=== PATIENT | female | born 1995 | race Caucasian/White ===

== ENCOUNTER 2021-12-02 02:50 | Inpatient (IN) | payer BC, SELFPAY ==
[2021-12-02] VITALS (80 sets, daily range): BP systolic 80–158; BP diastolic 51–85; PULSE 72–119; TEMP 36.2–37.2; O2SAT 88–100; BMI 35.2
[2021-12-02] MEDS: Lactated Ringers 500 ML 999 ML IV ×2 (03:20→10:50)
[2021-12-02 03:27] LABS: Absolute Lymphocyte Count 1.27 X10^3/uL (0.83-4.51); Absolute Neutrophil Count 11.2 X10^3/uL (2.0-7.7); Basophil# 0.04 X10^3/uL; Basophil% 0.3 % (0-1); Eosinophil# 0.02 X10^3/uL; Eosinophils% 0.2 % (0-5); Hematocrit 36.1 % (37-47); Hemoglobin 12.4 g/dL (12.0-15.0); Lymphocyte # 1.27 X10^3/ul (0.83-4.51); Lymphocyte % 9.7 % (19-41); Mean Corp Hgb Conc 34.3 g/dL (32-36); Mean Corpuscular Hgb 30.3 pg (27.0-32.0); Mean Corpuscular Volume 88.3 fL (81-99); Mean Platelet Vol. 10.1 fl (6.2-12.0); Monocyte# 0.49 X10^3/uL; Monocyte% 3.7 % (0-10); NRBC Flagged by Analyzer 0 % (0-5); Neutrophil # 11.21 X10^3/uL (2.7-7.7); Neutrophil % 85.6 % (47-70); POSITIVE COUNT YES; Platelet Count 162 K/mm3 (150-450); RBC Distribution Width SD 42.2 fl (35.1-43.9); Red Blood Count 4.09 M/mm3 (4.2-5.4); White Blood Count 13.1 K/mm3 (4.4-11.0)
[2021-12-02 03:52] LABS: Differential Indicated SCAN CRITERIA MET
[2021-12-02] MEDS: Lactated Ringers 1,000 ML 50 ML IV (04:21)
[2021-12-02] MEDS: fentaNYL 100 MCG/2 ML Ampul IV (04:26)
[2021-12-02] MEDS: fentaNYL-bupivacaine (epidural) 100 ML BAG EPIDURAL ×2 (06:10→10:47)
--- NOTE | 2021-12-02 08:23 | PCM.HP.OB ---
HPI - General General Date of Admission: 12/02/21 HPI Narrative CHEO MILLS, is a 26 F at 39.3 weeks gestation who presents to triage in spontaneous labor. She started having contractions earlier today. Positive movement. Denies any loss of fluid or vaginal bleeding. complicated by history of depression and rubella non-immune status. Maternal Data Information SARA Calculator Estimated Delivery Date Method Current WG Current Estimate 12/06/21 Manual 39w 3d PFSH PFSH Medical History (Updated 12/02/21 @ 08:30 by Jimena Jovel CNM) Anxiety Depression Family history of hearing loss at age younger than 7 years Right wrist injury Home Medications 1 tab PO/SL DAILY 12/02/21 [History Last Taken 11/30/21] Allergy/AdvReac Type Severity Reaction Status Date / Time No Known Allergies Allergy Verified 12/02/21 00:19 Surgical History [place] teeth extracted Social History Smoking Status: Never smoker History Elective abortions Hx Para 0 Spontaneous abortions Hx # Term Pregnancies Ectopic pregnancies Hx # Pregnancies Multiple births # of living children NST FHR Rate Baby A Baseline: 155 Variability:: Moderate Accelerations:: 15 x 15 Decelerations:: None NST Reactive:: Yes FHR Category:: Category I Uterine Activity:: 3-4 minutes ROS Eyes Eyes: Denies blurry vision, change in vision or spots in vision ENT HEENT: Denies dizziness or headache(s) Cardiovascular Cardiovascular: Denies abdominal pain, chest pain or dyspnea Respiratory/Chest Respiratory/Chest: Denies cough, dyspnea, shortness of breath at rest or shortness of breath with exertion Gastrointestinal Gastrointestinal: Denies abdominal pain, diarrhea or vomiting Genitourinary Genitourinary: Denies change in urinary stream, difficulty urinating or dysuria Musculoskeletal Musculoskeletal: Reports none Integumentary Integumentary: Denies rash Neurologic Neurologic: Denies dizziness, headache(s), memory loss or weakness Psychiatric Psychiatric: Reports none Vital Signs Vital Signs Vital Signs: 12/02/21 00:23 12/02/21 00:26 12/02/21 00:37 Temperature 98.1 F Temperature Source Temporal Pulse Rate 102 H 87 88 Blood Pressure 121/71 H BP Systolic 121 BP Diastolic 71 Pulse Ox 96 92 96 12/02/21 03:57 12/02/21 04:02 12/02/21 04:07 Temperature Temperature Source Pulse Rate 80 80 85 Blood Pressure 127/82 H BP Systolic 127 BP Diastolic 82 Pulse Ox 99 100 98 12/02/21 04:12 12/02/21 04:13 12/02/21 04:17 Temperature Temperature Source Pulse Rate 76 80 86 Blood Pressure 129/79 H BP Systolic 129 BP Diastolic 79 Pulse Ox 99 93 96 12/02/21 04:22 12/02/21 04:27 12/02/21 04:32 Temperature Temperature Source Pulse Rate 79 78 80 Blood Pressure BP Systolic BP Diastolic Pulse Ox 100 99 99 12/02/21 04:37 12/02/21 04:42 12/02/21 04:44 Temperature Temperature Source Pulse Rate 73 80 93 Blood Pressure 124/60 H BP Systolic 124 BP Diastolic 60 Pulse Ox 96 97 12/02/21 04:47 12/02/21 04:52 12/02/21 04:57 Temperature Temperature Source Pulse Rate 81 74 72 Blood Pressure 114/57 L BP Systolic 114 BP Diastolic 57 Pulse Ox 98 97 98 12/02/21 05:02 12/02/21 05:07 12/02/21 05:12 Temperature Temperature Source Pulse Rate 85 79 73 Blood Pressure BP Systolic BP Diastolic Pulse Ox 99 98 97 12/02/21 05:14 12/02/21 05:17 12/02/21 05:22 Temperature Temperature Source Pulse Rate 75 93 78 Blood Pressure 115/65 BP Systolic 115 BP Diastolic 65 Pulse Ox 99 98 12/02/21 05:27 12/02/21 05:28 12/02/21 05:32 Temperature Temperature Source Pulse Rate 84 75 94 Blood Pressure 127/75 H BP Systolic 127 BP Diastolic 75 Pulse Ox 100 99 12/02/21 05:37 12/02/21 05:42 12/02/21 05:47 Temperature Temperature Source Pulse Rate 109 H 85 96 Blood Pressure 129/72 H BP Systolic 129 BP Diastolic 72 Pulse Ox 97 99 99 12/02/21 05:48 12/02/21 05:52 12/02/21 05:54 Temperature Temperature Source Pulse Rate 81 90 91 Blood Pressure 143/85 H 119/64 BP Systolic 143 119 BP Diastolic 85 64 Pulse Ox 99 12/02/21 05:58 12/02/21 05:59 12/02/21 06:04 Temperature Temperature Source Pulse Rate 111 H 105 H Blood Pressure 120/63 114/66 BP Systolic 120 114 BP Diastolic 63 66 Pulse Ox 99 98 12/02/21 06:08 12/02/21 06:09 12/02/21 06:12 Temperature Temperature Source Pulse Rate 101 H 114 H 108 H Blood Pressure 111/70 112/66 BP Systolic 111 112 BP Diastolic 70 66 Pulse Ox 98 12/02/21 06:14 12/02/21 06:18 12/02/21 06:19 Temperature Temperature Source Pulse Rate 98 103 H 106 H Blood Pressure 108/67 BP Systolic 108 BP Diastolic 67 Pulse Ox 98 98 12/02/21 06:22 12/02/21 06:24 12/02/21 06:25 Temperature Temperature Source Pulse Rate 86 84 97 Blood Pressure 109/67 BP Systolic 109 BP Diastolic 67 Pulse Ox 98 98 12/02/21 06:30 12/02/21 06:35 12/02/21 06:40 Temperature Temperature Source Pulse Rate 93 95 88 Blood Pressure BP Systolic BP Diastolic Pulse Ox 98 99 98 12/02/21 06:45 12/02/21 06:50 12/02/21 06:55 Temperature Temperature Source Pulse Rate 80 87 100 Blood Pressure BP Systolic BP Diastolic Pulse Ox 98 98 98 12/02/21 06:59 12/02/21 07:00 12/02/21 07:05 Temperature Temperature Source Pulse Rate 119 H 105 H 77 Blood Pressure 104/69 BP Systolic 104 BP Diastolic 69 Pulse Ox 88 96 98 12/02/21 07:10 12/02/21 07:15 12/02/21 07:20 Temperature Temperature Source Pulse Rate 99 107 H 86 Blood Pressure BP Systolic BP Diastolic Pulse Ox 98 99 98 12/02/21 07:29 Temperature 98.3 F Temperature Source Temporal Pulse Rate 100 Blood Pressure 109/60 BP Systolic 109 BP Diastolic 60 Pulse Ox Weight Weight: 205 lb Body Mass Index (BMI) 35.2 Physical Exam Const alert, oriented x3 and no apparent distress General Appearance: cooperative Orientation / Consciousness: awake Exam Limitations: no limitations HEENT normocephalic Head and Scalp: normal to inspection Eyes General Eye: normal appearance of both eyes Neck full ROM and no lymphadenopathy Lymph Lymphatic: no lymphadenopathy noted Chest inspection of chest normal Resp normal respiratory effort, normal air movement and clear to auscultation bilaterally Effort and Inspection: able to speak in complete sentences and symmetric chest movement Cardio regular rate and regular rhythm GI normal to inspection, nondistended, normoactive bowel sounds Manual OB Exam: presentation cephalic, dilated 4, effaced 80 and station -2 Amniotic Fluid: clear amniotic fluid Back/Spine normal ROM Extremity full ROM and no calf tenderness Skin no rashes or lesions noted General Skin Exam: no breakdown Neuro oriented x3 and CN's II-XII intact bilaterally Psych mental status grossly normal and thought process normal Labs Labs Labs: Blood Type B POSITIVE Antibody Screen NEGATIVE Hct 36.1 % (37-47) L Hgb 12.4 g/dL (12.0-15.0) Rubella - NON immune HB- neg HC- neg HIV- NR RPR- NR GBS - negative Assessment & Plan (1) 39 weeks gestation of : (2) Spontaneous onset of labor: (3) Depression: QUALIFIERS: Depression Type: unspecified Qualified Code(s): F32.A - Depression, unspecified PLAN: Admit to labor and delivery Routine labs Start IV and titrate per orders GBS negative Epidural when indicated CE in 2 hours and if unchanged- start Pitocin IV at 2 mu/min and titrate per policy Anticipate Dr. Akers notified of admission and is collaborating physician
[2021-12-02] MEDS: Lactated Ringers 1,000 ML 200 ML IV (09:57)
[2021-12-02] MEDS: Oxytocin 30 units/NS 500 ml 30 UNITS/500 ML IV.SOLN IV (09:59)
[2021-12-02] MEDS: Oxytocin 30 units/NS 500 ml 30 UNITS/500 ML IV.SOLN 334 UNITS IV (16:50)
--- NOTE | 2021-12-02 17:10 | EX.PCM.OBRPT ---
Assessment & Plan (1) (spontaneous vaginal delivery): (2) Rubella non-immune status, antepartum: (3) Laceration, obstetrical, first degree: Maternal Data Information SARA Calculator Estimated Delivery Date Method Current WG Current Estimate 12/06/21 Manual 39w 3d Vaginal Delivery Maternal Presentation Maternal Presentation: - (Spontaneous labor) Maternal Presentation: at 39.3 weeks gestation that presented in spontaneous labor. Operative Information Date of Procedure: 12/02/21 Pre-Operative Diagnosis: Term gestation, Spontaneous labor Post-Operative Diagnosis: Same, live male Surgery / Procedure Performed: Spontaneous Vaginal Delivery Type of Anesthesia: Epidural Drain: Barnett to straight drain Estimated Blood Loss: 300 Time of Delivery: 16:48 Findings Description of Procedure: Pushed with patient at bedside once complete dilation. With maternal effort, head delivered and left arm and hand next to head. With next push, posterior then anterior shoulder and remainder of body delivered. Vigorous male placed on maternal abdomen and attended to by nursing staff. Pitocin IV started for active management of the third stage of labor. Placenta delivered spontaneously and intact. 3 vessel cord clamped and cut by FOB. First degree vaginal laceration repaired in usual fashion with Vicryl 3-0 Rapide. Hemostasis obtained. Fundus Firm 2 below U. EBL 300 cc, APGARS 9/9. Patient and infant bonding well at this time. Dr. Akers notified of delivery. Presentation: Vertex Amniotic Membrane Rupture Type: Artificial Amniotic Fluid Description: Clear Placental Delivery Description: Spontaneous Placenta Disposition: [facility] Cord Vessel Description: 3 Vessels Cord Entanglement: None Nuchal Cord Compression: Without compression A Gender: Male (1 minute): 9 (5 minute): 9 Delayed Cord Clamping: Yes
[2021-12-02] MEDS: 0.9% Saline Lock 10 ML Syringe IV (19:36)
--- NOTE | 2021-12-02 20:49 | NURSING ---
report given to carol GARCIA. that RN to assume care of pt at this time.
[2021-12-03] VITALS (12 sets, daily range): BP systolic 92–128; BP diastolic 53–70; PULSE 65–85; RESP 16–18; TEMP 36.1–36.8; O2SAT 99–100
[2021-12-03] MEDS: Acetaminophen 500 MG Tablet 1000 MG PO ×2 (03:28→11:51)
[2021-12-03] MEDS: Naproxen 500 MG Tablet PO ×2 (04:10→18:04)
--- NOTE | 2021-12-03 08:45 | PN.OBGYN_ITS ---
Subjective Subjective Doing well per patient and nursing staff. Ambulating and taking PO without difficulty. Voiding and passing flatus. Pain controlled. Bottlefeeding. Denies headache, visual changes, chest pain, shortness of breath, leg pain or increased bleeding. Lochia normal.Would like to be discharged home today. Objective Data Objective Data Vital Signs: Vital Signs Temp Pulse Resp BP Pulse Ox 98.3 F 71 18 116/70 100 12/03/21 00:25 12/03/21 03:33 12/03/21 03:33 12/03/21 03:33 12/03/21 03:33 Oxygen Delivery Method Room Air Weight: 205 lb Body Mass Index (BMI) 35.2 Intake & Output: Intake and Output for Last 24 Hours 12/01/21 12/02/21 12/03/21 23:59 23:59 23:59 Intake Total 4804.53 / 4804.53 Output Total 3150 / 3150 Balance 1654.53 / 1654.53 Lab / Micro Data Result Diagrams: 12/02/21 03:15 Micro: Microbiology 12/02/21 03:10 Nasal Secretion SARS-CoV-2 Antigen (Rapid) - Final ROS Constitutional Constitutional: Reports systems reviewed and no addt'l complaints, except as documented; Denies headache(s) Eyes Eyes: Denies acute decrease in peripheral vision, blurry vision or change in vision ENT HEENT: Reports systems reviewed and no addt'l complaints, except as documented Cardiovascular Cardiovascular: Denies chest pain or dizziness Respiratory/Chest Respiratory/Chest: Denies cough, dyspnea, dyspnea on exertion, shortness of breath at rest or shortness of breath with exertion Gastrointestinal Gastrointestinal: Denies abdominal pain, diarrhea, nausea or vomiting Genitourinary Genitourinary: Denies abdominal discomfort Musculoskeletal Musculoskeletal: Denies limited range of motion Integumentary Integumentary: Reports systems reviewed and no addt'l complaints, except as documented Neurologic Neurologic: Reports systems reviewed and no addt'l complaints, except as documented Psychiatric Psychiatric: Reports systems reviewed and no addt'l complaints, except as docu mented Endocrine Endocrinology: Reports systems reviewed and no addt'l complaints, except as documented Hematologic/Lymphatic Hematologic/Lymphatic: Reports systems reviewed and no addt'l complaints, except as documented Allergic/Immunologic Allergic/Immunologic: Reports systems reviewed and no addt'l complaints, except as documented Physical Exam Const alert and oriented x3 General Appearance: cooperative Orientation / Consciousness: awake, oriented to person, oriented to place and oriented to time Exam Limitations: no limitations HEENT normocephalic Head and Scalp: normal to inspection, normocephalic and atraumatic Face and Sinus: normal facial exam Eyes General Eye: normal appearance of both eyes Neck full ROM Chest Chest: symmetrical chest wall rise Resp normal respiratory effort and normal air movement Auscultation: clear to auscultation bilaterally Cardio regular rate, regular rhythm, S1 normal heart sound, S2 normal heart sound, no murmurs, no rub, no gallops and no clicks GI normal to inspection, nondistended, normoactive bowel sounds and non-tender appearance of the vagina normal Bladder / Kidney Exam: no CVA tenderness Back/Spine normal ROM Extremity normal to inspection and full ROM Skin no rashes or lesions noted Neuro oriented x3, CN's II-XII intact bilaterally and moves all extremities Sensorium / Orientation: awake, alert and oriented to person Motor Exam: clonus absent Deep Tendon Reflexes: Rt Patellar (L4): 2+ and Lt Patellar (L4): 2+ Assessment & Plan (1) Laceration, obstetrical, first degree: (2) (spontaneous vaginal delivery): (3) Rubella non-immune status, antepartum: (4) Depression: QUALIFIERS: Depression Type: unspecified Qualified Code(s): F32.A - Depression, unspecified PLAN: 1) Routine PP care 2) Pain management 3) VSS 4) Rubella non immune, vaccination if desires 5) Bottle feeding 6) D/C home today per patient request 7) Declines LARC
--- NOTE | 2021-12-03 13:16 | DS.PCM_ITS ---
Providers Date of Admission: 12/02/21 Reason For Visit: LABOR Diagnosis Discharge Diagnosis (1) Laceration, obstetrical, first degree: Status: Acute Code(s): O70.0 - First degree perineal laceration during delivery (2) (spontaneous vaginal delivery): Status: Acute Code(s): O80 - Encounter for full-term uncomplicated delivery (3) Rubella non-immune status, antepartum: Status: Acute Code(s): O99.891 - Other specified diseases and conditions complicating ; Z28.3 - Underimmunization status (4) Depression: Status: Acute Code(s): F32.A - Depression, unspecified Qualifiers: Depression Type: unspecified Qualified Code(s): F32.A - Depression, unspecified Medications at Discharge Home Medications 1 tab PO/SL DAILY 12/02/21 acetaminophen 1,000 mg PO Q6H PRN PRN #0 tab 12/03/21 benzocaine-menthol [Dermoplast (with menthol)] 1 spray TOPICAL TID PRN PRN #0 g 12/03/21 naproxen 500 mg PO Q8H PRN PRN #0 tab 12/03/21 Weight / BMI Weight Weight: 205 lb Body Mass Index (BMI) 35.2 ABG / Lab / Microbiology Data Result Diagrams: 12/02/21 03:15 Microbiology: Microbiology 12/02/21 03:10 Nasal Secretion SARS-CoV-2 Antigen (Rapid) - Final Meaningful Use Info Meaningful Use Diagnoses (Choose all that apply): None applicable Discharge Plan Admission Admit Date/Time: 12/02/21 02:50 Primary Reason for Your Visit: Vaginal delivery Attending Provider: Jimena Jovel Instructions Patient Instructions: After a Vaginal Additional Instructions / Restrictions: Follow up in 2 weeks for virtual visit and 6 weeks . Discharge Orders/Prescriptions Prescriptions: New Dermoplast (with menthol) 20-0.5 % Aerosol 1 spray topical TID PRN PRN (Reason: perineal discomfort) Qty: 0 RF: 0 acetaminophen 500 mg Tablet 1,000 mg PO Q6H PRN PRN (Reason: Pain 1-10 Or Fever) Qty: 0 RF: 0 naproxen 500 mg Tablet 500 mg PO Q8H PRN PRN (Reason: Pain Score 1-3) Qty: 0 RF: 0 Continued 1 tab PO/SL DAILY RF: 0 Referrals / Follow Up: Jimena Jovel CNM [Certified Nurse Opthalmic Tech] - Disposition Disposition (needs filled in before D/C Order can be placed): Home, Self Care
[2021-12-04] MEDS: Acetaminophen 500 MG Tablet 1000 MG PO (00:08)
[2021-12-04 01:45] VITALS: BP 108/55; PULSE 68; RESP 16; TEMP 36.1
--- NOTE | 2021-12-04 08:16 | PCM.PN.OB ---
Subjective Subjective Denies complaints Objective Data Objective Data Vital Signs: Vital Signs Temp Pulse Resp BP Pulse Ox 97 F L 68 16 108/55 L 99 12/04/21 01:45 12/04/21 01:45 12/04/21 01:45 12/04/21 01:45 12/03/21 09:15 Oxygen Delivery Method Room Air Weight: 205 lb Body Mass Index (BMI) 35.2 Intake & Output: Intake and Output for Last 24 Hours 12/02/21 12/03/21 12/04/21 23:59 23:59 23:59 Intake Total 4804.53 / 4804.53 Output Total 3150 / 3150 Balance 1654.53 / 1654.53 Lab / Micro Data Result Diagrams: 12/02/21 03:15 Micro: Microbiology 12/02/21 03:10 Nasal Secretion SARS-CoV-2 Antigen (Rapid) - Final Physical Exam Const alert, oriented x3 and no apparent distress HEENT normocephalic GI soft to palpation, non-tender and non-distended GI Narrative: fundus firm, mid & below umbilicus Extremity normal to inspection and no calf tenderness Assessment & Plan (1) (spontaneous vaginal delivery): COMMENT: PPD#2 PLAN: D/c home
[2021-12-04 08:46] VITALS: BP 104/57; PULSE 76
[2021-12-04] MEDS: Benzocaine/Lanolin/Aloe Vera 1 SPRAY EACH TOPICAL (08:59)
[2021-12-04] MEDS: Senna/Docusate Sodium 1 Tablet PO (08:59)
[2021-12-04] MEDS: Naproxen 500 MG Tablet PO (09:00)
[2021-12-04 09:38] VITALS: BP 104/57; PULSE 82; RESP 18; TEMP 36.3; O2SAT 98
[2021-12-04 12:54] VITALS: BP 112/67; PULSE 86
[2021-12-04 13:03] VITALS: BP 112/67; PULSE 86; RESP 18; TEMP 36.8; O2SAT 98
== END 2021-12-04 13:50 | disposition home or self-care (01) | DRG 807 ==
LOC: WPOUT 02:57 → WP 02:57
PROVIDERS: Admitting Provider Advanced Practice Midwife; Visit Provider Advanced Practice Midwife
DX: O99.344 Other mental disorders complicating childbirth (principal); Z37.0 Single live birth; F32.A Depression, unspecified; F41.9 Anxiety disorder, unspecified; O69.81X0 Labor and delivery complicated by cord around neck, without compression, not applicable or unspecified; O70.0 First degree perineal laceration during delivery; Z3A.39 39 weeks gestation of pregnancy
CPT/HCPCS: 59025; 59050; 85025; 86850; 86900; 86901; 87426; 99218; J7120; A4216; G0378

== ENCOUNTER → 2024-02-25 | Outpatient (CLI) | payer OTHER, SELFPAY ==
[2024-02-25 15:41] LABS: Absolute Lymphocyte Count 1.87 X10^3/uL (0.83-4.51); Absolute Neutrophil Count 4.4 X10^3/uL (2.0-7.7); Basophil# 0.03 X10^3/uL; Basophil% 0.5 % (0-1); Eosinophil# 0.06 X10^3/uL; Eosinophils% 0.9 % (0-5); Hematocrit 39.9 % (37-47); Hemoglobin 13.1 g/dL (12.0-15.0); Lymphocyte # 1.87 X10^3/ul (0.83-4.51); Lymphocyte % 28.2 % (19-41); Mean Corp Hgb Conc 32.8 g/dL (32-36); Mean Corpuscular Hgb 29.4 pg (27.0-32.0); Mean Corpuscular Volume 89.7 fL (81-99); Mean Platelet Vol. 11.4 fl (6.2-12.0); Monocyte# 0.25 X10^3/uL; Monocyte% 3.8 % (0-10); NRBC Flagged by Analyzer 0 % (0-5); Neutrophil % 66.3 % (47-70); Platelet Count 161 K/mm3 (150-450); RBC Distribution Width CV 12.4 % (11.6-14.6); RBC Distribution Width SD 40.4 fl (35.1-43.9); Red Blood Count 4.45 M/mm3 (4.2-5.4); White Blood Count 6.6 K/mm3 (4.4-11.0)
[2024-02-25 16:33] LABS: Thyroid Stim Hormone (TSH) 1.75 uIU/mL (0.358-3.74)
== END | disposition home or self-care (01) ==
PROVIDERS: Referring Provider Student in an Organized Health Care Education/Training Program; Visit Provider Student in an Organized Health Care Education/Training Program
DX: F32.9 Major depressive disorder, single episode, unspecified (principal)
CPT/HCPCS: 36415; 84443; 85025

== ENCOUNTER 2024-11-19 17:11 | Emergency (ER) | payer OTHER, SELFPAY ==
[2024-11-19 17:12] VITALS: BP 118/82; PULSE 97; RESP 18; TEMP 36.8; O2SAT 100; BMI 31.6
--- NOTE | 2024-11-19 18:05 | EDS_ITS ---
HPI History of Present Illness Chief Complaint: Other, Pain/Inj Informant: patient Onset/Context/Timing Onset: Weeks (1) Context: Gradual Onset Timing: Continuous Quality: Pressure Location: Frontal Worsened by: Bending forward Relieved by: Nothing Narrative Narrative: Patient presents with headache and left flank pain. Patient states her headache has been getting worse over the last week. Patient states her flank pain has been getting worse over the past few days. Patient states her pain is gradually getting worse. Patient describes it as a pressure over the frontal area. Patient states it radiates into her back. Patient states it is worse when she bends forward. Patient describes her left flank pain as aching. Patient states nothing makes it worse and nothing makes it better. Patient admits to some subjective chills. Patient admits to some shortness of breath. Patient denies any dysuria or hematuria. Patient denies any nausea or vomiting. [facility] Medical History MDD (major depressive disorder) IZABELA (generalized anxiety disorder) Right wrist injury Family history of hearing loss at age younger than 7 years Depression Anxiety Home Medications ?Medication ?Instructions ?Recorded ?Last Taken ?Type levonorgestrel (Mirena) 1 device intrauterine ONCE 04/08/23 Unknown History hydroxyzine HCl 10 mg tablet 10 mg PO TID PRN anxiety #90 tabs 08/23/24 Unknown Rx fluoxetine 40 mg capsule 40 mg PO DAILY #30 caps 10/25/24 Unknown Rx sulfamethoxazole 800 1 tab PO BID #6 TABLETS 11/19/24 Unknown Rx mg-trimethoprim 160 mg tablet Allergy/AdvReac Type Severity Reaction Status Date / Time latex Allergy Mild Rash Verified 11/19/24 17:12 Surgical History [place] teeth extracted Social History Smoking Status: Never smoker alcohol intake: never substance use type: does not use ROS ROS ED Constitutional Constitutional ED: Reports chills and subjective; Denies fever(s) Eyes Eyes: Denies blurry vision or change in vision ENT ENT ED: Denies rhinorrhea or sore throat Cardiovascular Cardiovascular: Denies chest pain or palpitations Respiratory/Chest Respiratory/Chest: Reports dyspnea; Denies cough Gastrointestinal Gastrointestinal: Denies nausea or vomiting Genitourinary Genitourinary ED: Denies dysuria or hematuria Musculoskeletal Musculoskeletal: Reports neck pain; Denies back pain Integumentary Denies abscess or rash Neurologic Neurologic: Reports headache(s); Denies weakness Allergic/Immunologic Allergic/Immunologic ED: Denies mouth swelling or urticaria EXAM Physical Exam Const Vital Signs: 11/19/24 17:12 11/19/24 17:39 Temperature 98.2 F Temperature Source Oral Pulse Rate 97 Respiratory Rate 18 Respiratory Pattern Normal Blood Pressure 118/82 H Blood Pressure Mean 94 Pulse Ox 100 Oxygen Delivery Method Room Air Positive well nourished and well developed General Appearance ED: well developed and NAD HEENT Reports TM's clear and moist mucous membranes HEENT Narrative: There is mild tenderness over the right frontal sinus. Oropharynx is clear. Airway is patent. Neck is supple. Tympanic Membrane ED: Yes TM's clear bilateral Neck no lymphadenopathy, supple and no JVD Resp normal respiratory effort and clear to auscultation bilaterally Cardio regular rate and regular rhythm GI non-tender and non-distended Palpation: soft Back/Spine General Back: CVA tenderness left Extremity normal to inspection Neuro oriented x3, CN's II-XII intact bilaterally and no sensory deficits noted Sensorium / Orientation: alert Motor Exam: strength 5/5 throughout Psych mental status grossly normal MDM MDM MDM Narrative Medical decision making narrative: Differential diagnosis includes migraine headache, tension headache, sinusitis, ureteral calculus, pyelonephritis, urinary tract infection, and viral illness. CBC will be obtained to assess for leukocytosis and anemia. Basic metabolic profile will be obtained to assess for electrolyte abnormality and renal function. Urinalysis will be obtained to assess for urinary tract infection and hematuria. CT scan of the abdomen and pelvis will be obtained to assess for ureteral calculus and pyelonephritis. Lab Data Attestation: I reviewed the patient's lab results. Lab results narrative: CBC was reviewed and was within normal limits. Basic metabolic profile was reviewed and was within normal limits. Urinalysis was reviewed. Urine ketones were 150. There were positive nitrates. Leukocyte esterase was 500. There were 10-25 white blood cells. There his 3+ bacteria. Labs: Laboratory Results - last 24 hr 11/19/24 18:30 WBC 6.8 RBC 4.26 Hgb 12.8 Hct 37.3 MCV 87.6 MCH 30.0 MCHC 34.3 RDW Std Deviation 39.7 RDW Coeff of Miles 12.5 Plt Count 128 L MPV 10.7 Immature Gran % (Auto) 2.800 H Neut % (Auto) 75.8 H Lymph % (Auto) 13.3 L Dickenson % (Auto) 7.1 Eos % (Auto) 0.3 Baso % (Auto) 0.7 Absolute Neuts (auto) 5.1 Absolute Lymphs (auto) 0.90 Nucleated RBC % 0 Sodium 136 Potassium 3.7 Chloride 105 Carbon Dioxide 28.0 Anion Gap 3 L BUN 13 Creatinine 0.68 Estim Creat Clear Calc 128.73 Est GFR (MDRD) Af Amer 132 Est GFR (MDRD) Non-Af 109 BUN/Creatinine Ratio 19.2 Glucose 92 Calcium 8.7 Urine Color Yellow Urine Clarity Clear Urine pH 6.0 Ur Specific [place] 1.025 Urine Protein 30 H Urine Glucose (UA) Normal Urine Ketones 150 A* Urine Occult Blood 50 H Urine Nitrite Positive H Urine Bilirubin Negative Urine Urobilinogen 1 H Ur Leukocyte Esterase 500 H Urine RBC 0-5 SEEN Urine WBC 10-25 SEEN Ur Squamous Epith Cells 0-5 SEEN Urine Bacteria 3+ Urine Mucus 1+ Radiography Diagnostic Testing: Clinical Impression(s) from Imaging Studies Abdomen/Pelvis CT 11/19/24 18:05 IMPRESSION: Bilateral nephrolithiasis without evidence for renal obstruction or ureteral calculus No evidence for small bowel obstruction or other acute abnormality Electronically Signed: Brody Rodas MD at 19:25 EST Reading Location ID and State: [address] [place] [address] Tel , Service support , CT scan of the abdomen and pelvis was obtained. There is bilateral nephrolithiasis. There is no evidence of ureteral calculus or renal obstruction. There is no other acute abnormality noted. This was interpreted by the radiologist and was also independently reviewed by myself. Additional Tests and Interventions Additional Tests or Interventions: Urine culture was ordered. Treatment and Re-Evaluation :: Patient was given IV fluids, Reglan, and Benadryl. Patient had minimal relief with this. Patient was given injection of Toradol. Patient was advised of her findings. Patient was given a dose Bactrim here. Patient was given a prescrip tion for Bactrim. Patient was instructed to follow-up with her primary care physician in 5 to 7 days. Patient was instructed return if worse in any way. Patient understood and was agreeable with the plan. All questions were answered. Discharge Plan Triage Chief Complaint: Other, Pain/Inj Other Complaint: Headache ED Provider: Jean-Paul Preston Dx/Rx/DC Orders Clinical Impression: Urinary tract infection, Headache Instructions: ED Headache Unspecified, ED Cystitis Female Adult Prescriptions: New sulfamethoxazole-trimethoprim 800-160 mg tablet 1 tab PO BID Qty: 6 0RF No Action Mirena 21 mcg/24 hours (8 yrs) 52 mg intrauterine device 1 device intrauterine ONCE Rx Instructions: as a single dose hydroxyzine HCl 10 mg tablet 10 mg PO TID PRN (Reason: anxiety) Qty: 90 1RF fluoxetine 40 mg capsule 40 mg PO DAILY Qty: 30 2RF Primary Care Provider: Care Physician,No Primary Referrals: Alan Pat MD [Med Staff - [place]] - 5-7 Days Care Physician,No Primary [Primary Care Provider] - Print Language: Nepalese Disposition Disposition: Home, Self Care
--- NOTE | 2024-11-19 18:05 | CT_ITS ---
STUDY: CT ABDOMEN AND PELVIS WITHOUT CONTRAST REASON FOR EXAM: Female, 29 years old. Flank pain RADIATION DOSAGE (If Supplied By Facility): CTDIvol = ( 11.01 ) mGy, DLP = ( 566.80 ) mGycm TECHNIQUE: Transaxial images were obtained from the dome of the diaphragm to the symphysis pubis without oral contrast, and without intravenous contrast. Sagittal and coronal images were reconstructed. Individualized dose optimization techniques were used for this CT. COMPARISON: None. FINDINGS: The visualized lung bases are unremarkable. The visualized portions of the heart are within normal limits. Normal liver. Normal gallbladder and extrahepatic biliary system. Borderline splenomegaly Normal pancreas. Normal bilateral adrenal glands. There are 2 tiny nonobstructing renal calculi on the right and one in the left. No evidence for renal obstruction or ureteral calculus Normal visualized stomach. Normal small intestine. Normal colon. The appendix is visualized and appears normal. Normal abdominal aorta. Normal inferior vena cava. Normal retroperitoneum. Incompletely distended mildly thick walled bladder likely of no significance. IUD noted within the uterine canal in satisfactory position. Small left ovarian cyst is noted Normal abdominal wall. Normal osseous structures. CT/Abdomen/Pelvis without Cont IMPRESSION: Bilateral nephrolithiasis without evidence for renal obstruction or ureteral calculus No evidence for small bowel obstruction or other acute abnormality Electronically Signed: Brody Rodas MD at 19:25 EST ,
[2024-11-19] MEDS: DiphenhydrAMINE 50 MG/ML Syringe 25 MG IV (18:38)
[2024-11-19] MEDS: 0.9% Normal Saline (1000mL) 1,000 ML 999 ML IV (18:38)
[2024-11-19] MEDS: Metoclopramide 10 MG/2 ML Vial IV (18:38)
[2024-11-19 18:59] LABS: Color, Urine Yellow (Yellow); Glucose, Dipstick Normal (Normal); Leukocyte Esterase-Dipstick 500 /ul (Negative); Nitrite-Dipstick Positive (Negative); Occult Blood-Urine 50 /ul (Negative); Protein-Dipstick 30 mg/dl (Negative); Specific Gravity, Urine 1.025 (1.002-1.030); Urine Bilirubin Dipstick Negative (Negative); Urine Clarity Clear (Clear); Urine Urobilinogen 1 mg/dl (Normal)
[2024-11-19 19:06] LABS: Anion Gap 3 (5-15); BUN 13 mg/dL (7-18); BUN/Creat Ratio 19.2 RATIO (10-20); Calcium,Total 8.7 mg/dL (8.5-10.1); Chloride 105 mmol/L (98-107); Creatinine, Serum 0.68 mg/dL (0.55-1.02); EST Glomerular Filtration Rate 109 mL/min (>60); Est Glom Filt Rate - Afr Amer 132 mL/min (>60); Estimated Creatinine Clearance 128.73 ml/min; Glucose 92 mg/dL (74-106); Potassium 3.7 mmol/L (3.5-5.1); Sodium Level 136 mmol/L (136-145)
[2024-11-19 19:08] LABS: Ketone-Dipstick 150 mg/dl (Negative)
[2024-11-19 19:09] LABS: Absolute Neutrophil Count 5.1 X10^3/uL (2.0-7.7); Basophil# 0.05 X10^3/uL; Basophil% 0.7 % (0-1); Eosinophil# 0.02 X10^3/uL; Eosinophils% 0.3 % (0-5); Hematocrit 37.3 % (37-47); Hemoglobin 12.8 g/dL (12.0-15.0); Lymphocyte % 13.3 % (19-41); Mean Corp Hgb Conc 34.3 g/dL (32-36); Mean Corpuscular Volume 87.6 fL (81-99); Mean Platelet Vol. 10.7 fl (6.2-12.0); Monocyte# 0.48 X10^3/uL; Monocyte% 7.1 % (0-10); NRBC Flagged by Analyzer 0 % (0-5); Neutrophil # 5.13 X10^3/uL (2.7-7.7); Neutrophil % 75.8 % (47-70); Platelet Count 128 K/mm3 (150-450); RBC Distribution Width CV 12.5 % (11.6-14.6); RBC Distribution Width SD 39.7 fl (35.1-43.9); Red Blood Count 4.26 M/mm3 (4.2-5.4); White Blood Count 6.8 K/mm3 (4.4-11.0)
[2024-11-19 19:14] LABS: Bacteria 3+ /hpf (None Seen); Mucous, Urine 1+ /hpf (<or=2+); Red Blood Cells-Urine 0-5 SEEN /hpf (0-5); Squamous Epithelial Cells - UA 0-5 SEEN /hpf (5-10); White Blood Cells 10-25 SEEN /hpf (0-5)
[2024-11-19] MEDS: Smz/Tmp Ds Tablet 1 TABLET PO (20:08)
[2024-11-19 20:11] VITALS: BP 114/71; PULSE 100; RESP 18; TEMP 36.7; O2SAT 99
== END 2024-11-19 20:12 | disposition home or self-care (01) ==
PROVIDERS: Emergency Provider Emergency Medicine; Visit Provider Emergency Medicine
DX: N39.0 Urinary tract infection, site not specified (principal); R51.9 Headache, unspecified
CPT/HCPCS: 74176; 80048; 81001; 85025; 96361; 96374; 96375; 96376; 99284; A4216

== ENCOUNTER 2025-10-11 11:58 | Emergency (ER) | payer BC, SELFPAY ==
[2025-10-11 12:00] VITALS: BP 111/87; PULSE 80; RESP 20; TEMP 36.9; O2SAT 100; BMI 39.5
--- NOTE | 2025-10-11 13:53 | EKG12_ITS ---
Test Reason : CP Blood Pressure : */* mmHG Vent. Rate : 84 BPM Atrial Rate : 84 BPM P-R Int : 144 ms QRS Dur : 94 ms QT Int : 402 ms P-R-T Axes : 40 37 39 degrees QTcB Int : 475 ms Normal sinus rhythm Normal ECG Confirmed by Christiano Pittman ([id number]), newspaper photo editor YUE GEORGE ([id number]) on 10/12/2025 10:34:00 AM Referred By: Confirmed By: Christiano Pittman
--- NOTE | 2025-10-11 13:54 | RAD_ITS ---
PROCEDURE: CHEST PA AND LATERAL 10/11/2025 REASON FOR EXAM: CHEST PAIN TECHNIQUE: Procedure Code: RADCXR Modality: DX Procedure: CHEST PA AND LATERAL COMPARISON: None FINDINGS: Hardware: EKG electrodes are seen. Heart: The heart size is normal. Mediastinum: The mediastinal contour is unremarkable. Lungs: Hyperinflation. The lungs are clear. Bones: The bones are unremarkable. RAD/Chest PA and Lateral IMPRESSION: Hyperinflation. The lungs are clear. Reading Location: [id number]
--- NOTE | 2025-10-11 13:54 | EX.ED.DYSGE1 ---
HPI History of Present Illness Chief Complaint: Chest Other Narrative Narrative: Patient is a 30-year-old female past medical history of of anxiety, depression who presents to the emergency department the chief complaint of chest pain. States that the chest pain is on the left side started on Friday while she was sitting down relaxing she does not remember any trauma or picking up anything heavy. She states that this has persisted prompting her to come here for further evaluation management. Patient denies any history of blood clots denies any travel history. States that it gets better when she gets up and walks and is worse when she rests. [facility] Medical History MDD (major depressive disorder) IZABELA (generalized anxiety disorder) Right wrist injury Family history of hearing loss at age younger than 7 years Depression Anxiety Home Medications Medication Instructions Recorded Last Taken Type NK 10/11/25 Unknown History Allergy/AdvReac Type Severity Reaction Status Date / Time latex Allergy Mild Rash Verified 10/11/25 11:59 Surgical History [place] teeth extracted Social History Smoking Status: Never smoker alcohol intake: never substance use type: does not use ROS ROS ED ROS Narrative Constitutional: Denies any fevers, chills, headaches Eyes: Denies double vision Cardiovascular: Complains of chest pain as noted above denies palpitations Respiratory: Denies coughing wheezing Abdomen: Denies abdominal pain nausea vomit diarrhea : Denies urinary symptoms Neurological: Denies any numbness, weeks, tingling Musculoskeletal: Denies back pain Skin: Denies any rashes or lesions EXAM Physical Exam Narrative Exam Narrative: general: Patient was lying in bed rest comfortably did not appear to be in acute distress Head: Atraumatic, normocephalic Eyes: PERRL bilaterally, EOMI bilateral, no conjunctival injection noted Neck: Soft, supple, trachea midline Cardiovascular: Regular rate and rhythm Respiratory: Clear to auscultation bilaterally Abdomen: Soft, nondistended, no tenderness palpation Extremities: +5/5 strength noted in the bilateral lower extremities Neurological: Patient follow commands knew that she was at [facility] year is 2024 Skin: Warm, dry, tact no rashes or lesions noted Const Vital Signs: 10/11/25 12:00 10/11/25 13:39 10/11/25 13:59 Temperature 98.5 F Temperature Source Oral Pulse Rate 80 86 Respiratory Rate 20 H 15 Respiratory Effort Normal Non-Labored Blood Pressure 111/87 H 107/69 Blood Pressure Mean 95 81 Pulse Ox 100 100 Oxygen Delivery Method Room Air 10/11/25 14:08 10/11/25 15:00 10/11/25 15:31 Temperature 98.2 F Temperature Source Pulse Rate 87 87 Respiratory Rate 15 15 Respiratory Effort Blood Pressure 107/67 107/67 Blood Pressure Mean 80 80 Pulse Ox 99 99 Oxygen Delivery Method Room Air Room Air MDM MDM MDM Narrative Medical decision making narrative: Patient is a 30-year-old female who presents to the emergency department with chief complaint of chest pain. On the differential diagnose includes but limited to musculoskeletal strain, ACS although low suspicion for this, pulmonary embolism also have low suspicion for this. Once workup is obtained reviewed she will be reevaluated. Medford Score (Revised) for Pulmonary Embolism from [facility] on 10/11/2025 All calculations should be rechecked by clinician prior to use RESULT SUMMARY: 3 points Low risk group: 7-9% incidence of PE from several studies. INPUTS: Age >65 —> 0 = No Previous DVT or PE —> 0 = No Surgery (under general anesthesia) or lower limb fracture in past month —> 0 = No Active malignant condition —> 0 = No Unilateral lower limb pain —> 0 = No Hemoptysis —> 0 = No Heart rate —> 3 = 75-94 Pain on lower limb palpation and unilateral edema —> 0 = No Patient's CBC reviewed showed no evidence leukocytosis white blood count normal 8.3, hemoglobin 13.2, platelet count normal at 190. Patient sodium normal 137, potassium normal 3.7, creatinine was noted to be 0.58. Patient's troponin was less than 6. test negative. Patient's chest x-ray reviewed and showed no acute cardiopulmonary processes. EKG reviewed showed sinus rhythm at a rate of 84 bpm I reviewed the results with the patient she would like to go home at this point time. She is advised to rotate Tylenol and ibuprofen [id number] for pain control follow-up with her doctors outpatient setting return with worsening symptoms or other concerns. She is agreeable this plan all question concerns answered she was discharged home in stable condition Lab Data Labs: Laboratory Results - last 24 hr 10/11/25 14:09 WBC 8.3 RBC 4.34 Hgb 13.2 Hct 38.3 MCV 88.2 MCH 30.4 MCHC 34.5 RDW Std Deviation 38.5 RDW Coeff of Miles 12.0 Plt Count 190 MPV 9.8 Immature Gran % (Auto) 0.400 Neut % (Auto) 74.4 H Lymph % (Auto) 20.4 Mower % (Auto) 3.8 Eos % (Auto) 0.6 Baso % (Auto) 0.4 Absolute Neuts (auto) 6.2 Absolute Lymphs (auto) 1.70 Nucleated RBC % 0 Sodium 138 Potassium 3.7 Chloride 104 Carbon Dioxide 24.7 Anion Gap 10 BUN 10 Creatinine 0.58 L Estim Creat Clear Calc 168.60 Est GFR (MDRD) Non-Af 125 BUN/Creatinine Ratio 17.5 Glucose 83 Calcium 9.0 Troponin T High Sens < 6 Serum , Qual NEGATIVE Radiography Diagnostic Testing: Clinical Impression(s) from Imaging Studies Chest X-Ray 10/11/25 13:54 IMPRESSION: Hyperinflation. The lungs are clear. Reading Location: [facility] Discharge Plan Triage Chief Complaint: Chest Other ED Provider: Francisco Kim Dx/Rx/DC Orders Clinical Impression: Chest pain, Musculoskeletal strain, History of depression Prescriptions: No Action NK Primary Care Provider: Care Physician,No Primary Referrals: Care Physician,No Primary [Primary Care Provider, Medical] Activity Restrictions/Additional Instructions: Follow-up with your doctor referred to. Return with worsening symptoms or any concerns. Your blood work did not show any acute findings your chest x-ray is normal. Rotate Tylenol and ibuprofen [id number] for pain control when you do this you can take something every 3 hours for pain max dose Tylenol in 24 hours 4000 mg max dose of ibuprofen in 24 hours 3200 mg Print Language: Greek Disposition Disposition: Home, Self Care D/C Safety Score for UGIB Assessment Ayla-Blatchford Bleeding Score (GBS): Stratifies upper GI bleeding patients who are "low-risk" and candidates for outpatient management. Hemoglobin, BUN, Recent Vital Signs: Hgb 13.2 g/dL (12.0-15.0) 10/11/25 14:09 BUN 10 mg/dL (4-19) 10/11/25 14:09 Pulse Rate 87 Blood Pressure 107/67 Total Risk Score: 0 Score Interpretation: Score of 0: A GBS of 0 is a “Low Risk” GI bleed, and is highly sensitive (99.6% in a 2007 retrospective study) for predicting which patients did not require any “medical intervention”: blood transfusion, endoscopy, or surgery. This was confirmed in a 2009 [facility] study where patients with a score of 0 were actually discharged and had no GI bleeding mortality at 6 month followup Score above 0: A GBS greater than zero suggests a “High Risk” GI bleed that is likely to require “medical intervention”: transfusion, endoscopy, or surgery. A higher GBS also correlated with a higher likelihood of needing intervention Scores >/= 6 are associated with >50% risk of needing intervention D/C Safety Score for LGIB Assessment Assessment Tool: Readmission and adverse event risk in patients with acute lower GI bleeding. Age, in years: <40 Hemoglobin and Recent Vital Signs: Hgb 13.2 g/dL (12.0-15.0) 10/11/25 14:09 Pulse Rate 87 10/11/25 15:31 Blood Pressure 107/67 10/11/25 15:31 Probability of safe discharge: 99% Total Risk Score: 0 Score Interpretation: Probability Percentage of safe discharge (absence of rebleeding, blood transfusion, therapeutic intervention, 28 day readmission, or ) Score of 8 or below: Consider discharge, with appropriate precautions. Score of 9 or above: Discharge NOT recommended. Consider admission with further workup and resuscitation as necessary.
[2025-10-11 13:59] VITALS: BP 107/69; PULSE 86; RESP 15; O2SAT 100
[2025-10-11 14:19] LABS: Hematocrit 38.3 % (37-47); Hemoglobin 13.2 g/dL (12.0-15.0); Immature Granulocytes Count 0.030 X10^3/uL (0.0-0.0); Mean Corp Hgb Conc 34.5 g/dL (32-36); Mean Corpuscular Volume 88.2 fL (81-99); Mean Platelet Vol. 9.8 fl (6.2-12.0); NRBC Flagged by Analyzer 0 % (0-5); Platelet Count 190 K/mm3 (150-450); RBC Distribution Width CV 12.0 % (11.6-14.6); RBC Distribution Width SD 38.5 fl (35.1-43.9); Red Blood Count 4.34 M/mm3 (4.2-5.4); White Blood Count 8.3 K/mm3 (4.4-11.0)
[2025-10-11] MEDS: 0.9% Normal Saline (1000mL) 1,000 ML 999 ML IV (14:27)
[2025-10-11 14:37] LABS: Internal QC Validated? YES +Cl - CLEAR BKGD; Pregnancy, Serum, hCG Quali. NEGATIVE Negative; Record Kit Lot#, Serum Preg. 980607
[2025-10-11 14:56] LABS: Anion Gap 10 (5-15); BUN 10 mg/dL (4-19); BUN/Creat Ratio 17.5 RATIO (10-20); Calcium,Total 9.0 mg/dL (7.6-11.0); Carbon Dioxide 24.7 mmol/L (21.0-32.0); Chloride 104 mmol/L (98-108); Estimated Creatinine Clearance 168.60 ml/min (50-250); Glucose 83 mg/dL (70-99); Potassium 3.7 mmol/L (3.3-5.1); Troponin T High Sensitivity < 6 ng/L (<=14)
[2025-10-11 15:00] VITALS: BP 107/67; PULSE 87; RESP 15; O2SAT 99
--- OUTSIDE RECORDS SUMMARY | 2025-10-11 15:27 | XMS RPT_ITS | CCD ---
Author Organization [facility] Inform ion Partnership [facility] Care Team Providers Care Physical Therapy Assistant Name Role Phone Unavailable Primary Care Provider Unavailroge [place] Required, No Pcp Unavailable Unavailable Nate Camarena Unavailable Unavailable Dr. Nate Camarena Attending UnavailMALI Arizmendi Primary Care Unavail able Freddie Bolanos PA-C Primary Care Provider FREDDIE BOLANOS Attending Unavailable FREDDIE BOLANOS Primary Care Unavailable Unavailable Primary Care Provider UnavailAlphonso Angeles MD Primary Care Provider Ann-Marie Valdez APRN.CNP Unavailable [phone] ALPHONSO BUENO Primary Care Unavailable PATRICIA MORAN Attending Unavailable JIMENA MILLAN Referring Unavailable ANN-MARIE VALDEZ Attending Unavailable [facility] Referring Khadijah vailable ALPHONSO BUENO Primary Care Unavailable ALPHONSO BUENO Primary Care Unavailable Darius Peterson Attending Unavailable Care Physician, No Primary Primary Care Unava ilable Care Physician, No Primary Primary Care Unava ilable Darius Peterson Attending Unavailable Care Physician, No Primary Primary Care Unava ilable Darius Peterson Attending Unavailable Care Physician, No Primary Primary Care Unava ilable Jean-Paul Preston Attending Unavailable Darius Peterson Attending Unavailable Care Physician, No Primary Primary Care Unava ilable Care Physician, No Primary Primary Care Unava ilable Darius Peterson Attending Unavailable Care Physician, No Primary Referring Unava ilable Darius Peterson Attending Unavailable Care Physician, No Primary Primary Care Unava ilable Care Physician, No Primary Referring Unava ilable Care Physician, No Primary Primary Care Unava ilable Darius Peterson Attending Unavailable Care Physician, No Primary Referring Unava ilable Care Physician, No Primary Primary Care Unava ilable Darius Peterson Attending Unavailable Allergies Allergy Classification Reported Allergen(s) Allergy Type Date of Onset Reaction(s) Facility (5 sources) Latex; Translations: [LATEX] 05-22-2023 Rash [facility] Medications Current Medications Medication Drug Class(es) Dates Sig (Normalized) Sig (Original) acetaminophen 300 mg / butalbital 50 mg / caffeine 40 mg oral capsule (1 source) Barbiturate, Central Nervous System Stimulant, Methylxanthine Start: 05-22-2023 take 1 capsule by mouth every four hours butalbital-acetam inophen-caff (Fioricet) 50-300-40 mg capsule Indications: Acute intractable headache, unspecified headache type Take 1 capsule by mouth every 4 hours. 30 capsule 0 05/22/2023 Active Start: 05-22-2023 take 1 capsule by mo uth every four hours dietcviolh-hvzdhvuwhcrcg-jmnq (Fioricet) 50-300-40 mg capsule Indications: Acute intractable headache, unspecified headache type Take 1 capsule by mouth every 4 hours. 30 capsule 0 05/22/2023 Active amoxicillin 875 mg / clavulanate 125 mg oral tablet (1 source) Penicillin-class Antibacterial Start: 04-30-2023 End: 05-07-2023 take 1 tablet by mouth twice daily amoxicillin-clavulanic acid (AUGMENTIN) 875-125 mg per tablet Take 1 tablet by mouth twice daily for 7 days. 14 tablet 0 04/30/2023 05/07/2023 Active Comment on above: Take 1 tablet by mouth twice daily for 7 days. ARIPiprazole 5 mg oral tablet (2 sources) Atypical Antipsychotic Start: 05-04-2025 take 1 tablet by mouth once daily ARIPiprazole (ABILIFY) 5 mg tablet Take 1 tablet by mouth once daily. Prescribed by psychiatry 05/04/2025 Active azithromycin 250 mg oral tablet (1 source) Macrolide Antimicrobial Start: 05-22-2023 azithromycin (Zithromax) 250 mg tablet Indications: Bilateral serous otitis media, unspecified chronicity Take 1 tablet (250 mg) by mouth once daily. 2 tabs po day 1 1 tab po every day days 2-5 6 tablet 0 05/22/2023 Active Start: 05-22-2023 azithromycin ( Zithromax) 250 mg tablet Indications: Bilateral serous otitis media, unspecified chronicity Take 1 tablet (250 mg) by mouth once daily. 2 tabs po day 1 1 tab po every day days 2-5 6 tablet 0 05/22/2023 Active brompheniramine maleate 0.4 mg/ml / dextromethorphan hydrobromide 2 mg/ml / pseudoephedrine hydrochloride 6 mg/ml oral solution (1 source) alpha-Adrenergic Agonist, Uncompetitive X-orslpz-Q-aspartate Receptor Antagonist, Sigma-1 Agonist Start: 05-22-2023 take 5 mL by mouth every four hours for cough shgizslmvqsrvqy-zdyxfiejy-FE (Bromfed DM) 2-30-10 mg/5 mL syrup Indications: Bilateral serous otitis media, unspecified chronicity Take 5 mL by mouth every 4 hours if needed for allergies, congestion or cough. 120 mL 1 05/22/2023 Active Start: 05-22-2023 take 5 mL by mouth every four hours for cough eusbtaxlscvlvvv-shfckpgmn-MC (Bromfed DM ) 2-30-10 mg/5 mL syrup Indications: Bilateral serous otitis media, unspecified chronicity Take 5 mL by mouth every 4 hours if needed for allergies, congestion or cough. 120 mL 1 05/22/2023 Active cephalexin 500 mg oral capsule (1 source) Cephalosporin Antibacterial Start: 08-12-2024 End: 08-19-2024 take 1 capsule by mouth twice daily cephALEXin (KEFLEX) 500 mg capsule Take 1 capsule by mouth two times a day for 7 days. 14 capsule 08/12/2024 08/19/2024 Active FLUoxetine 20 mg oral capsule (5 sources) Serotonin Reuptake Inhibitor Start: 03-28-2024 take 1 capsule by mouth once FLUoxetine (PROZAC) 20 mg capsule Take 1 capsule by mouth every afternoon. 03/28/2024 Active levonorgestrel 0.485441 mg/hr intrauterine system (11 sources) Progestin, Progestin-containin g Intrauterine Device Start: 02-14-2022 End: 02-12-2029 levonorgestrel (MIRENA) 20 mcg/24 hours (7 yrs) 52 mg IUD Indications: Encounter for IUD insertion 1 Each by INTRAUTERINE route as directed. 1 Each 02/14/2022 02/12/2029 Active Start: 02-14-2022 End: 02-12-2029 levonorgestrel (Mirena) 21 m cg/24 hours (8 yrs) 52 mg IUD 52 mg by intrauterine route. 0 02/14/2022 02/12/2029 Active Comment on above: 1 Each by INTRAUTERI NE route as directed. meclizine hydrochloride 25 mg oral tablet (2 sources) Antiemetic Start: 05-19-20 End: 05-25-20 take 1 tablet by mouth three times daily Antivert 25 mg oral tablet ; 1 tab(s) orally 3 times a day Quantity: 21 Refills: 0 Ordered: 19-May-2023 Nate Camarena Start: 19-May-2023 End: 25-May-2023 Generic Substitution Allowed ondansetron 4 mg disintegrating oral tablet (2 sources) Serotonin-3 Receptor Antagonist Start: 05-19-20 End: 05-22-20 take 1 tablet by mouth three times daily ondansetron 4 mg oral tablet, disintegrating ; 1 tab(s) orally 3 times a day Quantity: 12 Refills: 0 Ordered: 19-May-2023 Nate Camarena Start: 19-May-2023 End: 22-May-2023 Generic Substitution Allowed take 1 tablet by yessi every eight hours as needed ondansetron (Zofran) 4 mg tablet Take 1 tablet (4 mg) by mouth every 8 hours if needed for nausea or vomiting. 0 Active predniSONE 10 mg oral tablet (2 sources) Start: 04-12-2024 End: 04-17-2024 take 4 tablets by mouth once daily predniSONE (DELTASONE) 10 mg tablet Take 4 tablets by mouth once daily for 5 days. 20 tablet 0 04/12/2024 04/17/2024 Active Start: 05-22-2023 take 3 tablets by mo [facility] once daily, then take 2 tablets by mouth once daily, then take 1 tablet by mouth once daily predniSONE (Deltasone) 10 mg tablet Indications: Bilateral serous otitis media, unspecified chronicity 3 tabs po every day x 2 days, then 2 tabs po every day x 2 days, then 1 tab po every day every day x2 days 12 tablet 0 05/22/2023 Active SUMAtriptan 50 mg oral tablet (2 sources) Serotonin-1b and Serotonin-1d Receptor Agonist Start: 05-04-2025 SUMAtriptan (IMITREX ) 50 mg tablet Take one tablet by mouth at the onset of the headache. If no improvement in 2 hours take one more tablet. No more than 2 tablets in 24 hours 2 tablet 05/04/2025 Active Completed/Discontinued Medications Medication Drug Class(es) Dates Sig (Normalized) Sig (Original) aspirin 81 mg delayed release oral tablet (2 sources) Platelet Aggregation Inhibitor, Nonsteroidal Anti-inflammatory Drug Start: 04-26-2021 End: 12-16-2022 take 1 tablet by mouth once daily aspirin, enteric coated (ASPIRIN, ENTERIC COATED) 81 mg EC tablet Take 1 tablet by mouth once daily. To start at 12 weeks gestation 30 tablet 5 04/26/2021 12/16/2022 Discontinued (Course of therapy completed) Comment on above: [facility] 1 [facility] daily. To start at 12 weeks gestation 24 hr buPROPion hydrochloride 150 mg extended release oral tablet (7 sources) Aminoketone Start: 04-09-2023 End: 05-04-2025 take 1 tablet by mouth once daily in the morning buPROPion XL (WELLBUTRIN XL) 150 mg 24 hr tablet Take 150 mg by mouth every morning. 04/09/2023 05/04/2025 Discontinued (Discontinued by another Health Care Provider) Comment on above: Take 150 mg by mouth every morning. ergocalciferol 1.25 mg oral capsule (6 sources) Provitamin D2 Compound Start: 12-18-2022 End: 05-04-2025 take 1 capsule by mouth two times weekly ergocalciferol 50,000 unit capsule (VITAMIN D2, DRISDOL) Indications: Vitamin D deficiency Take 1 capsule by mouth two times a week. 24 capsule 12/18/2022 05/04/2025 Discontinued (Discontinued by another Health Care Provider) Comment on above: Take 1 capsule by mo [facility] two times a week. Yqddujxh-To-Pwo-Fe-F A tab (2 sources) Start: 04-26-2021 End: 12-16-2022 take 1 tablet by mouth once daily Njutehbt-Ea-Wmg-Fe- FA tab Take 1 tablet by mouth once daily. 30 tablet 11 04/26/2021 12/16/2022 Discontinued (Course of therapy completed) Start: 04-26-2021 take 1 tablet by yessi th once daily Wgegdufe-Vt-Kfm-Fe-FA tab Take 1 tablet by mouth once daily. 30 tablet 11 04/26/2021 Active Comment on above: Take 1 tablet by yessi th once daily. Problems Active Problems Problem Classification Problem Date Documented Date Episodic/Chronic Abdominal pain (2 sources) Lower abdominal pain; Translations: [Lower abdominal pain, unspecified] 08-09-2024 Episodic Allergic reactions (1 source) Latex allergy status; Translations: [Latex allergy status] Onset: 05-19-2023 Episodic Anxiety disorders (16 sources) Mixed anxiety and depressive disorder; Translations: [Other specified anxiety disorders] Onset: 12-16-2022 Chronic Conditions associated with dizziness or vertigo (7 sources) Vertigo; Translations: [Dizziness and giddiness] Onset: 05-19-2023 05-19-2023 Episodic Contraceptive and procreative management (3 sources) Contraception ; Translations: [Encounter for surveillance of other contraceptives] Onset: 09-05-2025 Episodic Headache; including migraine (4 sources) Headache; Translations: [Headache] 05-19-2023 Episodic Headache; including migraine (5 sources) Headache; including migraine; Translations: [Headache, unspecified] Onset: 05-19-2023 Mood disorders (5 sources) Recurrent major depression; Translations: [Major depressive disorder, recurrent, unspecified] Onset: 03-22-2025 05-04-2025 Chronic Mood disorders (2 sources) Mood disorders; Translations: [Depression, unspecified] Onset: 05-22-2023 Nausea and vomiting (2 sources) Nausea with vomiting, unspecified; Translations: [Nausea with vomiting, unspecified] Onset: 05-19-2023 Episodic Nutritional deficiencies (1 source) Vitamin D deficiency; Translations: [Vitamin D deficiency, unspecified] Chronic Other nutritional; endocrine; and metabolic disorders (10 sources) Obese class II; Translations: [Obesity, unspecified] Onset: 12-16-2022 Chronic Other nutritional; endocrine; and metabolic disorders (1 source) Weight gain; Translations: [Abnormal weight gain] Episodic Other nutritional; endocrine; and metabolic disorders (1 source) Weight increased; Translations: [Abnormal weight gain] 05-04-2025 Episodic Other upper respiratory disease (1 source) Chronic rhinitis; Translations: [Unspecified sinusitis (chronic)] Chronic Otitis media and related conditions (4 sources) Otitis media of left ear; Translations: [Otitis media, unspecified, left ear] Onset: 05-22-2023 Episodic Spondylosis; intervertebral disc disorders; other back problems (1 source) Acute low back pain; Translations: [Acute right-sided low back pain, unspecified whether sciatica present] 04-12-2024 Episodic Unclassified (2 sources) DIZZYNESS, HEADACH, NAUSEA 05-19-2023 Comment on above: DIZZYNESS, HEADACH, NAUSEA Unclassified (1 source) Cancer cervix screening status 05-04-2025 Unclassified (1 source) Frequent headaches; Translations: [Frequent headaches] Onset: 05-04-2025 Past or Other Problems Problem Classification Problem Date Documented Da te Episodic/Chronic Coagulation and hemorrhagic disorders (2 sources) Easy bruising; Translations: [Spontaneous ecchymoses] Onset: 05-04-2025 05-04-2025 Episodic Malaise and fatigue (10 sources) Fatigue; Translations: [Other fatigue] Onset: 12-16-2022 Resolved: 05-04-2025 Episodic Other complications of (5 sources) Obesity; Translations: [Obesity complicating , unspecified trimester] Onset: 07-18-2021 Resolved: 01-22-2022 01-22-2022 Chronic Other complications of (5 sources) High risk ; Translations: [Supervision of high risk , unspecified, third trimester] Onset: 09-27-2021 Resolved: 01-22-2022 01-22-2022 Episodic Other nutritional; endocrine; and metabolic disorders (1 source) Abnormal weight gain; Translations: [Weight gain] Onset: 05-04-2025 Episodic Other screening for suspected conditions (not mental disorders or infectious disease) (2 sources) Cancer cervix screening status; Translations: [Encounter for screening for malignant neoplasm of cervix] Onset: 05-04-2025 05-04-2025 Episodic Screening and history of mental health and substance abuse codes (8 sources) H/O: depression; Translations: [Personal history of other mental and behavioral disorders] Onset: 04-26-2021 04-26-2021 Episodic Unclassified (1 source) Onset: 05-22-2023 05-22-2023 Unclassified (1 source) Patient encounter status 08-15-2025 Results Test Name Value Interpretation Reference Range Facility [facility] 09-05-2025 CNOV Office Visit (OBGYWM ) CHEO WOODSON ([id number]) 1995 F Date Time Provider Department 09/05/25 3:20 PM PATRICIA MORAN OBGYWM During your visit today, we recorded the following information about you: Blood pressure Weight 122/64 97.7 kg Patricia Moran MD 09/05/2025 3:51 PM Signed Patient declined head of sales promotion. Cheo presents for removal of IUD due to desire for . UNIVERSAL PROTOCOL / SAFETY CHECKLIST Procedure to be Performed: Removal Mirena Intrauterine Device. Sign In: A Moment of CARE was completed. Appropriate PPE (Personal Protective Equipment) worn by all providers involved with the procedure. Special equipment not required. Patient/Surrogate Stated/Verified: Patient name, Date of , Relevant allergies, and The intended procedure Time Out: Relevant labs, photos, and/or imaging studies have been reviewed. Intended patient and procedure match the source document(s) (e.g. consent, HANDP, associated studies [imaging, pathology]) match the intended patient and procedure. Consent obtained and matches the intended procedure. Yes. Correct side/site is not applicable. Medications required for this procedure are not applicable. Fire risk assessed and is not applicable. Implants: are not applicable. Sign Out: Specimens not collected. All instruments, equipment, possible retained foreign bodies are accounted for. Yes. The post-procedure plan of care has been communicated to the patient or surrogate. PROCEDURE: Speculum placed in vagina, IUD string visualized and grasped with ring forceps. ASSESSMENT/PLAN: IUD removed without difficulty, intact, and patient tolerated procedure well. Contraception plans: none Reviewed pre-conception guidelines including folic acid supplementation, optimal timing of intercourse, avoidance of smoking, alcohol, exposure to environmental chemicals and need for evaluation if not within 12 months. Patricia Moran MD Referring Provider: JIMENA MILLAN [[id number]] Allergies As of Date: 09/05/2025 Noted Allergy Reaction LATEX 05/22/2023 2 - Rash Date Reviewed: 09/05/2025 Reviewed by: Patricia Moran MD - Fully Assessed Reason for Visit: IUD Removal [1950] Primary Visit Diagnosis:Encounter for IUD removal [Z30.432] Order(s):REMOVE INTRAUTERINE DEVICE [[id number]] Order #: [id number] Prescriptions as of 09/05/2025 - ARIPiprazole (ABILIFY) 5 mg tablet Take 1 tablet by mouth once daily. Prescribed by psychiatry - SUMAtriptan (IMITREX) 50 mg tablet Take one tablet by mouth at the onset of the headache. If no improvement in 2 hours take one more tablet. No more than 2 tablets in 24 hours - FLUoxetine (PROZAC) 20 mg capsule Take 1 capsule by mouth every afternoon. - levonorgestrel (MIRENA) 20 mcg/24 hours (7 yrs) 52 mg IUD 1 Each by INTRAUTERINE route as directed. Problem List As Of Date 09/05/2025 Noted Resolved Patient request for diagnostic testing [Z01.89] 04/26/2021 01/22/2022 Obesity in [O99.210] 07/18/2021 01/22/2022 Supervision of high risk in third tri*09/27/2021 01/22/2022 Obesity, Class II, BMI 35-39.9 [E66.812] 12/16/2022 Fatigue [R53.83] 12/16/2022 05/04/2025 Recurrent major depressive disorder [F33.9] 05/04/2025 Generalized anxiety disorder [F41.1] 05/04/2025 Disposition: Return if symptoms worsen or fail to improve, for Routine annual exam. Follow-up and Disposition History for Encounter Date Provider Department Center 09/05/2025 [id number] MORAN Encounter Status:Closed by PATRICIA MORAN on 09/05/25 [facility] 08-15-2025 [facility] Telephone (4CQ) CHEO WOODSON ([id number]) 1995 F Date Time Provider Department 08/15/25 ALPHONSO BUENO 4CQ During your visit today, we recorded the following information about you: Yazmin Day 08/15/2025 4:43 PM Signed Pt requesting order for Mirena removal. Please advise, Thank you Jimena Millan APRN.WM 08/15/2025 4:50 PM Signed Order signed. Jimena Millan APRN.Shaylee Martinez RN 08/15/2025 4:52 PM Signed Please contact patient to schedule IUD removal. JOSE Morrow Sherrie 08/17/2025 8:[address] attempt left message to return call to schedule IUD removal with [facility], currently no insurance on this account and patient has not spoken with PFA to be approved to schedule at this time. Allergies As of Date: 08/15/2025 (No Known Allergies) Date Reviewed: 05/04/2025 Reviewed by: Ann-Marie Valdez APRN.TELEPHONE LINES REPAIRER - Fully Assessed Reason for Visit: Orders [681] Primary Visit Diagnosis:Encounter for IUD removal [Z30.432] Order(s):REMOVE INTRAUTERINE DEVICE [[id number]] Order #: [id number] Prescriptions as of 08/17/2025 - ARIPiprazole (ABILIFY) 5 mg tablet Take 1 tablet by mouth once daily. Prescribed by psychiatry - SUMAtriptan (IMITREX) 50 mg tablet Take one tablet by mouth at the onset of the headache. If no improvement in 2 hours take one more tablet. No more than 2 tablets in 24 hours - FLUoxetine (PROZAC) 20 mg capsule Take 1 capsule by mouth every afternoon. - levonorgestrel (MIRENA) 20 mcg/24 hours (7 yrs) 52 mg IUD 1 Each by INTRAUTERINE route as directed. Problem List As Of Date 08/15/2025 Noted Resolved Patient request for diagnostic testing [Z01.89] 04/26/2021 01/22/2022 Obesity in [O99.210] 07/18/2021 01/22/2022 Supervision of high risk in third tri*09/27/2021 01/22/2022 Obesity, Class II, BMI 35-39.9 [E66.812] 12/16/2022 Fatigue [R53.83] 12/16/2022 05/04/2025 Recurrent major depressive disorder [F33.9] 05/04/2025 Generalized anxiety disorder [F41.1] 05/04/2025 Encounter Status:Closed by JIMENA MILLAN on 08/15/25 [facility] MR/BMS.BPon 06-29-2025 MR/BMS.BP [address], [place] [address] OFFICE VISIT Date of Service: 06/29/25 MR#: [id number] Acct: [id number] Name: CHEO WOODSON ANN Rep #: [id number] : 1995 Provider: Dr. Darius Bee se, DO Age/Sex: 30/F Location: [facility] Status: Signed Intake Vital Signs 03/21/25 15:31 06/29/25 13:08 Height 5 ft 4 in 5 ft 4 in Weight: 200 lb BMI 34.3 BP 110/73 Blood Pressure Location Lt brachial Position Sitting Respiration 16 Pulse 86 Pulse Source Monitor BP Intake Visit Reasons: f/u Allergies latex Allergy (Mild, Verified 03/21/25 15:31) Rash PFSH Medical History MDD (major depressive disorder) IZABELA (generalized anxiety disorder) Right wrist injury Family history of hearing loss at age younger than 7 years Depression Anxiety Surgical History [place] teeth extracted Social History Smoking Status: Never smoker alcohol intake: never substance use type: does not use HPI History of Present Illness History provided by: patient Chief complaint: Depression HPI: Cheo Woodson is a 30 year old female who presents today for follow up evaluation via virtual visit. Patient reports that she had continued to gain weight with aripiprazole and so did discontinue. She has since stopped it about 2 weeks ago. Since stopping feels slightly more awake. Does feel somewhat more depressed since stopping. Has continued to take fluoxetine. Has been taking iron supplement in the past. Has been somewhat more tired at new job. Does find that it has been much more stressful. Still working 10 hour days. Had a major "breakdown" this last weekend and is not sure why. Denies SI/HI or AVH. This tele-medicine visit was performed via audio/video technology. Review of Systems Constitutional Reports: fatigue; Denies: fever(s), chills or change in weight Eyes Denies: change in vision or blurry vision Ears, Nose, Mouth, Throat Denies: throat pain, neck pain, change in hearing or nasal congestion Cardiovascular Denies: chest pain, palpitations or dyspnea Respiratory Denies: dyspnea, cough or wheezing Gastrointestinal Denies: abdominal pain, nausea, vomiting, diarrhea or constipation Genitourinary Denies: dysuria or urinary frequency Musculoskeletal Denies: back pain, neck pain, joint pain or muscle weakness Integumentary/Breast Denies: rash or new lesions Neurological Reports: headache(s) (intermittent) and dizziness; Denies: confusion Endocrine Reports: fatigue; Denies: excessive sweating Hematologic/Lymphatic Denies: easy bruising or easy bleeding Allergic/Immunologic Denies: wheezing Exam Mental Status Exam - Psych Appearance casually dressed Attitude cooperative Activity/Motor Behavior MSE activity/motor behavior finding no adventitious movements Speech regular rate, regular volume and regular prosody Mood depressed Affect constricted Thought Process linear, logical and coherent Thought Content no delusions and no hallucinations Suicidal Ideation none Homicidal Ideation none Attention intact Concentration intact Sensorium/Orientation awake, alert and oriented x3 Memory/Cognition other (appropriate for stated age) Insight good Judgement good Assessment Plan Assessment Plan (1) MDD (major depressive disorder): Plan: - has stopped taking aripiprazole secondary to weight gain - We will cross titrate duloxetine for fluoxetine ???Patient was informed about the risk, benefits and possible side effects of SNRI type medications. These side effects include but are not limited to nausea, diarrhea, headache, increased bleeding risk, and sexual dysfunction. SNRI medications are not to be discontinued abruptly as these can worsen side effects of medication. Please contact office prior to discontinuing these medications for discontinuation instructions. (2) IZABELA (generalized anxiety disorder): Plan: - Cymbalta as above Medications: New duloxetine 30 mg PO DAILY 30 caps 2RF fluoxetine 20 mg PO DAILY 30 caps 0RF Discontinued aripiprazole Discontinued Reason: Pt no longer taking 5 mg PO QDAY 30 tabs 2RF F32.9 - Major depressive disorder, single episode, unspecified, F41.1 - Generalized anxiety disorder Coding Level of Care Code Est Sync Audio-Video Mod 30min Diagnoses MDD (major depressive disorder) F32.9 IZABELA (generalized anxiety disorder) F41.1 07/04/25617 Date Darius Peterson DO [facility] Signature: Date (if applicable) [facility] Office Visit (INTMWS ) CHEO WOODSON ([id number]) 1995 F Date Time Provider Department 05/04/25 6:20 PM ANN-MARIE VALDEZ INTMWS During your visit today, we recorded the following information about you: Pulse Respiration Blood pressure Weight 74/minute 12/minute 124/82 94 kg Height 1.63 m Ann-Marie Valdez, CARE ASST.TELEPHONE LINES REPAIRER 05/04/2025 6:44 PM Signed CC: Patient presents with: Headache: 3 out 7 days x 2-3 months with nausea, blurry vision, light sensitivity Bleeding/Bruising: X 2-3 months HPI Recording using [employer] software for draft documentation of the visit was discussed with the patient/authorized outside dealer sales representative; all questions welcomed and answered. 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 She is accompanied by her child. Cheo reports the onset of headaches approximately 3 months ago, occurring 3-4 times per week. The headaches are described as sharp and dull, primarily located on the top of the head, and are associated with photophobia, phonophobia, dizziness, and occasional blurred vision. The headaches vary in duration, lasting from a few hours to all day, and sometimes extending into the next day. She has tried Excedrin with minimal relief and has not attempted other non-pharmacological interventions such as resting in a dark, quiet room or using a cold washcloth. She denies a prior history of headaches and notes that her current medication Abilify, was started prior to the onset of the headaches. The headaches have remained consistent in frequency and intensity since their onset. She also reports easy bruising on her legs and arms without significant trauma, and denies hematochezia, melena, hematuria, gingival bleeding, or excessive bleeding from cuts. She denies fever, chills, night sweats, or excessive fatigue. Additionally, she expresses concern about recent weight gain despite dietary efforts, noting that her current weight is comparable to her weight during . She suspects that her medication may be contributing to the weight gain. She has been on fluoxetine for an extended period and started Abilify recently, both prescribed by her psychiatrist, Dr. Peterson. She had blood work done approximately a year ago, which included thyroid function tests. Her last recorded weight in March was 200 lbs, and today it is 207 lbs. She weighed 198 lbs a month ago. Review of Systems HENT: Negative for congestion, dental problem, sinus pressure, sinus pain, sneezing and sore throat. Respiratory: Negative for cough, shortness of breath and wheezing. Cardiovascular: Negative for chest pain, palpitations and leg swelling. Endocrine: Negative for cold intolerance, heat intolerance, polydipsia, polyphagia and polyuria. Neurological: Negative for tremors, seizures, syncope, facial asymmetry, speech difficulty, weakness and numbness. PAST MEDICAL HISTORY Diagnosis Date Anemia Depression Fatigue 12/16/2022 alcohol syndrome (HCC) PAST SURGICAL HISTORY Procedure Laterality Date MIRENA 02/14/2022 Placed in office PAST SURGICAL HISTORY OF right forearm tendon TOOTH EXTRACTION 2015 wisdom teeth ALLERGIES Patient has no known allergies. MEDICATIONS FLUoxetine (PROZAC) 20 mg capsule Take 1 capsule by mouth every afternoon. levonorgestrel (MIRENA) 20 mcg/24 hours (7 yrs) 52 mg IUD 1 Each by INTRAUTERINE route as directed. ARIPiprazole (ABILIFY) 5 mg tablet Take 1 tablet by mouth once daily. Prescribed by psychiatry SUMAtriptan (IMITREX) 50 mg tablet Take one tablet by mouth at the onset of the headache. If no improvement in 2 hours take one more tablet. No more than 2 tablets in 24 hours FAMILY HISTORY Problem Relation Age of Onset Alcohol/Drug Mother Alcohol/Drug Father other (cirrhosis of liver) Father No Known Problems Sister No Known Problems Sister No Known Problems Sister No Known Problems Sister No Known Problems Brother No Known Problems Maternal Grandmother No Known Problems Maternal Grandfather No Known Problems Paternal Grandmother No Known Problems Paternal Grandfather Social History Tobacco Use Smoking status: Never Smokeless tobacco: Never Vaping Use Vaping status: Never Used Substance Use Topics Alcohol use: Never Drug use: Never BP 124/82 Pulse 74 Resp 12 Ht 163 cm (5' 4.17") Wt 94 kg (207 lb 3.7 oz) LMP 02/11/2022 (LMP Unknown) SpO2 99% BMI 35.38 kg/m? Physical Exam Vitals reviewed. Constitutional: Appearance: Normal appearance. HENT: Head: Normocephalic and atraumatic. Mouth/Throat: Mouth: Mucous membranes are moist. Pharynx: Oropharynx is clear. Eyes: Extraocular Movements: Extraocular movements intact. Conjunctiva/sclera: Conjun (more content not included)... Normal [facility] MR/BMS.BPon 03-21-2025 MR/BMS. [facility] [address] [place] [address], [address] [place] [address] OFFICE VISIT Date of Service: 03/21/25 MR#: [id number] Acct: [id number] Name: CHEO WOODSON Rep #: [id number] : 1995 Provider: Dr. Darius Bee se, DO Age/Sex: 30/F Location: [facility].BP Status: Signed Intake Vital Signs 01/24/25 16:11 03/21/25 15:31 Height 5 ft 4 in 5 ft 4 in Weight: 200 lb BMI 34.3 BP 110/73 Blood Pressure Location Lt brachial Position Sitting Respiration 16 Pulse 86 Pulse Source Monitor BP Intake Visit Reasons: 6 wk FU Accompanied by: Self Allergies latex Allergy (Mild, Verified 03/21/25 15:31) Rash Medications ???Medication ???Instructions ???Recorded ???Confirmed ???Type levonorgestrel (Mirena) 1 device intrauterine ONCE 3 03/21/25 History hydroxyzine HCl 10 mg tablet 10 mg PO TID PRN anxiety #90 tabs 08/23/24 03/21/25 Rx sulfamethoxazole 800 1 tab PO BID #6 TABLETS 11/19/24 0 03/21/25 Rx mg-trimethoprim 160 mg tablet fluoxetine 40 mg capsule 40 mg PO DAILY #30 caps 01/24/25 0 03/21/25 Rx aripiprazole 5 mg tablet 5 mg PO QDAY #30 tabs 03/21/25 Rx PFSH Medical History MDD (major depressive disorder) IZABELA (generalized anxiety disorder) Right wrist injury Family history of hearing loss at age younger than 7 years Depression Anxiety Surgical History Vassar teeth extracted Social History Smoking Status: Never smoker alcohol intake: never substance use type: does not use HPI History of Present Illness History provided by: patient HPI: Cheo Woodson is a 30 year old female who presents today for follow up evaluation. Patient reports that she has been "alright." Patient reports that her energy has been mildly better in recent past. Feels like her depression is reduced. Does still have some difficulty with motivation, but better. Started improving about 2 weeks after starting aripiprazole. Sleep has been a little bit better but is feeling tired during the day. Just woke up from a nap today. Has not been sleeping through her alarms. Does feel about 25% better. Will be moving jobs to [employer] in the near future. Starts next week and will be working 6-4:30. Has felt like it has been hard for her to lose weight. Denies SI/HI or AVH. Review of Systems Constitutional Reports: fatigue; Denies: fever(s), chills or change in weight Eyes Denies: change in vision or blurry vision Ears, Nose, Mouth, Throat Denies: throat pain, neck pain, change in hearing or nasal congestion Cardiovascular Denies: chest pain, palpitations or dyspnea Respiratory Denies: dyspnea, cough or wheezing Gastrointestinal Denies: abdominal pain, nausea, vomiting, diarrhea or constipation Genitourinary Denies: dysuria or urinary frequency Musculoskeletal Denies: back pain, neck pain, joint pain or muscle weakness Integumentary/Breast Denies: rash or new lesions Neurological Reports: headache(s) (intermittent) and dizziness; Denies: confusion Endocrine Reports: fatigue; Denies: excessive sweating Hematologic/Lymphatic Denies: easy bruising or easy bleeding Allergic/Immunologic Denies: wheezing Exam Mental Status Exam - Psych Appearance casually dressed Attitude cooperative Activity/Motor Behavior MSE activity/motor behavior finding no adventitious movements Speech regular rate, regular volume and regular prosody Mood depressed (But improved) Affect congruent Thought Process linear, logical and coherent Thought Content no delusions and no hallucinations Suicidal Ideation none Homicidal Ideation none Attention intact Concentration intact Sensorium/Orientation awake, alert and oriented x3 Memory/Cognition other (appropriate for stated age) Insight good Judgement good Assessment Plan Assessment Plan (1) MDD (major depressive disorder): Plan: - Reports to feeling approximately 25% better since starting Abilify; we will titrate to efficacy and increase to 5 mg every day -Does feels that she has gained some weight in recent past however she is unsure if it is related to medication use; we will watch closely. I took her weight today and she weighed 200 pounds - Patient was informed of the risk, benefits, and possible side effects of antipsychotics medications. Side effects of these medications can include but are not limited to orthostatic hypotension (low blood pressure), weight gain, metabolic side effects, extrapyramidal side effects, and tardive dyskinesia. If you notice any abnormal movements including involuntary movement of muscles of face, lips, torso or legs please contact t (more content not included)... Normal [facility] MR/BMS.BPon 01-24-2025 MR/BMS.BP [facility] ry [address], [address] [place] [id number] OFFICE VISIT Date of Service: 01/24/25 MR#: [id number] Acct: [id number] Name: CHEO WOODSON ANN Rep #: [id number] : 1995 Provider: Dr. Darius Bee se, DO Age/Sex: 30/F Location: [facility].BP Status: Signed Intake Vital Signs 10/25/24 15:59 11/19/24 17:12 01/24/25 16:11 Height 5 ft 4 in 5 ft 4 in 5 ft 4 in BP 107/64 Blood Pressure Location Rt brachial Position Sitting Respiration 16 Pulse 68 Pulse Source Monitor BP Intake Visit Reasons: follow up Allergies latex Allergy (Mild, Verified 11/19/24 17:12) Rash PFSH Medical History MDD (major depressive disorder) IZABELA (generalized anxiety disorder) Right wrist injury Family history of hearing loss at age younger than 7 years Depression Anxiety Surgical History Vassar teeth extracted Social History Smoking Status: Never smoker alcohol intake: never substance use type: does not use HPI History of Present Illness History provided by: patient HPI: Cheo Woodson is a 30 year old female who presents today for follow up evaluation. 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 Reports that anxiety has been ok. Has been feeling much more tired in recent past, and she is not sure if this is depression or something else. Does feel somewhat low in regards to mood. Has trouble finding tanner in things and has very low motivation. Sleep at night has been fairly stable. Denies snoring. Has slept through alarm recently which is unlike her. . Review of Systems Constitutional Reports: fatigue; Denies: fever(s), chills or change in weight Eyes Denies: change in vision or blurry vision Ears, Nose, Mouth, Throat Denies: throat pain, neck pain, change in hearing or nasal congestion Cardiovascular Denies: chest pain, palpitations or dyspnea Respiratory Denies: dyspnea, cough or wheezing Gastrointestinal Denies: abdominal pain, nausea, vomiting, diarrhea or constipation Genitourinary Denies: dysuria or urinary frequency Musculoskeletal Denies: back pain, neck pain, joint pain or muscle weakness Integumentary/Breast Denies: rash or new lesions Neurological Reports: headache(s) (intermittent) and dizziness; Denies: confusion Endocrine Reports: fatigue; Denies: excessive sweating Hematologic/Lymphatic Denies: easy bruising or easy bleeding Allergic/Immunologic Denies: wheezing Exam Mental Status Exam - Psych Appearance casually dressed Attitude withdrawn Activity/Motor Behavior MSE activity/motor behavior finding no adventitious movements Speech regular rate, regular volume and regular prosody Mood depressed Affect congruent Thought Process linear, logical and coherent Thought Content no delusions and no hallucinations Suicidal Ideation none Homicidal Ideation none Attention intact Concentration intact Sensorium/Orientation awake, alert and oriented x3 Memory/Cognition other (appropriate for stated age) Insight good Judgement good Assessment Plan Assessment Plan (1) MDD (major depressive disorder): Plan: - will add aripiprazole 2 mg every day for adjunctive treatment of depression - Patient was informed of the risk, benefits, and possible side effects of antipsychotics medications. Side effects of these medications can include but are not limited to orthostatic hypotension (low blood pressure), weight gain, metabolic side effects, extrapyramidal side effects, and tardive dyskinesia. If you notice any abnormal movements including involuntary movement of muscles of face, lips, torso or legs please contact the office immediately. (2) IZABELA (generalized anxiety disorder): Plan: - Continue prozac at 40 mg every day - has not been using hydroxyzine with much frequency Medications: New aripiprazole 2 mg PO QDAY 30 tabs 2RF F32.9 - Major depressive disorder, single episode, unspecified, F41.1 - Generalized anxiety disorder Refilled fluoxetine 40 mg PO DAILY 30 caps 2RF F32.9 - Major depressive disorder, single episode, unspecified, F41.1 - Generalized anxiety disorder Coding Level of Care Code Off vis,est,level 4 Diagnoses MDD (major depressive disorder) F32.9 IZABELA (generalized anxiety disorder) F41.1 01/25/25 0639 Date Darius Cox Signature: Date (if applicable) CC: Normal [facility] Abdomen/Pelvis without Conto n 11-19-2024 Abdomen/Pelvis without Cont [facility] Imaging Services [address] [place] [address] Abdomen/Pelvis without Cont MR#: [id number] Acct: [id number] Name: GENECHEO ELLER TEODORA Rep #: [id number] : 1995 F 29 From: Brody Rodas MD PCP: Care Physician,No Primary Status: REG ER Study: Abdomen/Pelvis without Cont Date of Exam: 11/01 Exam# [id number] Ordering Dr: [place] [id number] STUDY: CT ABDOMEN AND PELVIS WITHOUT CONTRAST REASON FOR EXAM: Female, 29 years old. Flank pain RADIATION DOSAGE (If Supplied By Facility): CTDIvol = ( 11.01 ) mGy, DLP = ( 566.80 ) mGycm TECHNIQUE: Transaxial images were obtained from the dome of the diaphragm to the symphysis pubis without oral contrast, and without intravenous contrast. Sagittal and coronal images were reconstructed. Individualized dose optimization techniques were used for this CT. COMPARISON: None. FINDINGS: The visualized lung bases are unremarkable. The visualized portions of the heart are within normal limits. Normal liver. Normal gallbladder and extrahepatic biliary system. Borderline splenomegaly Normal pancreas. Normal bilateral adrenal glands. There are 2 tiny nonobstructing renal calculi on the right and one in the left. No evidence for renal obstruction or ureteral calculus Normal visualized stomach. Normal small intestine. Normal colon. The appendix is visualized and appears normal. Normal abdominal aorta. Normal inferior vena cava. Normal retroperitoneum. Incompletely distended mildly thick walled bladder likely of no significance. IUD noted within the uterine canal in satisfactory position. Small left ovarian cyst is noted Normal abdominal wall. Normal osseous structures. CT/Abdomen/Pelvis without Cont IMPRESSION: Bilateral nephrolithiasis without evidence for renal obstruction or ureteral calculus No evidence for small bowel obstruction or other acute abnormality Electronically Signed: Brody Rodas MD at 19:25 EST Reading Location ID and State: [address] [place] [address] Tel , Service support , CC: Dr. 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, [address] CA,Total 8.7 mg/dL Normal 8.5-10.1 [facility] Comment on above: Performed By: #### L 100.0100, L500.2500 #### [facility] [address] [place], [address] Chloride [Moles/Vol] 105 mmol/L Normal 98-107 [facility] Comment on above: Performed By: #### L 100.0100, L500.2500 #### [facility] [address] [place], [address] CO2 [Moles/Vol] 28.0 mmol/L Normal 21.0-32.0 [facility] Comment on above: Performed By: #### L 100.0100, L500.2500 #### [facility] [address] [place], [address] Creatinine [Mass/Vol] 0.68 mg/dL Normal 0.55-1.02 [facility] Comment on above: Result Comment: The validity of the calculated GFR GFRAA in patients over 70 years has not been determined. Clinical correlation is essential. Performed By: #### L 100.0100, L500.2500 #### [facility] [address] [place], [address] ECRCL 128.73 ml/min Normal [facility] Comment on above: Performed By: #### L 100.0100, L500.2500 #### [facility] [address] [place], [address] EST GFR - AA 132 mL/min Normal >60 [facility] Comment on above: Result Comment: Afri can Tongan GFR Calc Performed By: #### L 100.0100, L500.2500 #### [facility] [address] [place], [address] GAP 3 Low 5-15 [facility] Comment on above: Performed By: #### L 100.0100, L500.2500 #### [facility] [address] [place], [address] GFR/1.73 sq M.predicted among non-blacks MDRD (S/P/Bld) [Vol rate/Area] 109 mL/min/{1.73_m2} Normal >60 [facility] Comment on above: Result Comment: Non- GFR Calc Performed By: #### L 100.0100, L500.2500 #### [facility] [address] [place], [address] Glucose [Mass/Vol] 92 mg/dL Normal 74-106 [facility] Comment on above: Performed By: #### L 100.0100, L500.2500 #### [facility] [address] [place], [address] Potassium [Moles/Vol] 3.7 mmol/L Normal 3.5-5.1 [facility] Comment on above: Performed By: #### L 100.0100, L500.2500 #### [facility] [address] [place], [address] Sodium [Moles/Vol] 136 mmol/L Normal 136-145 [facility] Comment on above: Performed By: #### L 100.0100, L500.2500 #### [facility] [address] [place], [address] Urea nitrogen [Mass/Vol] 13 mg/dL Normal 7-18 [facility] Comment on above: Performed By: #### L 100.0100, L500.2500 #### [facility] [address] [place], [address] CBC W/Diff, Automatedon 12-2 0-2024 Absolute Lymph 0.90 X10 3/uL Normal 0.83-4.51 [facility] Comment on above: Performed By: #### L 100.0100, L500.2500 #### [facility] [address] [place], [address] Absolute Neut 5.1 X10 3/uL Normal 2.0-7.7 [facility] Comment on above: Performed By: #### L 100.0100, L500.2500 #### [facility] [address] [place], [address] Basophils/100 WBC (Bld) 0.7 % Normal 0-1 [facility] Comment on above: Performed By: #### L 100.0100, L500.2500 #### [facility] [address] [place], [address] Eosinophils/100 WBC (Bld) 0.3 % Normal 0-5 [facility] Comment on above: Performed By: #### L 100.0100, L500.2500 #### [facility] [address] [place], [address] Erythrocyte distribution width (RBC) [Ratio] 12.5 % Normal 11.6-14.6 [facility] Comment on above: Performed By: #### L 100.0100, L500.2500 #### [facility] [address] [place], [address] Hematocrit (Bld) [Volume fraction] 37.3 % Normal 37-47 [facility] Comment on above: Performed By: #### L 100.0100, L500.2500 #### [facility] [address] [place], [address] Hemoglobin (Bld) [Mass/Vol] 12.8 g/dL Normal 12.0-15.0 [facility] Comment on above: Performed By: #### L 100.0100, L500.2500 #### [facility] [address] [place], [address] IG% 2.800 High 0.0-0.9 [facility] Comment on above: Result Comment: IG% - Immature Granulocytes (promyelocytes, myelocytes and metamyelocytes) > 1% indicates that a LEFT SHIFT is Present. Performed By: #### L 100.0100, L500.2500 #### [facility] [address] [place], [address] Lymphocytes/100 WBC (Bld) 13.3 % Low 19-41 [facility] Comment on above: Performed By: #### L 100.0100, L500.2500 #### [facility] [address] [place], [address] MCH (RBC) [Entitic mass] 30.0 pg Normal 27.0-32.0 [facility] Comment on above: Performed By: #### L 100.0100, L500.2500 #### [facility] [address] [place], [address] MCHC (RBC) [Mass/Vol] 34.3 g/dL Normal 32-36 [facility] Comment on above: Performed By: #### L 100.0100, L500.2500 #### [facility] [address] [place], [address] MCV (RBC) [Entitic vol] 87.6 fL Normal 81-99 [facility] Comment on above: Performed By: #### L 100.0100, L500.2500 #### [facility] [address] [place], [address] Monocytes/100 WBC (Bld) 7.1 % Normal 0-10 [facility] Comment on above: Performed By: #### L 100.0100, L500.2500 #### [facility] [address] [place], [address] Neutrophils/100 WBC (Bld) 75.8 % High 47-70 [facility] Comment on above: Performed By: #### L 100.0100, L500.2500 #### [facility] [address] [place], [address] Nucleated RBC (Bld) [#/Vol] 0 10*3/uL Normal 0-5 [facility] Comment on above: Performed By: #### L 100.0100, L500.2500 #### [facility] [address] [place], [address] Platelet mean volume (Bld) [Entitic vol] 10.7 fL Normal 6.2-12.0 [facility] Comment on above: Performed By: #### L 100.0100, L500.2500 #### [facility] [address] [place], [address] Platelets (Bld) [#/Vol] 128 10*3/uL Low 150-450 [facility] Comment on above: Performed By: #### L 100.0100, L500.2500 #### [facility] [address] [place], [address] RBC (Bld) [#/Vol] 4.26 10*6/uL Normal 4.2-5.4 [facility] Comment on above: Performed By: #### L 100.0100, L500.2500 #### [facility] [address] [place], [address] RDW SD 39.7 fl Normal 35.1-43.9 [facility] Comment on above: Performed By: #### L 100.0100, L500.2500 #### [facility] [address] [place], [address] WBC (Bld) [#/Vol] 6.8 10*3/uL Normal 4.4-11.0 [facility] Comment on above: Performed By: #### L 100.0100, L500.2500 #### [facility] [address] [place], [address] Emergency Department Summary on 11-19-2024 Emergency Department Summary [facility] Medical Records Department [address] [place] [address] Emergency Department Summary 11/19/24 MR#: [id number] Acct: [id number] Name: CHEO WOODSON ANN Rep #: [id number] : 1995 29 From: Jean-Paul Preston DO PCP: Care Physician,No Primary Status:DEP ER Location: ED HPI History of Present Illness Chief Complaint: Other, Pain/Inj Informant: patient Onset/Context/Timing Onset: Weeks (1) Context: Gradual Onset Timing: Continuous Quality: Pressure Location: Frontal Worsened by: Bending forward Relieved by: Nothing Narrative Narrative: Patient presents with headache and left flank pain. Patient states her headache has been getting worse over the last week. Patient states her flank pain has been getting worse over the past few days. Patient states her pain is gradually getting worse. Patient describes it as a pressure over the frontal area. Patient states it radiates into her back. Patient states it is worse when she bends forward. Patient describes her left flank pain as aching. Patient states nothing makes it worse and nothing makes it better. Patient admits to some subjective chills. Patient admits to some shortness of breath. Patient denies any dysuria or hematuria. Patient denies any nausea or vomiting. PFSH PFS Medical History MDD (major depressive disorder) IZABELA (generalized anxiety disorder) Right wrist injury Family history of hearing loss at age younger than 7 years Depression Anxiety Home Medications ???Medication ???Instructions ???Recorded ???Last Taken ???Type levonorgestrel (Mirena) 1 device intrauterine ONCE 04/08/23 Unknown History hydroxyzine HCl 10 mg tablet 10 mg PO TID PRN anxiety #90 tabs 08/23/24 Unknown Rx fluoxetine 40 mg capsule 40 mg PO DAILY #30 caps 10/25/24 Unknown Rx sulfamethoxazole 800 1 tab PO BID #6 TABLETS 11/19/24 Unknown Rx mg-trimethoprim 160 mg tablet Allergy/AdvReac Type Severity Reaction Status Date / Time latex Allergy Mild Rash Verified 11/19/24 17:12 Surgical History Vassar teeth extracted Social History Smoking Status: Never smoker alcohol intake: never substance use type: does not use ROS ROS ED Constitutional Constitutional ED: Reports chills and subjective; Denies fever(s) Eyes Eyes: Denies blurry vision or change in vision ENT ENT ED: Denies rhinorrhea or sore throat Cardiovascular Cardiovascular: Denies chest pain or palpitations Respiratory/Chest Respiratory/Chest: Reports dyspnea; Denies cough Gastrointestinal Gastrointestinal: Denies nausea or vomiting Genitourinary Genitourinary ED: Denies dysuria or hematuria Musculoskeletal Musculoskeletal: Reports neck pain; Denies back pain Integumentary Denies abscess or rash Neurologic Neurologic: Reports headache(s); Denies weakness Allergic/Immunologic Allergic/Immunologic ED: Denies mouth swelling or urticaria EXAM Physical Exam Const Vital Signs: 11/19/24 17:12 11/19/24 17:39 Temperature 98.2 F Temperature Source Oral Pulse Rate 97 Respiratory Rate 18 Respiratory Pattern Normal Blood Pressure 118/82 H Blood Pressure Mean 94 Pulse Ox 100 Oxygen Delivery Method Room Air Positive well nourished and well developed General Appearance ED: well developed and NAD HEENT Reports TM's clear and moist mucous membranes HEENT Narrative: There is mild tenderness over the right frontal sinus. Oropharynx is clear. Airway is patent. Neck is supple. Tympanic Membrane ED: Yes TM's clear bilateral Neck no lymphadenopathy, supple and no JVD Resp normal respiratory effort and clear to auscultation bilaterally Cardio regular rate and regular rhythm GI non-tender and non-distended Palpation: soft Back/Spine General Back: CVA tenderness left Extremity normal to inspection Neuro oriented x3, CN's II-XII intact bilaterally and no sensory deficits noted Sensorium / Orientation: alert Motor Exam: strength 5/5 throughout Psych mental status grossly normal MDM MDM MDM Narrative Medical decision making narrative: Differential diagnosis includes migraine headache, tension headache, sinusitis, ureteral calculus, pyelonephritis, urinary tract infection, and viral illness. CBC will be obtained to assess for leukocytosis and anemia. Basic metabolic profile will be obtained to assess for electrolyte abnormality and renal function. Urinalysis will be obtained to assess for urinary tract infection and hematuria. CT scan of the abdomen and pelvis will be obtained to assess for ureteral calculus and pyelonephritis. Lab Data Attestation: I reviewed the patient's lab results. (more content not included)... Normal [facility] Urinalysis, Completeon 11-19 BACTERIA 3+ /hpf Normal None Seen [facility] Comment on above: Order Comment: CLEAN CATCH Performed By: #### L [id number] #### [facility] [address] [place], [place], [id number] EPI,SQUAMOUS 0-5 SEEN Normal 5-10 [facility] Comment on above: Order Comment: CLEAN CATCH Performed By: #### L [id number] #### [facility] [address] [place], [address] Mucus Ql (Urine sed) 1+ /hpf Normal [facility] Comment on above: Order Comment: CLEAN CATCH Performed By: #### L [id number] #### [facility] [address] [place], [address] RBC 0-5 SEEN Normal 0-5 [facility] Comment on above: Order Comment: CLEAN CATCH Performed By: #### L [id number] #### [facility] [address] [place], [address] WBC 10-25 SEEN Normal 0-5 [facility] Comment on above: Order Comment: CLEAN CATCH Performed By: #### L [id number] #### [facility] [address] [place], [address] MR/BMS.BPon 10-25-2024 MR/BMS.[address], [address] [place] [address] OFFICE VISIT Date of Service: 10/25/24 MR#: [id number] Acct: [id number] Name: CHEO WOODSON Rep #: [id number] : 1995 Provider: Dr. Darius Sood See se, DO Age/Sex: 29/F Location: [facility].BP Status: Signed Intake Vital Signs 08/23/24 14:31 10/25/24 15:59 Height 5 ft 4 in 5 ft 4 in BP 107/64 Blood Pressure Location Rt brachial Position Sitting Respiration 16 Pulse 68 Pulse Source Monitor BP Intake Visit Reasons: 2 M FU Accompanied by: Self Allergies latex Allergy (Mild, Verified 10/25/24 16:05) Rash Medications ???Medication ???Instructions ???Recorded ???Confirmed ???Type levonorgestrel (Mirena) 1 device intrauterine ONCE 04/08/23 10/25/24 History hydroxyzine HCl 10 mg tablet 10 mg PO TID PRN anxiety #90 tabs 08/23/24 10/25/24 Rx fluoxetine 40 mg capsule 40 mg PO DAILY #30 caps 10/25/24 10/25/24 Rx PFSH Medical History MDD (major depressive disorder) IZABELA (generalized anxiety disorder) Right wrist injury Family history of hearing loss at age younger than 7 years Depression Anxiety Surgical History Vassar teeth extracted Social History Smoking Status: Never smoker alcohol intake: never substance use type: does not use HPI History of Present Illness History provided by: patient HPI: Cheo Woodson is a 29 year old female who presents today for follow up evaluation. Patient reports that she has been "alright." Has had a reduction in number of panic attacks she has been having, but does still have intermittent anxiety nearly every day. Does feel like it is somewhat more manageable. Feels like prozac has been helpful to some extent. Still rates anxiety as an 8/10 when it gets bad. Denies any side effects from fluoxetine. Has not utilized any hydroxyzine to this point. Has stopped following with [facility] Plum[facility] as she doesn't find it beneficial anymore. Denies SI/HI or AVH. Sleep has been somewhat better in recent past. Does feel like she has been somewhat too tired throughout the day. 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 Does feel like part of her motivation is related to her current job. Review of Systems Constitutional Reports: fatigue; Denies: fever(s), chills or change in weight Eyes Denies: change in vision or blurry vision Ears, Nose, Mouth, Throat Denies: throat pain, neck pain, change in hearing or nasal congestion Cardiovascular Denies: chest pain, palpitations or dyspnea Respiratory Denies: dyspnea, cough or wheezing Gastrointestinal Denies: abdominal pain, nausea, vomiting, diarrhea or constipation Genitourinary Denies: dysuria or urinary frequency Musculoskeletal Denies: back pain, neck pain, joint pain or muscle weakness Integumentary/Breast Denies: rash or new lesions Neurological Reports: headache(s) and dizziness; Denies: confusion Endocrine Reports: fatigue; Denies: excessive sweating Hematologic/Lymphatic Denies: easy bruising or easy bleeding Allergic/Immunologic Denies: wheezing Exam Mental Status Exam - Psych Appearance casually dressed and adequately groomed Attitude cooperative and pleasant Activity/Motor Behavior MSE activity/motor behavior finding no adventitious movements Speech regular rate, regular volume and regular prosody Mood anxious Affect full range Thought Process linear, logical and coherent Thought Content no delusions and no hallucinations Suicidal Ideation none Homicidal Ideation none Attention intact Concentration intact Sensorium/Orientation awake, alert and oriented x3 Memory/Cognition other (appropriate for stated age) Insight good Judgement good Assessment Plan Assessment Plan (1) MDD (major depressive disorder): Plan: - See below (2) IZABELA (generalized anxiety disorder): Plan: - Continue prozac at 40 mg every day, will allow life changes like ideally a new job occur before additional med changes - encouraged to utilize hydroxyzine which I think will help with daily anxiety Medications: Refilled fluoxetine 40 mg PO DAILY 30 caps 2RF F32.9 - Major depressive disorder, single episode, unspecified, F41.1 - Generalized anxiety disorder 10/26/24 0640 Date Darius Peterson DO [facility] Signature: Date (if applicable) CC: Normal [facility] UA DIP, URINE (POC)on 2023 BILIRUBIN UA (POCT) Negative Negative [facility] CLARITY UA (POCT) Cloudy [facility] COLOR UA (POCT) Dark yellow [facility] GLUCOSE UA (POCT) Negative Negative mg/dL [facility] Hemoglobin Ql (U) Moderate Abnormal Negative [facility] Interpretation and review of laboratory results Abnormal [facility] KETONE UA (POCT) Negative Negative mg/dL [facility] LEUKOCYTES UA (POCT) Negative Negative [facility] NITRITE UA (POCT) Negative Negative [facility] PH UA (POCT) 6.5 4.5 - 8.0 [facility] Protein Ql (U) Negative Negative mg/dL [facility] SPECIFIC GRAVITY UA (POCT) >=1.030 1.005 - 1.030 [facility] UROBILINOGEN UA (POCT) 1.0 Normal E.U./dL [facility] Location:[facility], [address], [place], [address] [facility] POINT OF CARE [facility] UA DIP,URINE HCG (POC)on Beta HCG ( test) Ql (U) Negative Negative [facility] Comment on above: Location:[facility], [address], [place], [address] Put In Beat Adjuster (POCT) Internal QC OK [facility] Location:[facility], [address], [place], [address] [facility] POINT OF CARE [facility] BASIC METABOLIC PANELon 05-01 Anion gap [Moles/Vol] 12 mmol/L Normal 10 - 20 [facility] Comment on above: Performed By: #### B MP #### [address] [address] Calcium [Mass/Vol] 9.1 mg/dL Normal 8.6 - 10.3 [facility] Comment on above: Performed By: #### B MP #### [address] [address] Chloride [Moles/Vol] 104 mmol/L Normal 98 - 107 [facility] Comment on above: Performed By: #### B MP #### [address] [address] Creatinine [Mass/Vol] 0.76 mg/dL Normal 0.50 - 1.05 [facility] Comment on above: Performed By: #### B MP #### [address] [address] eGFR FEMALE >90 Normal >90 [facility] Comment on above: Result Comment: CALC ULATIONS OF ESTIMATED GFR ARE PERFORMED USING THE 2020 CKD-EPI STUDY REFIT EQUATION WITHOUT THE RACE VARIABLE FOR THE IDMS-TRACEABLE CREATININE METHODS. https://jasn.asnjournals.org/content//ASN.13663353 88 Performed By: #### B MP #### [address] [address] Glucose [Mass/Vol] 78 mg/dL Normal 74 - 99 [facility] Comment on above: Performed By: #### B MP #### [address] [address] HCO3 (Bld) [Moles/Vol] 28 mmol/L Normal 21 - 32 [facility] Comment on above: Performed By: #### B MP #### [address] [address] Potassium [Moles/Vol] 3.8 mmol/L Normal 3.5 - 5.3 [facility] Comment on above: Performed By: #### B MP #### [place] [id number] Sodium [Moles/Vol] 140 mmol/L Normal 136 - 145 [facility] Comment on above: Performed By: #### B MP #### [place] [id number] Urea nitrogen [Mass/Vol] 13 mg/dL Normal 6 - 23 [facility] Comment on above: Performed By: #### B MP #### [place] [id number] CBC AND DIFFERENTIALon 05-19 % AUTOMATED IMMATURE GRAN 0.2 % Normal 0.0 - 0.9 [facility] Comment on above: Result Comment: Jesenia ture Granulocyte Count (IG) includes promyelocytes, myelocytes and metamyelocytes but does not include bands. Percent differential counts (%) should be interpreted in the context of the absolute cell counts (cells/L). Performed By: #### C BCDF ####[place] [id number] Basophils (Bld) [#/Vol] 0.03 10*3/uL Normal 0.00 - 0.10 [facility] Comment on above: Performed By: #### C BCDF ####[address] [address] Basophils/100 WBC (Bld) 0.4 % Normal 0.0 - 2.0 [facility] Comment on above: Performed By: #### C BCDF ####[address] [address] Eosinophils (Bld) [#/Vol] 0.04 10*3/uL Normal 0.00 - 0.70 [facility] Comment on above: Performed By: #### C BCDF ####[address] [address] Eosinophils/100 WBC (Bld) 0.5 % Normal 0.0 - 6.0 [facility] Comment on above: Performed By: #### C BCDF ####[address] [address] Erythrocyte distribution width (RBC) [Ratio] 12.5 % Normal 11.5 - 14.5 [facility] Comment on above: Performed By: #### C BCDF ####[address] [address] Hematocrit (Bld) [Volume fraction] 41.3 % Normal 36.0 - 46.0 [facility] Comment on above: Performed By: #### C BCDF ####[address] [address] Hemoglobin (Bld) [Mass/Vol] 13.8 g/dL Normal 12.0 - 16.0 [facility] Comment on above: Performed By: #### C BCDF ####[address] [address] Lymphocytes (Bld) [#/Vol] 1.60 10*3/uL Normal 1.20 - 4.80 [facility] Comment on above: Performed By: #### C BCDF ####[address] [address] Lymphocytes/100 WBC (Bld) 19.5 % Normal 13.0 - 44.0 [facility] Comment on above: Performed By: #### C BCDF ####[address] [address] MCHC (RBC) [Mass/Vol] 33.4 g/dL Normal 32.0 - 36.0 [facility] Comment on above: Performed By: #### C BCDF ####[address] [address] MCV (RBC) [Entitic vol] 88 fL Normal 80 - 100 [facility] Comment on above: Performed By: #### C BCDF ####[address] [address] Monocytes (Bld) [#/Vol] 0.38 10*3/uL Normal 0.10 - 1.00 [facility] Comment on above: Performed By: #### C BCDF ####[address] [address] Monocytes/100 WBC (Bld) 4.6 % Normal 2.0 - 10.0 [facility] Comment on above: Performed By: #### C BCDF ####[address] [address] Neutrophils (Bld) [#/Vol] 6.15 10*3/uL Normal 1.20 - 7.70 [facility] Comment on above: Result Comment: Perc ent differential counts (%) should be interpreted in the context of the absolute cell counts (cells/L). Performed By: #### C BCDF ####[address] [address] Neutrophils/100 WBC (Bld) 74.8 % Normal 40.0 - 80.0 [facility] Comment on above: Performed By: #### C BCDF ####[address] [address] Platelets (Bld) [#/Vol] 191 10*3/uL Normal 150 - 450 [facility] Comment on above: Performed By: #### C BCDF ####[address] [address] RBC 4.72 x10E12/L Normal 4.00 - 5.20 [facility] Comment on above: Performed By: #### C BCDF ####[address] [address] WBC (Bld) [#/Vol] 8.2 10*3/uL Normal 4.4 - 11.3 [facility] Comment on above: Performed By: #### C BCDF ####[address] [address] [address] HEAD WO CONTRASTon 2022 CT HEAD WO CONTRAST Patient Name: CHEO WOODSON STUDY: CT HEAD WO CONTRAST; 05/19/2023 4:01 pm INDICATION: ATAXIA . COMPARISON: None. ACCESSION NUMBER(S): [id number] ORDERING CLINICIAN: NATE CAMARENA TECHNIQUE: Unenhanced CT images of the head were obtained. FINDINGS: The ventricles, sulci and basal cisterns are within normal limits. The sexton-white differentiation is intact. There is no acute intracranial hemorrhage, mass effect or midline shift. No extraaxial fluid collection. No focal calvarial lesion. Visualized paranasal sinuses are clear. IMPRESSION: No acute intracranial hemorrhage or mass-effect. Electronically signed by: MARKIE DEJESUS MD Normal [facility] HCG,URINEon 05-19-2023 Beta HCG ( test) Ql (U) Negative Normal Negative [facility] Comment on above: Performed By: #### H CGU #### [place] [id number] HEPATIC FUNCTION PANELon Albumin [Mass/Vol] 4.1 g/dL Normal 3.4 - 5.0 [facility] Comment on above: Performed By: #### H EPFP #### [address] [address] ALP [Catalytic activity/Vol] 101 U/L Normal 33 - 110 [facility] Comment on above: Performed By: #### H EPFP #### [address] [address] ALT [Catalytic activity/Vol] 14 U/L Normal 7 - 45 [facility] Comment on above: Result Comment: Le ents treated with Sulfasalazine may generate falsely decreased results for ALT. Performed By: #### H EPFP #### [address] [address] AST [Catalytic activity/Vol] 14 U/L Normal 9 - 39 [facility] Comment on above: Performed By: #### H EPFP #### [address] [address] Bilirubin [Mass/Vol] 0.6 mg/dL Normal 0.0 - 1.2 [facility] Comment on above: Performed By: #### H EPFP #### [address] [address] Bilirubin.indirect [Mass/Vol] 0.1 mg/dL Normal 0.0 - 0.3 [facility] Comment on above: Performed By: #### H EPFP #### [address] [address] Protein [Mass/Vol] 7.1 g/dL Normal 6.4 - 8.2 [facility] Comment on above: Performed By: #### H EPFP #### [address] [address] LIPASEon 05-19-2023 Lipase [Catalytic activity/Vol] 26 U/L Normal 9 - 82 [facility] Comment on above: Result Comment: Shilpa puncture immediately after or during the administration of Metamizole may lead to falsely low results. Testing should be performed immediately prior to Metamizole dosing. R-tjryvk-t-benzoquinone imine (metabolite of Acetaminophen) will generate erroneously low results in samples for patients that have taken toxic doses of acetaminophen. Performed By: #### L IPAS #### [address] [address] PT/INRon 05-19-2023 PT Coag (PPP) [Time] 13.6 s High 9.8 - 13.4 [facility] Comment on above: Performed By: #### P TINR #### [address] [address] PT, INR 1.2 High 0.9 - 1.1 [facility] Comment on above: Performed By: #### P TINR #### [address] [address] Provider Note - ED v3on 05-01 Provider Note - ED v3 Provider Note: Results/Vital Signs: Pediatric Clinical Scoring (CASSIE) is no recent CASSIE charted on this account Chart Review: ED NOTES ED NOTES: CC=DIZZINESS HPI= is a 28-year-old female who developed an episode of dizziness last night she checked her blood pressure when this happened and it was as high as 1 50-1 67 systolic and then by 9:00 it resumed back to his normal state she had a slight headache with that episode she said the dizziness was somewhat more vertiginous although she felt somewhat lightheaded also she complains of a still of a mild headache and some dizziness with movement she denies any visual changes no weakness to arms or legs no nausea or vomiting otherwise she denies any chest pains or palpitations HISTORY OF PRESENTING ILLNESS CHEO is a 28 year old Female and was seen by me at 19-May-2023 14:07 for a chief complaint of dizziness (states last pm around 1800 she had sudden onset of dizziness, she checked her bp and it was elevated. c/o n/v after. today c/o nausea, h/a and dizziness. states approx 2 weeks ago she had a sinus and ear infection. alert and oriented)(1). Triage Information: Most recent Vital Sign Value Date Temp (F): 97.7 05-19-2023 13:58 Temp (C): 36.5 05-19-2023 13:58 Heart Rate (beats/min): 95 05-19-2023 13:58 Respirations (breaths/min): 16 05-19-2023 13:58 SpO2 (%): 96 05-19-2023 13:58 BP Systolic (mm Hg): 130 05-19-2023 13:58 BP Diastolic (mm Hg): 85 05-19-2023 13:58 PAST MEDICAL HISTORY ALLERGIES/INTOLERANCES: Allergy Allergen: NKDA Type: Reaction: Allergen: Latex Type: Latex Reaction: Rash HEALTH HISTORY: No documented data. OUTPATIENT MEDICATIONS: Home Medications Review Status for Reconciliation: Complete Med Status: Patient Currently Takes Medications Drug Name: Wellbutrin XL 150 mg/24 hours oral tablet, extended release Instructions: 1 tab(s) orally once a day SIGNIFICANT EVENTS: No documented data. REVIEW OF SYSTEMS CONSTITUTIONAL: POSITIVE for: malaise Negative for: chills and fever EYES: Negative for: vision changes ENMTEars: Negative for: pain Nose: Negative for: congestion and discharge Throat/Neck: Negative for: neck pain and neck stiffness CARDIOVASCULAR: Negative for: chest pain, irregular rhythm, palpitations and tachycardia RESPIRATORY: Negative for: cough and dyspnea GASTROINTESTINAL: Negative for: abdominal pain, nausea and vomiting; GENITOURINARY: Negative for: dysuria and hematuria; MUSCULOSKELETAL: Negative for: neck pain and stiffness INTEGUMENTARY: Negative for: rash NEUROLOGICAL: POSITIVE for: dizziness and headache; HEME/LYMPH: Negative for: anemia, easy bleeding and easy bruising All other systems reviewed and are negative PHYSICAL EXAM CONSTITUTIONAL: Well appearing, well nourished, awake, alert, oriented to person, place, time/situation and in no apparent distress. HENMT: Airway patent, ears with clear tympanic membranes bilaterally. Nasal mucosa clear. Mouth with normal mucosa. Throat has no vesicles, no oropharyngeal exudates and uvula is midline. Face with no lymph node enlargement. NECK With no nuchal rigidity or adenopathy EYES: Clear bilaterally, pupils equal, round and reactive to light. There is no nystagmus noted extraocular muscles are intact CARDIOVASCULAR: Normal rate, regular rhythm. Heart sounds S1, S2. No murmurs, rubs or gallops. PMI non-displaced. RESPIRATORY: Breath sounds clear and equal bilaterally. No dyspnea or tachypnea GASTROINTESTINAL: Abdomen soft, non-distended, no rebound, no guarding. Bowel sounds normal in all 4 quadrants. MUSCULOSKELETAL: Spine appears normal, range of motion is not limited, no muscle or joint tenderness. NEUROLOGICAL: Alert and oriented, no focal deficits, no motor or sensory deficits. CNerves II through XII motor sensory cerebellar function are all intact SKIN: Skin normal color for race, warm, dry and intact. No evidence of trauma.NO Rash was present PSYCHIATRIC: Alert and oriented to person, place, time/situation. normal mood and affect. No apparent risk to self or others. HEME/LYMPH: No adenopathy or splenomegaly. No cervical, supraclavicular or inguinal lymphadenopathy. CRITICAL CARE RESULTS: Recent Lab Results: I have reviewed these laboratory results: Hepatic Function Panel 19-May-2023 14:44:00 ResultValue Aspartate Transaminase, Serum 14 ALB 4.1 T Bili 0.6 Bilirubin, Serum Direct - Conjugated 0.1 ALKP 101 Alanine Aminotransferase, Serum 14 T Pro 7.1 Complete Blood Count + Differential 19-May-2023 14:44:00 ResultValue White Blood Cell Count 8.2 Red Blood Cell Count 4.72 HGB 13.8 HCT 41.3 MCV 88 MCHC 33.4 PLT 191 RDW-CV 12.5 Neutrophil % 74.8 Immature Granulocytes % 0.2 Lymphocyte % 19.5 Monocyte % 4.6 Eosinophil % 0.5 Basophil % 0.4 Neutrophil Count 6.15 Lymphocyte Count 1.60 Monocyte Count 0.38 Eosinophil Count 0.0 (more content not included)... Normal [facility] Risk Screen - Adult Emergenc yon 05-19-2023 Risk Screen - Adult Emergency Preferred Language: Preferred Language: Preferred Language for Discussing Health Care (patient/designee)Carine moulton Patient Preferred Pharmacy: Patient Preferred Pharmacy Statement: I have reviewed and updated the patient's preferred pharmacy selection for today's visit. Advanced Directives: Advance Directive/DNRno Family Violence Adult: Abuse Screen: Are you or have you been threatened or abused physically, emotionally, or sexually by anyoneno Learning Assessment (Patient): Learning Assessment (Patient): Patient is Able to be Assessed for Learningyes Factors Influencing Readiness to Learnn/a Factors that Impact Ability to Learnnone Devices/Methods Used to Communicatenone Learning Preferencesverbal instruction Cultural Considerationsnone Developmental Considerationsnone Hoahaoism Considerationsnone Other Learnersfamily Learning Assessment (Other Learner): Learning Assessment (Other Learner): Other learner availableyes... Learnerfamily Factors Influencing Readiness to Learnn/a Factors that Impact Ability to Learnnone Devices/Methods Used to Communicatenone Learning Preferencesverbal instruction Cultural Considerationsnone Developmental Considerationsnone Hoahaoism Considerationsnone Pressure Injury/TB/Substance: Pressure Injury: Do you have a coughno Smoking Statusnever smoker Alcohol Usedenies Drug Usedenies Admission Risk Screen: Significant IndicatorsComplete CAGE: CAGE: Is this an injured patient at a Trauma Center ([facility]): no Electronic Signatures: Letty Carlos (RN) (Signed 19-May-2023 14:06) Authored: Preferred Language, Patient Preferred Pharmacy, Advanced Directives, Family Violence Adult, Learning Assessment (Patient), Learning Assessment (Other Learner), Pressure Injury/TB/Substance, Pressure Injury, CAGE Last Updated: 19-May-2023 14:06 by Letty Carlos (RN) [facility] Triage - EDon 05-19-2023 Triage - ED Quick Triage: Are You no Have You Given In The Last 6 Weeksno Are You Currently Breastfeedingno Chart Review: PRIMARY ASSESSMENT ABCD Normal Findings: airway open and patent and alert and oriented ARRIVAL INFORMATION Means of Arrival: Ambulatory Mode of Arrival: private vehicle Arrival From: home Accompanied By: immediate family member Language: Spoken Language Preferred: Martiniquais Reading Language Preferred: Martiniquais Present on Arrival: Device Present on Arrival to ED: no CHIEF COMPLAINT CHEO WOODSON is a Female patient with a chief complaint of dizziness (states last pm around 1800 she had sudden onset of dizziness, she checked her bp and it was elevated. c/o n/v after. today c/o nausea, h/a and dizziness. states approx 2 weeks ago she had a sinus and ear infection. alert and oriented). Triage Date/Time: 19-May-2023 13:45 LEI: 3 Pain Rating (0-10): 6 = Moderate Pain location: head Vital Signs: Temperature: 97.7F ( 36.5C) taken temporal Blood Pressure: 130/85 Mean: Heart Rate: 95 Respiratory Rate: 16 Pulse Oximetry: 96% on room air, no respiratory support. Height: 5 feet 5.00 inches. 165.1 CM Weight: 215.1 pounds. Calculated 97.6 kg. (stated) Calculated BMI (kg/m2): 35.805 Calculated BSA (m2) 2.12 Ayla Coma Scale: Best Eye Response: (E4) spontaneous Best Motor Response: (M6) obeys commands Best Verbal Response: (V5) oriented Baden Score: 15 Allergies: yes Last menstrual period: 09-May-2023 Patient has homicidal thoughts: no Last Known Well: known Time Last Known Well Date/Time: 19-May-2023 Risk Screens Suicide Risk Screen In the Past Month: Have you wished you were or wished you could go to sleep and not wake up no In the Past Month: Have you had any actual thoughts of killing yourself no In Your Lifetime: Have you ever done anything, started to do anything, or prepared to do anything to end your life no Sosa Fall Scale Screening Has the patient fallen before (or is the patient in the ED as a result of a fall) has not had a fall Does the patient have an impaired gait does not have impaired gait Is the patient cognitively impaired not cognitively impaired Interventions: Sosa Fall Interventions: LOW INTERVENTIONS: *patient oriented to surroundings and call system, * patient/family falls education completed and documented, *patients fall status communicated during bedside handoff, *whiteboard updated, *mode of toileting discussed with patient, *bed in low position with brakes locked, *call light in reach, * non-skid footwear TRAVEL HISTORY Travel History Coronavirus Screening: no exposure or symptoms Travel Exposure History: NO travel to International locations in the past 30 days PAIN Pain Scale Used: ELLEN Pain Rating (0-10): 6 = Moderate Past Medical History: Past Medical History Reviewedyes Electronic Signatures: Letty Carlos (RN) (Signed 19-May-2023 14:05) Entered: Risk Screens, Pain, Arrival, ABCD, Travel History, Chart Review, Scores, Past Medical History Authored: Quick Triage, Risk Screens, Pain, Arrival, ABCD, Travel History, Chart Review, Scores, Past Medical History Last Updated: 19-May-2023 14:05 by Letty Carlos (RN) Normal [facility] UA MICROSCOPICon 05-19-2023 BACTERIA 1+ /HPF Abnormal [facility] Comment on above: Performed By: #### U AMIC #### [place] [address] Mucus Ql (Urine sed) 1+ /LPF Normal [facility] Comment on above: Performed By: #### U AMIC #### [place] [address] RBC 1 /HPF Normal 0-5 [facility] Comment on above: Performed By: #### U AMIC #### [place] [address] SQUAMOUS EPITH. CELLS 5 /HPF Normal [facility] Comment on above: Performed By: #### U AMIC #### [place] [address] WBC 4 /HPF Normal 0-5 [facility] Comment on above: Performed By: #### U AMIC #### [place] [address] URINALYSISon 05-19-2023 Appearance (U) HAZY Normal CLEAR [facility] Comment on above: Performed By: #### U A #### [place] [address] Bilirubin Ql (U) Negative Normal NEGATIVE [facility] Comment on above: Performed By: #### U A #### [place] [address] Color (U) Yellow Normal STRAW,YELLOW [facility] Comment on above: Performed By: #### U A #### [place] [address] Glucose Ql (U) Negative Normal NEGATIVE [facility] Comment on above: Performed By: #### U A #### [place] [address] Hemoglobin Ql (U) Negative Normal NEGATIVE [facility] Comment on above: Performed By: #### U A #### [place] [address] Ketones Ql (U) 5(TRACE) Abnormal NEGATIVE [facility] Comment on above: Performed By: #### U A #### [place] [address] Leukocyte esterase Test strip Ql (U) SMALL(1+) Abnormal NEGATIVE [facility] Comment on above: Performed By: #### U A #### [place] [address] Nitrite Ql (U) Negative Normal NEGATIVE [facility] Comment on above: Performed By: #### U A #### [place] [address] pH (U) 6.0 [pH] Normal 5.0 - 8.0 [facility] Comment on above: Performed By: #### U A #### [place] [address] Protein Ql (U) Negative Normal NEGATIVE [facility] Comment on above: Performed By: #### U A #### [place] [address] Specific gravity (U) [Rel density] 1.014 Normal 1.005 - 1.035 [facility] Comment on above: Performed By: #### U A #### [place] [address] Urobilinogen (U) [Mass/Vol] mg/dL Normal 0.0 - 1.9 [facility] Comment on above: Performed By: #### U A #### [facility] [address] [id number] Vital Signs Date Time Vital Sign Value Performing Clinician Owen booth 05-04-2025 18:11-0400 Body height 163 cm Ann-Marie Courtney CARE ASST.TELEPHONE LINES REPAIRER Work Phone: [facility] 05-04-2025 18:11-0400 Body mass index (BMI) [Ratio] 35.38 kg/m2 Ann-Marie Courtney CARE ASST.TELEPHONE LINES REPAIRER Work Phone: [facility] 05-04-2025 18:11-0400 Body weight 94 kg Ann-Marie Courtney CARE ASST.TELEPHONE LINES REPAIRER Work Phone: [facility] 05-04-2025 18:11-0400 Diastolic blood pressure 82 mm[Hg] Ann-Marie Courtney CARE ASST.TELEPHONE LINES REPAIRER Work Phone: [facility] 05-04-2025 18:11-0400 Heart rate 74 /min Ann-Marie PatrickCourtney CARE ASST.TELEPHONE LINES REPAIRER Work Phone: [facility] 05-04-2025 18:11-0400 Respiratory rate 12 /min Ann-Marie Courtney CARE ASST.TELEPHONE LINES REPAIRER Work Phone: [facility] 05-04-2025 18:11-0400 SaO2% (BldA) [Mass fraction] 99 % Ann-Marie PatrickCourtney CARE ASST.TELEPHONE LINES REPAIRER Work Phone: [facility] 05-04-2025 18:11-0400 Systolic blood pressure 124 mm[Hg] Ann-Marie Courtney CARE ASST.TELEPHONE LINES REPAIRER Work Phone: [facility] 08-09-2024 16:19-0400 Body mass index (BMI) [Ratio] 32.06 kg/m2 Loyda Peters CARE ASST.TELEPHONE LINES REPAIRER Work Phone: [facility] 08-09-2024 16:19-0400 Body temperature 98.4 [degF] Loyda Peters CARE ASST.TELEPHONE LINES REPAIRER Work Phone: [facility] 08-09-2024 16:19-0400 Body weight 85.7 kg Loyda Peters CARE ASST.TELEPHONE LINES REPAIRER Work Phone: [facility] 08-09-2024 16:19-0400 Diastolic blood pressure 84 mm[Hg] Loyda Peters CARE ASST.TELEPHONE LINES REPAIRER Work Phone: [facility] 08-09-2024 16:19-0400 Heart rate 70 /min Loyda Peters CARE ASST.TELEPHONE LINES REPAIRER Work Phone: [facility] 08-09-2024 16:19-0400 Respiratory rate 19 /min Loyda Peters CARE ASST.TELEPHONE LINES REPAIRER Work Phone: [facility] 08-09-2024 16:19-0400 SaO2% (BldA) [Mass fraction] 100 % Loyda Peters CARE ASST.TELEPHONE LINES REPAIRER Work Phone: [facility] 08-09-2024 16:19-0400 Systolic blood pressure 120 mm[Hg] Loyda Peters CARE ASST.TELEPHONE LINES REPAIRER Work Phone: [facility] 04-12-2024 15:56-0400 Body mass index (BMI) [Ratio] 32.47 kg/m2 Brody Pendlebury CARE ASST.TELEPHONE LINES REPAIRER Work Phone: [facility] 04-12-2024 15:56-0400 Body temperature 98.6 [degF] Brody Pendlebury CARE ASST.TELEPHONE LINES REPAIRER Work Phone: [facility] 04-12-2024 15:56-0400 Body weight 86.8 kg Brody Pendlebury CARE ASST.TELEPHONE LINES REPAIRER Work Phone: [facility] 04-12-2024 15:56-0400 Diastolic blood pressure 78 mm[Hg] Brody Pendlebury CARE ASST.TELEPHONE LINES REPAIRER Work Phone: [facility] 04-12-2024 15:56-0400 Heart rate 83 /min Brody Pendlebury CARE ASST.TELEPHONE LINES REPAIRER Work Phone: [facility] 04-12-2024 15:56-0400 Respiratory rate 18 /min Brody Pendlebury CARE ASST.TELEPHONE LINES REPAIRER Work Phone: [facility] 04-12-2024 15:56-0400 SaO2% (BldA) [Mass fraction] 98 % Brody Nunezjoaquin CARE ASST.TELEPHONE LINES REPAIRER Work Phone: [facility] 04-12-2024 15:56-0400 Systolic blood pressure 110 mm[Hg] Brody Darshana CARE ASST.TELEPHONE LINES REPAIRER Work Phone: [facility] 05-22-2023 09:17-0400 Body height 165.1 cm Freddie Newbill PA-C Work Phone: [facility] 05-22-2023 09:17-0400 Body mass index (BMI) [Ratio] 35.05 kg/m2 Freddie Newbill PA-C Work Phone: [facility] 05-22-2023 09:17-0400 Body temperature 97.5 [degF] Freddie Newbill PA-C Work Phone: [facility] 05-22-2023 09:17-0400 Body weight 95.53 kg Freddie Newbill PA-C Work Phone: [facility] 05-22-2023 09:17-0400 Diastolic blood pressure 78 mm[Hg] Freddie Newbill PA-C Work Phone: [facility] 05-22-2023 09:17-0400 Heart rate 84 /min Freddie Newbill PA-C Work Phone: [facility] 05-22-2023 09:17-0400 SaO2% (BldA) [Mass fraction] 99 % Freddie Newbill PA-C Work Phone: [facility] 05-22-2023 09:17-0400 Systolic blood pressure 118 mm[Hg] Freddie Newbill PA-C Work Phone: [facility] 05-19-2023 18:03-0400 Diastolic blood pressure 74 mm[Hg] No Pcp Required [facility] 05-19-2023 18:03-0400 Heart rate 77 /min No Pcp Required [facility] 05-19-2023 18:03-0400 SaO2% (BldA) [Mass fraction] 99 % No Pcp Required [facility] 05-19-2023 18:03-0400 Systolic blood pressure 121 mm[Hg] No Pcp Required [facility] 05-19-2023 15:58-0400 Body height 165.1 cm No Pcp Required [facility] 05-19-2023 15:58-0400 Body temperature 97.7 [degF] No Pcp Required [facility] 05-19-2023 15:58-0400 Body weight 97.6 kg No Pcp Required [facility] 05-19-2023 15:58-0400 Respiratory rate 16 /min No Pcp Required [facility] 04-30-2023 17:18-0400 Body temperature 98.6 [degF] Loyda Peters CARE ASST.TELEPHONE LINES REPAIRER Work Phone: [facility] 04-30-2023 17:18-0400 Body weight 97.43 kg Loyda Peters CARE ASST.TELEPHONE LINES REPAIRER Work Phone: [facility] 04-30-2023 17:18-0400 Diastolic blood pressure 82 mm[Hg] Loyda Peters CARE ASST.TELEPHONE LINES REPAIRER Work Phone: [facility] 04-30-2023 17:18-0400 Heart rate 97 /min Loyda Peters CARE ASST.TELEPHONE LINES REPAIRER Work Phone: [facility] 04-30-2023 17:18-0400 Respiratory rate 18 /min Loyda Peters CARE ASST.TELEPHONE LINES REPAIRER Work Phone: [facility] 04-30-2023 17:18-0400 SaO2% (BldA) [Mass fraction] 99 % Loyda Peters CARE ASST.TELEPHONE LINES REPAIRER Work Phone: [facility] 04-30-2023 17:18-0400 Systolic blood pressure 124 mm[Hg] Loyda Peters CARE ASST.TELEPHONE LINES REPAIRER Work Phone: [facility] 12-16-2022 14:27-0500 Body height 163.5 cm Ann-Marie Older CARE ASST.TELEPHONE LINES REPAIRER Work Phone: [facility] 12-16-2022 14:27-0500 Body weight 97.52 kg Ann-Marie Older CARE ASST.TELEPHONE LINES REPAIRER Work Phone: [facility] 12-16-2022 14:27-0500 Diastolic blood pressure 85 mm[Hg] Ann-Marie Older CARE ASST.TELEPHONE LINES REPAIRER Work Phone: [facility] 12-16-2022 14:27-0500 Heart rate 80 /min Ann-Marie Older CARE ASST.TELEPHONE LINES REPAIRER Work Phone: [facility] 12-16-2022 14:27-0500 Respiratory rate 16 /min Ann-Marie Older CARE ASST.TELEPHONE LINES REPAIRER Work Phone: [facility] 12-16-2022 14:27-0500 Systolic blood pressure 123 mm[Hg] Ann-Marie Older CARE ASST.TELEPHONE LINES REPAIRER Work Phone: [facility] 03-27-2022 15:57-0400 Body weight 90.27 kg Jimena Plotts CARE ASST.CNM Work Phone: [facility] 03-27-2022 15:57-0400 Diastolic blood pressure 70 mm[Hg] Jimena Plotts CARE ASST.CNM Work Phone: [facility] 03-27-2022 15:57-0400 Systolic blood pressure 110 mm[Hg] Jimena Plotts CARE ASST.CNM Work Phone: [facility] Encounters Encounter Date Encounter Type Care Provider Facility Start: 09-08-2025 ambulatory Darius Peterson Facility :[facility] Start: 09-05-2025 End: 09-05-2025 ambulatory ALPHONSO BUENO Facility:[facility] Start: 08-23-2025 ambulatory No Primary Car e Physician Facility:[facility] Start: 08-15-2025 End: 08-15-2025 Telephone encounter Alphonso Bueno MD Work Phone: [address] [place] [address] Comment on above: Orders Start: 06-29-2025 End: 06-29-2025 ambulatory No Primary Care Physician Facility:[facility] Start: 06-16-2025 ambulatory No Primary Car e Physician Facility:[facility] Start: 05-04-2025 End: 05-04-2025 Office outpatient visit 25 minutes Ann-Marie Valdez CARE ASST.TELEPHONE LINES REPAIRER Work Phone: [facility] [place] Comment on above: Frequent headaches ( Primary Dx); Weight gain; Easy bruising; Recurrent major depressive disorder, remission status unspecified; Generalized anxiety disorder; Cervical cancer screening Start: 05-04-2025 End: 05-04-2025 ambulatory ANN-MARIE VALDEZ Facility:[facility] Start: 04-30-2025 End: 04-30-2025 ambulatory JACK XIMENA Facility:[facility] Start: 03-21-2025 End: 03-21-2025 ambulatory No Primary Care Physician Facility:[facility] Start: 01-24-2025 End: 01-24-2025 ambulatory No Primary Care Physician Facility:[facility] Start: 11-19-2024 End: 11-19-2024 Emergency department patient visit No Primary Care Physician Facility:[facility] Start: 10-25-2024 End: 10-25-2024 ambulatory Darius Peterson Facility:[facility] Start: 08-12-2024 End: 08-12-2024 Telephone encounter Brody Gilliland APRN.TELEPHONE LINES REPAIRER Work Phone: [facility] Comment on above: Results Start: 08-09-2024 End: 08-09-2024 Patient encounter procedure Loyda Peters CARE ASST.TELEPHONE LINES REPAIRER Work Phone: [facility] Comment on above: Lower abdominal pain (Primary Dx); Acute right flank pain Start: 04-12-2024 End: 04-12-2024 Office outpatient visit 15 minutes Brody Gilliland APRN.TELEPHONE LINES REPAIRER Work Phone: [facility] Comment on above: Acute right-sided lo w back pain, unspecified whether sciatica present (Primary Dx) Start: 05-22-2023 End: 05-22-2023 ambulatory [facility] Amb[facility] Start: 05-22-2023 End: 05-22-2023 Office outpatient new 45 minutes [facility] MARIAH Work Phone: [facility] Comment on above: Anxiety and depressi on (Primary Dx); Acute intractable headache, unspecified headache type; Bilateral serous otitis media, unspecified chronicity; Benign paroxysmal positional vertigo, unspecified laterality Start: 05-19-2023 End: 05-19-2023 Emergency department patient visit Nate Camarena [facility] Emergency 04 Start: 04-30-2023 End: 04-30-2023 Patient encounter procedure Loyda Peters CARE ASST.TELEPHONE LINES REPAIRER Work Phone: [place] [facility] Comment on above: Rhinosinusitis (Prim sosa Dx); Left otitis media, unspecified otitis media type Start: 12-18-2022 ambulatory Ann-Marie Older CARE ASST .TELEPHONE LINES REPAIRER Work Phone: [facility] [place] Comment on above: lab results Start: 12-18-2022 E-mail encounter fro m caregiver Ann-Marie Older CARE ASST.TELEPHONE LINES REPAIRER Work Phone: [facility] Start: 12-16-2022 End: 12-16-2022 Patient encounter procedure Ann-Marie Older CARE ASST.TELEPHONE LINES REPAIRER Work Phone: [facility] [place] Comment on above: Wellness examination (Primary Dx); Fatigue, unspecified type; Weight gain; Depression with anxiety; Obesity, Class II, BMI 35-39.9 Start: 12-16-2022 End: 12-16-2022 Patient encounter status Ann-Marie Older CARE ASST.TELEPHONE LINES REPAIRER Work Phone: [facility] [place] Start: 11-04-2022 E-mail encounter fro m caregiver [facility] Start: 11-04-2022 Patient encounter procedure [facility] Provider [facility] [place] Comment on above: Appointment Start: 03-27-2022 End: 03-27-2022 Patient encounter procedure Jimena Quitastephen CARE ASST.CNM Work Phone: OB/Gynecology Comment on above: Encounter for survei llance of other contraceptive (Primary Dx) Start: 04-26-2021 End: 01-22-2022 Patient requested procedure Brody Gilliland CARE ASST.TELEPHONE LINES REPAIRER Work Phone: [facility] Procedures Date Procedure Procedure Detail Performing Clinician Start: 08-09-2024 UA DIP,URINE HCG (POC) Loyda Peters APRN.TELEPHONE LINES REPAIRER Work Phone: Start: 08-09-2024 Urnls dip stick/tabl et rgnt auto w/o microscopy Loyda Peters APRN.TELEPHONE LINES REPAIRER Work Phone: Start: 05-19-2023 End: 05-19-2023 EKG impression Nate Camarena Plan of Treatment Date Care Activity Detail Author Start: 2046 Zoster Vaccines (1 of 2) Zoste r Vaccines (1 of 2) [facility] Start: 09-12-2031 DTaP/Tdap/Td Vaccine s (2 - Td or Tdap) DTaP/Tdap/Td Vaccines (2 - Td or Tdap) [facility] Start: 09-12-2031 Urine microalbumin profile [facility] Start: 05-04-2026 Covid-19 Vaccine ( season) Covid-19 Vaccine () [facility] Comment on above: Postponed from 08/01 (Declined at this time) Start: 08-01-2025 Influenza vaccination C [facility] Start: 05-04-2025 End: 08-03-2025 CBC panel - Blood by Automated count COMPLETE BLOOD COUNT Lab Routine Easy bruising Expected: 05/04/2025, Expires: 08/03/2025 [facility] Work Phone: Comment on above: Expected: 05/04/2025 , Expires: 08/03/2025 Start: 05-04-2025 End: 08-03-2025 Comprehensive metabolic 2000 panel - Serum or Plasma COMPREHENSIVE METABOLIC PANEL Lab Routine Weight gain Expected: 05/04/2025, Expires: 08/03/2025 [facility] Comment on above: Expected: 05/04/2025 , Expires: 08/03/2025 Start: 05-04-2025 End: 08-03-2025 Thyrotropin [Units/volume] in Serum or Plasma THYROID STIMULATING HORMONE Lab Routine Weight gain Expected: 05/04/2025, Expires: 08/03/2025 [facility] Comment on above: Expected: 05/04/2025 , Expires: 08/03/2025 Start: 08-09-2024 End: 11-08-2024 CBC W Auto Differential panel - Blood [facility] Work Phone: Comment on above: Expected: 08/09/2024 , Expires: 11/08/2024 Start: 08-09-2024 End: 11-08-2024 Comprehensive metabolic 2000 panel - Serum or Plasma [facility] Comment on above: Expected: 08/09/2024 , Expires: 11/08/2024 Start: 08-01-2024 Covid-19 Vaccine ( season) Covid-19 Vaccine ( season) [facility] Start: 08-01-2024 Influenza vaccination C [facility] Start: 12-16-2023 COVID-19 VACCINE (#1) COVID-19 VACCI NE (#1) [facility] Comment on above: Postponed from 07/04 (Declined at this time) Start: 12-16-2023 HEPATITIS B (1 of 3 - 3-dose series) HEPATITIS B (1 of 3 - 3-dose series) [facility] Comment on above: Postponed from 01/04 (Declined at this time) Start: 08-01-2023 Covid-19 Vaccine ( season) Covid-19 Vaccine ( season) [facility] Start: 08-01-2023 Influenza vaccination C [facility] Start: 05-30-2023 Influenza vaccination INFLUENZA (#1) [facility] Comment on above: Postponed from 08/01 (Declined at this time) Start: 03-18-2023 End: 05-18-2023 25-hydroxyvitamin D3 [Mass/volume] in Serum or Plasma VITAMIN D 25 HYDROXY Lab Routine Vitamin D deficiency Expected: 03/18/2023 (Approximate), Expires: 05/18/2023 [facility] Work Phone: Comment on above: Expected: 03/18/2023 (Approximate), Expires: 05/18/2023 Start: 12-16-2022 End: 02-15-2023 25-hydroxyvitamin D3 [Mass/volume] in Serum or Plasma [facility] Work Phone: Comment on above: Expected: 12/16/2022 , Expires: 02/15/2023 Start: 12-16-2022 End: 02-15-2023 CBC W Auto Differential panel - Blood [facility] Work Phone: Comment on above: Expected: 12/16/2022 , Expires: 02/15/2023 Start: 12-16-2022 End: 02-15-2023 Comprehensive metabolic 2000 panel - Serum or Plasma [facility] Work Phone: Comment on above: Expected: 12/16/2022 , Expires: 02/15/2023 Start: 12-16-2022 End: 02-15-2023 Thyrotropin [Units/volume] in Serum or Plasma [facility] Work Phone: Comment on above: Expected: 12/16/2022 , Expires: 02/15/2023 Start: 11-25-2022 PAP TESTING PAP TESTING [facility] Start: 11-25-2022 Screening for malign ant neoplasm of cervix [facility] Start: 08-01-2022 Influenza vaccination INFLUENZ A (Season Ended) [facility] Start: 2017 Screening for malign ant neoplasm of cervix [facility] Start: 2015 Hepatitis B Vaccine (1 of 3 - 19+ 3-dose series) Hepatitis B Vaccine (1 of 3 - 19+ 3-dose series) [facility] Start: 2014 Hepatitis C screening Hepatitis C [facility] Start: 2010 PEDS TO ADULT TRANSI TION ANNUAL ASSESSMENT PEDS TO ADULT TRANSITION ANNUAL ASSESSMENT [facility] Start: 06-08-2008 HPV Vaccines (3 - 2- dose series) HPV Vaccines (3 - 2-dose series) [facility] Start: 03-02-2008 Varicella vaccination Varicell a Vaccines (2 of 2 - 2-dose childhood series) [facility] Start: 01-06-2008 MMR Vaccines (1 of 1 - Standard series) MMR Vaccines (1 of 1 - Standard series) [facility] Start: 2008 Adult depression screening assessment DEPRESSION SCREENING [facility] Start: 2008 PEDS TO ADULT TRANSI TION INITIAL DISCUSSION PEDS TO ADULT TRANSITION INITIAL DISCUSSION [facility] Start: 2007 HPV VACCINE (1 - 2-d ose series) HPV VACCINE (1 - 2-dose series) [facility] Start: 2001 COVID-19 VACCINE (1) COVID-19 VACCIN E (1) [facility] Start: 1996 COVID-19 Vaccine (#1) COVID-19 Vacci ne (#1) [facility] Start: 1996 Hepatitis B Vaccines (1 of 3 - 3-dose series) Hepatitis B Vaccines (1 of 3 - 3-dose series) [facility] Start: 1996 HIV screening HIV Screening [facility] Start: 1996 Lipid panel Lipid Panel [facility] Start: 1996 Yearly Adult Physical Yearly Adult P [facility] Bacteria identified in Urine by Culture URINE CULTURE Microbiology Routine Lower abdominal pain Acute right flank pain Ordered: 08/09/2024 [facility] Comment on above: Ordered: 08/09/2024 Removal intrauterine device iud REMOVE INTRAUTERINE DEVICE Procedures Routine Encounter for IUD removal Ordered: 08/15/2025 [facility] Work Phone: Comment on above: Ordered: 08/15/2025 Immunizations Immunization Date Immunization Notes Care Provider Carlyle portillo 09-12-2021 tetanus toxoid, redu segundo diphtheria toxoid, and acellular pertussis vaccine, adsorbed Jimena Devlinstephen CARE ASST.CNM Work Phone: [facility] 09-17-2013 influenza virus vaccine, unspecified formulation Freddie Newbill PA-C Work Phone: [facility] Work Phone: 02-04-2008 human papilloma viru s vaccine, quadrivalent Ann-Marie Older CARE ASST.TELEPHONE LINES REPAIRER Work Phone: [facility] Work Phone: 02-04-2008 HPV, unspecified formulation Freddie Newbill PA-C Work Phone: [facility] Work Phone: 12-09-2007 human papilloma viru s vaccine, quadrivalent Ann-Marie Older CARE ASST.TELEPHONE LINES REPAIRER Work Phone: [facility] Work Phone: 12-09-2007 varicella virus vaccine Freddie Bolanos PA-C Work Phone: [facility] Work Phone: Payers Date Payer Category Payer Unknown [id number] 2024 Self-pay 2024 Private Health Insurance [id number] 2023 Private Health Insurance [employer] A ETNA POS [id number] 2023-Present [phone] [address] [place] [address] POS [id number] 2021 Unknown [employer] PPO [id number] 2021-Present [phone] [address] [place] [address] PPO [id number] 2021 Unknown [id number] 2021 Unknown [id number] 1996 Unknown [id number] 1996 Unknown [id number] Unknown [id number] Unknown [id number] .[id number] Unknown [id number] Unknown [id number] .[id number] Unknown [id number] .462 Unknown [id number] .462 Unknown [id number] .462 Unknown [id number] .[id number] Unknown [id number] Social History Date Type Detail Facility Start: 11-25-2019 End: 12-16-2022 Tobacco smoking status NHIS Never smoked tobacco [facility] Work Phone: Start: 11-25-2019 End: 12-16-2022 Tobacco use and exposure Smokeless tobacco non-user [facility] Work Phone: Start: 03-27-2022 End: 05-04-2025 Alcohol intake Lifetime non-drinker (finding) [facility] Start: 11-25-2019 History SDOH Alcohol Frequency 1 [facility] Start: 04-26-2021 Education 13 [facility] Start: 1995 Sex Assigned At Not on file [facility] Tobacco smoking consumption unknown [facility] Start: 05-22-2023 End: 09-16-2024 History of Social function [facility] Work Phone: Start: 05-22-2023 End: 09-16-2024 Tobacco use panel [facility] Work Phone: Start: 05-12-2023 End: 05-22-2023 Exposure to SARS-CoV-2 (event) Yes [facility] How often to you hav e a drink containing alcohol? Never [facility] Work Phone: Start: 06-19-2015 Average Number of Drinks Not on file [facility] Clinical Notes 09-27-2021 to 09-05-2025 Telephone Encounter - Shaylee Alvarez RN - 08/15/2025 4:51 PM EDTTelephone Encounter - Shaylee Alvarez RN - 08/15/2025 4:51 PM EDTTelephone Encounter - Yazmin Day - 08/15/2025 4:43 PM EDT Note Date & Type Note Facility 09-05-2025 Note HNO ID: [id number] Author: PATRICIA MORAN MD Service: ? Author Type: Physician Type: Progress Notes Filed: 09/05/2025 15:51 Note Text: Patient declined head of sales promotionMichelle Herrera presents for removal of IUD due to desire for . UNIVERSAL PROTOCOL / SAFETY CHECKLIST Procedure to be Performed: Removal Mirena Intrauterine Device. Sign In: A Moment of CARE was completed. Appropriate PPE (Personal Protective Equipment) worn by all providers involved with the procedure. Special equipment not required. Patient/Surrogate Stated/Verified: Patient name, Date of , Relevant allergies, and The intended procedure Time Out: Relevant labs, photos, and/or imaging studies have been reviewed. Intended patient and procedure match the source document(s) (e.g. consent, HANDP, associated studies [imaging, pathology]) match the intended patient and procedure. Consent obtained and matches the intended procedure. Yes. Correct side/site is not applicable. Medications required for this procedure are not applicable. Fire risk assessed and is not applicable. Implants: are not applicable. Sign Out: Specimens not collected. All instruments, equipment, possible retained foreign bodies are accounted for. Yes. The post-procedure plan of care has been communicated to the patient or surrogate. PROCEDURE: Speculum placed in vagina, IUD string visualized and grasped with ring forceps. ASSESSMENT/PLAN: IUD removed without difficulty, intact, and patient tolerated procedure well. Contraception plans: none Reviewed pre-conception guidelines including folic acid supplementation, optimal timing of intercourse, avoidance of smoking, alcohol, exposure to environmental chemicals and need for evaluation if not within 12 months. Patricia Moran MD [facility] 08-15-2025 Telephone encounter Note Please contact patient to schedule IUD removal. Shaylee Alvarez RN [facility] 08-15-2025 Miscellaneous Notes Please contact patient to schedule IUD removal. Shaylee Alvarez RN Order signed. Jimena Millan APRN.CNM Pt requesting order for Mirena removal. Please advise, Thank you documented in this encounter [facility] 08-15-2025 Telephone encounter Note Order signed. Jimena Millan APRN.CNM [facility] 08-15-2025 Telephone encounter Note Pt requesting order for Mirena removal. Please advise, Thank you [facility] 05-04-2025 Instructions Ann-Marie Valdez APRN.CNP - 05/04/2025 6:39 PM EDT We discussed your headaches: - Your headaches are consistent with migraines, given the light sensitivity, sound sensitivity, dizziness, and vision changes you described. - I prescribed Imitrex (sumatriptan) to take as needed for migraines. Take one tablet at the onset of a headache. If the headache persists after two hours, you may take a second tablet, but do not take more than two tablets in 24 hours. This prescription has been sent to your [facility] pharmacy. - If the Imitrex does not help, please contact your psychiatrist to discuss whether your headaches could be a side effect of your medication, particularly Abilify. We discussed your concerns about bruising: - Bruising on your legs and arms is likely not concerning, as these are common areas to bump into things. However, I will order blood work to check for anemia or other potential causes. We discussed your weight gain: - Weight gain is a common side effect of Abilify, which you are currently taking for depression. - I recommend discussing this with your psychiatrist to explore alternative medications or options to counteract the weight gain. - If your psychiatrist does not believe the weight gain is related to Abilify, there are weight loss medications we can consider. Some are expensive, but others are more affordable. Follow-Up: - Please return to the lab for blood work at your earliest convenience. - Keep us updated if you speak with your psychiatrist about your medications or if your symptoms change. - If you have any questions or concerns, please reach out through [employer] or call our office. documented in this encounter [facility] 05-04-2025 Note HNO ID: [id number] Author: ANN-MARIE VALDEZ APRN.PEDRITO Service: ? Author Type: Nurse Practitioner Type: Progress Notes Filed: 05/04/2025 18:44 Note Text: CC: Patient presents with: Headache: 3 out 7 days x 2-3 months with nausea, blurry vision, light sensitivity Bleeding/Bruising: X 2-3 months HPI Recording using [employer] software for draft documentation of the visit was discussed with the patient/authorized outside dealer sales representative; all questions welcomed and answered. 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 She is accompanied by her child. Cheo reports the onset of headaches approximately 3 months ago, occurring 3-4 times per week. The headaches are described as sharp and dull, primarily located on the top of the head, and are associated with photophobia, phonophobia, dizziness, and occasional blurred vision. The headaches vary in duration, lasting from a few hours to all day, and sometimes extending into the next day. She has tried Excedrin with minimal relief and has not attempted other non-pharmacological interventions such as resting in a dark, quiet room or using a cold washcloth. She denies a prior history of headaches and notes that her current medication Abilify, was started prior to the onset of the headaches. The headaches have remained consistent in frequency and intensity since their onset. She also reports easy bruising on her legs and arms without significant trauma, and denies hematochezia, melena, hematuria, gingival bleeding, or excessive bleeding from cuts. She denies fever, chills, night sweats, or excessive fatigue. Additionally, she expresses concern about recent weight gain despite dietary efforts, noting that her current weight is comparable to her weight during . She suspects that her medication may be contributing to the weight gain. She has been on fluoxetine for an extended period and started Abilify recently, both prescribed by her psychiatrist, Dr. Peterson. She had blood work done approximately a year ago, which included thyroid function tests. Her last recorded weight in March was 200 lbs, and today it is 207 lbs. She weighed 198 lbs a month ago. Review of Systems HENT: Negative for congestion, dental problem, sinus pressure, sinus pain, sneezing and sore throat. Respiratory: Negative for cough, shortness of breath and wheezing. Cardiovascular: Negative for chest pain, palpitations and leg swelling. Endocrine: Negative for cold intolerance, heat intolerance, polydipsia, polyphagia and polyuria. Neurological: Negative for tremors, seizures, syncope, facial asymmetry, speech difficulty, weakness and numbness. PAST MEDICAL HISTORY Diagnosis Date Anemia Depression Fatigue 12/16/2022 alcohol syndrome (HCC) PAST SURGICAL HISTORY Procedure Laterality Date MIRENA 02/14/2022 Placed in office PAST SURGICAL HISTORY OF right forearm tendon TOOTH EXTRACTION 2015 wisdom teeth ALLERGIES Patient has no known allergies. MEDICATIONS FLUoxetine (PROZAC) 20 mg capsule Take 1 capsule by mouth every afternoon. levonorgestrel (MIRENA) 20 mcg/24 hours (7 yrs) 52 mg IUD 1 Each by INTRAUTERINE route as directed. ARIPiprazole (ABILIFY) 5 mg tablet Take 1 tablet by mouth once daily. Prescribed by psychiatry SUMAtriptan (IMITREX) 50 mg tablet Take one tablet by mouth at the onset of the headache. If no improvement in 2 hours take one more tablet. No more than 2 tablets in 24 hours FAMILY HISTORY Problem Relation Age of Onset Alcohol/Drug Mother Alcohol/Drug Father other (cirrhosis of liver) Father No Known Problems Sister No Known Problems Sister No Known Problems Sister No Known Problems Sister No Known Problems Brother No Known Problems Maternal Grandmother No Known Problems Maternal Grandfather No Known Problems Paternal Grandmother No Known Problems Paternal Grandfather Social History Tobacco Use Smoking status: Never Smokeless tobacco: Never Vaping Use Vaping status: Never Used Substance Use Topics Alcohol use: Never Drug use: Never BP 124/82 Pulse 74 Resp 12 Ht 163 cm (5' 4.17") Wt 94 kg (207 lb 3.7 oz) LMP 02/11/2022 (LMP Unknown) SpO2 99% BMI 35.38 kg/m? Physical Exam Vitals reviewed. Constitutional: Appearance: Normal appearance. HENT: Head: Normocephalic and atraumatic. Mouth/Throat: Mouth: Mucous membranes are moist. Pharynx: Oropharynx is clear. Eyes: Extraocular Movements: Extraocular movements intact. Conjunctiva/sclera: Conjunctivae normal. Pupils: Pupils are equal, round, and reactive to light. Neck: Thyroid: No thyroid mass, thyromegaly or thyroid tenderness. Cardiovascular: Rate and Rhythm: Normal rate and regular rhythm. Heart sounds: Normal heart sounds. No murmur heard. Pulmonary: (more content not included)... [facility] 05-04-2025 History of Present illness Narrative CC: Patient presents with: Headache: 3 out 7 days x 2-3 months with nausea, blurry vision, light sensitivity Bleeding/Bruising: X 2-3 months HPI Recording using [employer] software for draft documentation of the visit was discussed with the patient/authorized outside dealer sales representative; all questions welcomed and answered. 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 She is accompanied by her child. Cheo reports the onset of headaches approximately 3 months ago, occurring 3-4 times per week. The headaches are described as sharp and dull, primarily located on the top of the head, and are associated with photophobia, phonophobia, dizziness, and occasional blurred vision. The headaches vary in duration, lasting from a few hours to all day, and sometimes extending into the next day. She has tried Excedrin with minimal relief and has not attempted other non-pharmacological interventions such as resting in a dark, quiet room or using a cold washcloth. She denies a prior history of headaches and notes that her current medication Abilify, was started prior to the onset of the headaches. The headaches have remained consistent in frequency and intensity since their onset. She also reports easy bruising on her legs and arms without significant trauma, and denies hematochezia, melena, hematuria, gingival bleeding, or excessive bleeding from cuts. She denies fever, chills, night sweats, or excessive fatigue. Additionally, she expresses concern about recent weight gain despite dietary efforts, noting that her current weight is comparable to her weight during . She suspects that her medication may be contributing to the weight gain. She has been on fluoxetine for an extended period and started Abilify recently, both prescribed by her psychiatrist, Dr. Peterson. She had blood work done approximately a year ago, which included thyroid function tests. Her last recorded weight in March was 200 lbs, and today it is 207 lbs. She weighed 198 lbs a month ago. Review of Systems HENT: Negative for congestion, dental problem, sinus pressure, sinus pain, sneezing and sore throat. Respiratory: Negative for cough, shortness of breath and wheezing. Cardiovascular: Negative for chest pain, palpitations and leg swelling. Endocrine: Negative for cold intolerance, heat intolerance, polydipsia, polyphagia and polyuria. Neurological: Negative for tremors, seizures, syncope, facial asymmetry, speech difficulty, weakness and numbness. PAST MEDICAL HISTORY Diagnosis Date Anemia Depression Fatigue 12/16/2022 alcohol syndrome (HCC) PAST SURGICAL HISTORY Procedure Laterality Date MIRENA 02/14/2022 Placed in office PAST SURGICAL HISTORY OF right forearm tendon TOOTH EXTRACTION 2015 wisdom teeth ALLERGIES Patient has no known allergies. MEDICATIONS FLUoxetine (PROZAC) 20 mg capsule Take 1 capsule by mouth every afternoon. levonorgestrel (MIRENA) 20 mcg/24 hours (7 yrs) 52 mg IUD 1 Each by INTRAUTERINE route as directed. ARIPiprazole (ABILIFY) 5 mg tablet Take 1 tablet by mouth once daily. Prescribed by psychiatry SUMAtriptan (IMITREX) 50 mg tablet Take one tablet by mouth at the onset of the headache. If no improvement in 2 hours take one more tablet. No more than 2 tablets in 24 hours FAMILY HISTORY Problem Relation Age of Onset Alcohol/Drug Mother Alcohol/Drug Father other (cirrhosis of liver) Father No Known Problems Sister No Known Problems Sister No Known Problems Sister No Known Problems Sister No Known Problems Brother No Known Problems Maternal Grandmother No Known Problems Maternal Grandfather No Known Problems Paternal Grandmother No Known Problems Paternal Grandfather Social History Tobacco Use Smoking status: Never Smokeless tobacco: Never Vaping Use Vaping status: Never Used Substance Use Topics Alcohol use: Never Drug use: Never BP 124/82 Pulse 74 Resp 12 Ht 163 cm (5' 4.17") Wt 94 kg (207 lb 3.7 oz) LMP 02/11/2022 (LMP Unknown) SpO2 99% BMI 35.38 kg/m Physical Exam Vitals reviewed. Constitutional: Appearance: Normal appearance. HENT: Head: Normocephalic and atraumatic. Mouth/Throat: Mouth: Mucous membranes are moist. Pharynx: Oropharynx is clear. Eyes: Extraocular Movements: Extraocular movements intact. Conjunctiva/sclera: Conjunctivae normal. Pupils: Pupils are equal, round, and reactive to light. Neck: Thyroid: No thyroid mass, thyromegaly or thyroid tenderness. Cardiovascular: Rate and Rhythm: Normal rate and regular rhythm. Heart sounds: Normal heart sounds. No murmur heard. Pulmonary: Effort: Pulmonary effort is normal. Breath sounds: Normal breath sounds. No wheezing, rhonchi or rales. Musculoskeletal: Cervical back: Normal range of motion and neck supple. No tenderness. Lymphadenopathy: Cervical: No cervical adenopathy. Upper Body: Right upper body: No supraclavicular adenopathy. Left upper body: No supraclavicular adenopathy. Skin: General: Skin is warm and dry. Neurological: General: No focal deficit present. Mental Status: She is alert and oriented to person, place, and time. Cranial Nerves: Cranial nerves 2-12 are intact. Sensory: Sensation is intact. Motor: Motor function is intact. Coordination: Coordination is intact. Gait: Gait is intact. Deep Tendon Reflexes: Reflexes are normal and symmetric. Psychiatric: Attention and Perception: Attention normal. Mood and Affect: Mood and affect normal. Speech: Speech normal. Behavior: Behavior normal. Behavior is cooperative. Thought Content: Thought content normal. Judgment: Judgment normal. Health maintenance reviewed with patient: Hepatitis B Vaccine(1 of 3 - 19+ 3-dose series) Never done Cervical Cancer Screening due on 11/25/2022 Covid-19 Vaccine( season) due on 05/04/2026 Influenza Vaccine(Season Ended) due on 08/01/2025 DTaP,Tdap,Td Vaccine(2 - Td or Tdap) due on 09/12/2031 Hepatitis C Screening Completed HIV Screening Completed DATA REVIEWED: Most recent labs and psychiatry notes Assessment/Plan 1. Frequent headaches (R51.9) Headaches occurring 3-4 times per week, described as sharp and dull, primarily on the top of the head. Associated with photophobia, phonophobia, dizziness, and occasional blurred vision. Duration varies from a few hours to over a day. No history of headaches prior to current episodes. Currently taking fluoxetine and aripiprazole, with aripiprazole started after the onset of headaches. Aripiprazole has a known side effect of headaches with an incidence of 12%. - Prescribed Imitrex, 2 tablets, to be taken at the onset of headache; may repeat one dose in 2 hours if no relief, not to exceed 2 tablets in 24 hours. - Discuss potential medication side effects with psychiatrist, Dr. Larry. 2. Weight gain (R63.5) Recent weight gain noted, with current weight at 207 lbs, up from 200 lbs in March and 198 lbs a month ago. Aripiprazole has a known side effect of weight gain with an incidence of 17-22%. - Discuss weight gain with psychiatrist, Dr. Larry, to consider alternative medications or adjunctive treatments to counteract weight gain. - Monitor weight regularly. 3. Easy bruising (R23.3) Reports easy bruising on legs and arms without significant trauma. Aripiprazole can cause easy bruising, though it is not a common side effect. No reports of hematuria, melena, gingival bleeding, or excessive bleeding from cuts. No fever, chills, night sweats, or excessive fatigue. - Ordered blood work to rule out anemia and other hematological causes. - Will review and [facility] 4. Recurrent major depressive disorder, remission status unspecified (F33.9) Currently managed with fluoxetine and aripiprazole. No changes in medication regimen. 5. Generalized anxiety disorder (F41.1) Currently managed with fluoxetine. No changes in medication regimen. 6. Cervical cancer screening (Z12.4) Overdue for screening, referral placed Prescription instructions reviewed with patient as applicable. Potential red flag symptoms discussed with the patient. Reviewed appropriate action plan to take if red flag symptoms occur. Patient agreeable to treatment plan. Ann-Marie Valdez APRN.TELEPHONE LINES REPAIRER documented in this encounter [facility] 08-12-2024 Telephone encounter Note Patient active MyChart. Patient notified via [employer] message. Estefania Carvalho MA [facility] 08-12-2024 Miscellaneous Notes Patient active MyChart. Patient notified via [employer] message. Estefania Carvalho MA Left VM instructing patient to return call to receive results. Kell Lima MA Please inform patient that there was a bacterial infection noted on urine culture. Keflex sent to pharmacy. Take antibiotics as prescribed. Follow-up with PCP if symptoms or not improving. Brody Gilliland APRN.TELEPHONE LINES REPAIRER documented in this encounter [facility] 08-12-2024 Telephone encounter Note Left VM instructing patient to return call to receive results. Kell Lima MA [facility] 08-12-2024 Telephone encounter Note Please inform patient that there was a bacterial infection noted on urine culture. Keflex sent to pharmacy. Take antibiotics as prescribed. Follow-up with PCP if symptoms or not improving. Brody Gilliland APRN.TELEPHONE LINES REPAIRER [facility] 08-09-2024 History of Present illness Narrative This note was created using NoteWriter. Subjective Cheo Woodson is a 29 year old female. 29 year old female with PMH depression, anxiety and fatigue presents for complaints of illness. Acute onset of sx 3 days ago +lower abdominal pain/pressure +lower back pain Feels weird while peeing LMP- 07/20/24 States recent coitus within the past week Denies fever or chills Denies N/V/D Denies skin rash or lesions. Endorses she has had a history of kidney infections, several years ago. 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 No speech/language therapist was used. Abdominal Pain This is a new problem. The current episode started more than 2 days ago. The problem occurs constantly. The problem has not changed since onset.The pain is associated with an unknown factor. The pain is located in the LLQ and RLQ. The quality of the pain is pressure-like. The pain is at a severity of 5/10. The pain is moderate. Pertinent negatives include anorexia, fever, belching, diarrhea, flatus, hematochezia, melena, nausea, vomiting, constipation, dysuria, frequency, hematuria, headaches, arthralgias and myalgias. Nothing aggravates the symptoms. Nothing relieves the symptoms. Past workup does not include GI consult, CT scan, ultrasound, surgery or barium enema. Her past medical history does not include PUD, gallstones, GERD, ulcerative colitis, Crohn's disease or irritable bowel syndrome. PAST MEDICAL HISTORY No date: Anemia No date: Depression No date: alcohol syndrome PAST SURGICAL HISTORY 02/14/2022: MIRENA Comment: Placed in office No date: PAST SURGICAL HISTORY OF Comment: right forearm tendon 2015: TOOTH EXTRACTION Comment: wisdom teeth ALLERGIES Patient has no known allergies. MEDICATIONS FLUoxetine (PROZAC) 20 mg capsule Take 1 capsule by mouth every afternoon. levonorgestrel (MIRENA) 20 mcg/24 hours (7 yrs) 52 mg IUD 1 Each by INTRAUTERINE route as directed. buPROPion XL (WELLBUTRIN XL) 150 mg 24 hr tablet Take 150 mg by mouth every morning. (Patient not taking: Reported on 04/12/2024) ergocalciferol 50,000 unit capsule (VITAMIN D2, DRISDOL) Take 1 capsule by mouth two times a week. (Patient not taking: Reported on 04/12/2024) FAMILY HISTORY Problem Relation Age of Onset Alcohol/Drug Mother Alcohol/Drug Father other (cirrhosis of liver) Father No Known Problems Sister No Known Problems Sister No Known Problems Sister No Known Problems Sister No Known Problems Brother No Known Problems Maternal Grandmother No Known Problems Maternal Grandfather No Known Problems Paternal Grandmother No Known Problems Paternal Grandfather Social History Tobacco Use Smoking status: Never Smokeless tobacco: Never Vaping Use Vaping status: Never Used Substance Use Topics Alcohol use: Never Drug use: Never Review of Systems Constitutional: Negative for activity change, appetite change, chills and fever. Eyes: Negative for discharge and itching. Respiratory: Negative for apnea, cough, choking and chest tightness. Cardiovascular: Negative for chest pain, palpitations and leg swelling. Gastrointestinal: Positive for abdominal pain. Negative for anorexia, constipation, diarrhea, flatus, hematochezia, melena, nausea and vomiting. Genitourinary: Negative for dysuria, frequency and hematuria. Musculoskeletal: Negative for arthralgias and myalgias. Skin: Negative for color change, pallor, rash and wound. Allergic/Immunologic: Negative for environmental allergies, food allergies and immunocompromised state. Neurological: Negative for dizziness, facial asymmetry, light-headedness, numbness and headaches. Hematological: Negative for adenopathy. Does not bruise/bleed easily. Psychiatric/Behavioral: Negative for agitation and behavioral problems. Objective LMP 02/11/2022 (LMP Unknown) BP 120/84 Pulse 70 Temp 36.9 C (98.4 F) Resp 19 Wt 85.7 kg (188 lb 15 oz) LMP 02/11/2022 (LMP Unknown) SpO2 100% BMI 32.06 kg/m Physical Exam Vitals and nursing note reviewed. Constitutional: General: She is not in acute distress. Appearance: Normal appearance. She is normal weight. She is not ill-appearing, toxic-appearing or diaphoretic. HENT: Head: Normocephalic and atraumatic. Right Ear: Ear canal and external ear normal. Left Ear: Ear canal and external ear normal. Nose: Nose normal. No congestion or rhinorrhea. Mouth/Throat: Mouth: Mucous membranes are moist. Pharynx: No oropharyngeal exudate or posterior oropharyngeal erythema. Eyes: General: Right eye: No discharge. Left eye: No discharge. Extraocular Movements: Extraocular movements intact. Conjunctiva/sclera: Conjunctivae normal. Pupils: Pupils are equal, round, and reactive to light. Cardiovascular: Rate and Rhythm: Normal rate and regular rhythm. Pulses: Normal pulses. Heart sounds: Normal heart sounds. No murmur heard. No friction rub. Pulmonary: Effort: Pulmonary effort is normal. No respiratory distress. Breath sounds: Normal breath sounds. No stridor. No wheezing, rhonchi or rales. Chest: Chest wall: No tenderness. Abdominal: General: Abdomen is flat. There is no distension. Palpations: Abdomen is soft. There is no mass. Tenderness: There is no abdominal tenderness. There is right CVA tenderness. There is no left CVA tenderness, guarding or rebound. Hernia: No hernia is present. Comments: No abdominal TTP +right sided CVA tenderness Musculoskeletal: General: No swelling, tenderness, deformity or signs of injury. Normal range of motion. Cervical back: Normal range of motion and neck supple. No rigidity. Right lower leg: No edema. Left lower leg: No edema. Lymphadenopathy: Cervical: No cervical adenopathy. Skin: General: Skin is warm and dry. Capillary Refill: Capillary refill takes less than 2 seconds. Coloration: Skin is not jaundiced or pale. Findings: No bruising, erythema, lesion or rash. Neurological: General: No focal deficit present. Mental Status: She is alert and oriented to person, place, and time. Cranial Nerves: No cranial nerve deficit. Sensory: No sensory deficit. Motor: No weakness. Coordination: Coordination normal. Gait: Gait normal. Psychiatric: Mood and Affect: Mood normal. Behavior: Behavior normal. Thought Content: Thought content normal. Judgment: Judgment normal. Assessment and Plan ASSESSMENT/PLAN: 1. Lower abdominal pain - ICD9: 789.09, ICD10: R10.30 (primary diagnosis) X 3 days Constant Abdomen benign with palpation Etiology unclear Differential Diagnosis includes GERD, Gastritis, IBS, IBD, Gall bladder colic/cholelithiasis, Diverticulitis, Kidney stones/colic, Appendicitis, Bladder distention, and Cystitis - Labs of CBC with Diff and CMP - [place] low residue diet - Follow up in 2 days or sooner if worsening of symptoms - Discussed red flags to seek ED - UA DIP, URINE (POC) - UA DIP,URINE HCG (POC) - COMPLETE BLOOD COUNT AND DIFFERENTIAL - COMPREHENSIVE METABOLIC PANEL 2. Acute right flank pain - ICD9: 789.09, 338.19, ICD10: R10.9 Etiology unclear Differential Diagnosis includes renal calculi and pyelo - Will obtain stat labs Unable to secure imaging at time of presentation Discussed possible for renal calculi Discussed red flags to seek ED - Follow up in 2 days or sooner if worsening of symptoms - COMPLETE BLOOD COUNT AND DIFFERENTIAL - COMPREHENSIVE METABOLIC PANEL Loyda Peters APRN.TELEPHONE LINES REPAIRER documented in this encounter [facility] 04-12-2024 History of Present illness Narrative Subjective HPI Nontoxic-appearing female presents urgent care chief complaint lower back pain. Duration of symptoms 4 days. Associated symptoms right sided lower back pain. Patient states history of low back pain this is similar. Has not used any OTC medications recently. Did use Motrin earlier this morning. This helped a little bit. States at times she feels like lower back pain radiates into her buttock. Denies any saddle anesthesia or incontinence. No traumatic injuries. Denies any fever body aches chills productive cough chest pain shortness of breath pleuritic pain hemoptysis nausea vomiting abdominal pain change in bowel or bladder habits. Past medical history prescription medication use and allergies reviewed. Is not . Is not breast-feeding. .Patient presents with: back and leg pain: Lower back and leg pain x 4 days PAST MEDICAL HISTORY Diagnosis Date Anemia Depression alcohol syndrome PAST SURGICAL HISTORY Procedure Laterality Date MIRENA 02/14/2022 Placed in office PAST SURGICAL HISTORY OF right forearm tendon TOOTH EXTRACTION 2015 wisdom teeth ALLERGIES Patient has no known allergies. MEDICATIONS FLUoxetine (PROZAC) 20 mg capsule Take 1 capsule by mouth every afternoon. levonorgestrel (MIRENA) 20 mcg/24 hours (7 yrs) 52 mg IUD 1 Each by INTRAUTERINE route as directed. buPROPion XL (WELLBUTRIN XL) 150 mg 24 hr tablet Take 150 mg by mouth every morning. (Patient not taking: Reported on 04/12/2024) ergocalciferol 50,000 unit capsule (VITAMIN D2, DRISDOL) Take 1 capsule by mouth two times a week. (Patient not taking: Reported on 04/12/2024) FAMILY HISTORY Problem Relation Age of Onset Alcohol/Drug Mother Alcohol/Drug Father other (cirrhosis of liver) Father No Known Problems Sister No Known Problems Sister No Known Problems Sister No Known Problems Sister No Known Problems Brother No Known Problems Maternal Grandmother No Known Problems Maternal Grandfather No Known Problems Paternal Grandmother No Known Problems Paternal Grandfather Social History Tobacco Use Smoking status: Never Smokeless tobacco: Never Vaping Use Vaping Use: Never used Substance Use Topics Alcohol use: Never Drug use: Never BP 110/78 Pulse 83 Temp 37 C (98.6 F) (Tympanic) Resp 18 Wt 86.8 kg (191 lb 5.8 oz) LMP 02/11/2022 (LMP Unknown) SpO2 98% BMI 32.47 kg/m Review of Systems Constitutional: Negative for chills, fever and malaise/fatigue. HENT: Negative for congestion, ear discharge, ear pain, sinus pain and sore throat. Eyes: Negative for blurred vision, pain, discharge and redness. Respiratory: Negative for cough, hemoptysis, sputum production, shortness of breath, wheezing and stridor. Cardiovascular: Negative for chest pain. Gastrointestinal: Negative for abdominal pain, diarrhea, nausea and vomiting. Musculoskeletal: Positive for back pain. Negative for falls, joint pain, myalgias and neck pain. Skin: Negative for itching and rash. Neurological: Negative for dizziness and headaches. Objective Physical Exam Constitutional: General: She is not in acute distress. Appearance: She is not toxic-appearing. HENT: Head: Normocephalic. Nose: Nose normal. Eyes: Pupils: Pupils are equal, round, and reactive to light. Cardiovascular: Rate and Rhythm: Normal rate. Pulmonary: Effort: Pulmonary effort is normal. No respiratory distress. Musculoskeletal: Cervical back: Normal range of motion. Thoracic back: No tenderness or bony tenderness. Normal range of motion. Lumbar back: Tenderness present. No swelling, edema or bony tenderness. Normal range of motion. Negative right straight leg raise test and negative left straight leg raise test. Comments: No spinal tenderness. Negative straight leg test. Able to stand on toes. No erythema edema noted. Skin: General: Skin is warm and dry. Neurological: General: No focal deficit present. Mental Status: She is alert. ASSESSMENT/PLAN: 1. Acute right-sided low back pain, unspecified whether sciatica present - ICD9: 724.2, ICD10: M54.50 Diagnosed with right sided back pain. Placed on prednisone. Do not take with NSAIDs. Patient was educated on supportive therapies. Patient will follow up with primary care provider as needed. Patient was instructed to immediately proceed to emergency room for any new, worsening, or symptoms lasting longer than anticipated. The patient's clinical presentation is otherwise unremarkable at this time. Based on exam and clinical finding, the patient is stable for discharge. Plan of care was discussed with patient. Patient verbalizes understanding and agrees to plan of care. This note was generated using [employer] software. It may contain errors in wording, punctuation, or spelling. Brody Gilliland APRN.TELEPHONE LINES REPAIRER documented in this encounter [facility] 05-22-2023 History of Present illness Narrative Subjective Patient ID: Cheo Woodson is a 28 y.o. female who presents for [facility] (Transferring from [place]./PAP done last year at [facility] and will continue to follow with them.) and Vertigo (Seen at ER Friday for dizziness, vomiting and nausea. Prescribed Meclizine and Zofran./Patient states symptoms better but continues with dizziness intermittently with movement.). HPI Patient presents to [facility]. Patient has medical history of anxiety depression well managed with Wellbutrin by psychiatry. Patient presents in ER follow-up. Patient was seen and treated in the ER 3 days ago and diagnosed and treated for vertigo. Patient reports good results with the treatment but persistent symptoms. Patient reports intermittent dizziness exacerbated by movement with associated nausea and even vomiting. No fever or chills. 2 weeks ago, the patient was treated for sinusitis and otitis media with an antibiotic. There is associated fairly severe headaches after the periods of dizziness. Patient was prescribed Antivert and Zofran which have not had any effect. Currently, the patient is not symptomatic in this regard but does report postauricular pain extending into the neck. Review of Systems Constitutional: See HPI Eye: No recent visual problem. ENT: See HPI Respiratory: No shortness of breath, No cough. Cardiovascular: No chest pain. Gastrointestinal: See HPI Genitourinary: No dysuria, No hematuria. Musculoskeletal: No decreased range of motion. Integumentary: No rash. Neurologic: See HPI All other systems are negative Objective BP 118/78 Pulse 84 Temp 36.4 C (97.5 F) Ht 1.651 m (5' 5") Wt 95.5 kg (210 lb 9.6 oz) SpO2 99% BMI 35.05 kg/m Physical Exam General: Alert and oriented, No acute distress. Eye: Pupils are equal, round and reactive to light, Extraocular movements are intact, Normal conjunctiva. HENT: Bilateral tympanic membranes are opaque with effusion; no injection or exudate Neck: Supple, Non-tender, No lymphadenopathy. Respiratory: Lungs are clear to auscultation, Respirations are non-labored, Breath sounds are equal Cardiovascular: Normal rate, Regular rhythm. Gastrointestinal: Non-distended. Musculoskeletal: Normal range of motion, Normal strength, No tenderness, No swelling, No deformity, Normal gait. Integumentary: Warm, Dry, Intact, No pallor, No rash. Neurologic: Alert, Oriented, Normal sensory, Normal motor function, No focal deficits, Cranial Nerves II-XII are grossly intact Psychiatric: Cooperative, Appropriate mood & affect. Assessment/Plan Anxiety and depression: Continue Wellbutrin and following with psychiatry Vertigo with associated headaches: Continue Zofran and Antivert as needed. Likely course reviewed. Prescription for Fioricet. OARRS reviewed, appropriate, and consistent with provided history Exam did reveal bilateral serous otitis media with eustachian tube tenderness on the right. Prescription for Z-Giles, medium prednisone taper, and Bromfed. Follow-up as needed Problem List Items Addressed This Visit None Visit Diagnoses Anxiety and depression - Primary Acute intractable headache, unspecified headache type Relevant Medications upkzjhvydp-okaqmbxpnzivs-lgej (Fioricet) 50-300-40 mg capsule Bilateral serous otitis media, unspecified chronicity Relevant Medications azithromycin (Zithromax) 250 mg tablet phtlnuntcsofrdd-lzhtgogwg-XN (Bromfed DM) 2-30-10 mg/5 mL syrup predniSONE (Deltasone) 10 mg tablet Benign paroxysmal positional vertigo, unspecified laterality Final diagnoses: [F41.9, F32.A] Anxiety and depression [R51.9] Acute intractable headache, unspecified headache type [H65.93] Bilateral serous otitis media, unspecified chronicity [H81.10] Benign paroxysmal positional vertigo, unspecified laterality documented in this encounter [facility] Work Phone: 04-30-2023 History of Present illness Narrative This note was created using [employer]. Subjective Cheo Woodosn is a 28 year old female. 28 year old female with no PMH presents for complaints of illness. Acute onset one week ago +sinus pressure +headache + ear pain Left greater than right +cough +productive +post nasal drainage Tylenol Thea D Denies tobacco usage. The history is provided by the patient. No speech/language therapist was used. Sinus Problem This is a new problem. The current episode started 1 to 4 weeks ago. The problem occurs constantly. The problem has been gradually worsening. Associated symptoms include congestion, coughing and headaches. Pertinent negatives include no abdominal pain, anorexia, arthralgias, change in bowel habit, chest pain, chills, diaphoresis, fatigue, fever, joint swelling, myalgias, nausea, neck pain, numbness, rash, sore throat, swollen glands, urinary symptoms, vertigo, visual change, vomiting or weakness. Nothing aggravates the symptoms. She has tried nothing for the symptoms. The treatment provided no relief. PAST MEDICAL HISTORY Diagnosis Date Anemia Depression alcohol syndrome PAST SURGICAL HISTORY Procedure Laterality Date MIRENA 02/14/2022 Placed in office PAST SURGICAL HISTORY OF right forearm tendon TOOTH EXTRACTION 2015 wisdom teeth ALLERGIES Patient has no known allergies. MEDICATIONS buPROPion XL (WELLBUTRIN XL) 150 mg 24 hr tablet Take 150 mg by mouth every morning. ergocalciferol 50,000 unit capsule (VITAMIN D2, DRISDOL) Take 1 capsule by mouth two times a week. levonorgestrel (MIRENA) 20 mcg/24 hours (7 yrs) 52 mg IUD 1 Each by INTRAUTERINE route as directed. amoxicillin-clavulanic acid (AUGMENTIN) 875-125 mg per tablet Take 1 tablet by mouth twice daily for 7 days. FAMILY HISTORY Problem Relation Age of Onset Alcohol/Drug Mother Alcohol/Drug Father other (cirrhosis of liver) Father No Known Problems Sister No Known Problems Sister No Known Problems Sister No Known Problems Sister No Known Problems Brother No Known Problems Maternal Grandmother No Known Problems Maternal Grandfather No Known Problems Paternal Grandmother No Known Problems Paternal Grandfather Social History Tobacco Use Smoking status: Never Smokeless tobacco: Never Vaping Use Vaping Use: Never used Substance Use Topics Alcohol use: Never Drug use: Never Review of Systems Constitutional: Negative for chills, diaphoresis, fatigue and fever. HENT: Positive for congestion, ear pain, postnasal drip, sinus pressure and sinus pain. Negative for sore throat. Respiratory: Positive for cough. Negative for apnea, choking and chest tightness. Cardiovascular: Negative for chest pain, palpitations and leg swelling. Gastrointestinal: Negative for abdominal pain, anorexia, change in bowel habit, nausea and vomiting. Musculoskeletal: Negative for arthralgias, joint swelling, myalgias and neck pain. Skin: Negative for rash. Allergic/Immunologic: Negative for environmental allergies, food allergies and immunocompromised state. Neurological: Positive for headaches. Negative for vertigo, weakness and numbness. Hematological: Negative for adenopathy. Does not bruise/bleed easily. Psychiatric/Behavioral: Negative for agitation and behavioral problems. Objective BP 124/82 Pulse 97 Temp 37 C (98.6 F) Resp 18 Wt 97.4 kg (214 lb 12.8 oz) LMP 02/11/2022 (LMP Unknown) SpO2 99% BMI 36.45 kg/m Physical Exam Vitals and nursing note reviewed. Constitutional: General: She is not in acute distress. Appearance: Normal appearance. She is normal weight. She is not ill-appearing, toxic-appearing or diaphoretic. HENT: Head: Normocephalic and atraumatic. Comments: +frontal sinus pressure Right Ear: Ear canal and external ear normal. Left Ear: Ear canal and external ear normal. Ears: Comments: Left TM erythematous and bulging. Nose: Nose normal. No congestion or rhinorrhea. Mouth/Throat: Mouth: Mucous membranes are moist. Pharynx: No oropharyngeal exudate or posterior oropharyngeal erythema. Eyes: General: Right eye: No discharge. Left eye: No discharge. Extraocular Movements: Extraocular movements intact. Conjunctiva/sclera: Conjunctivae normal. Pupils: Pupils are equal, round, and reactive to light. Cardiovascular: Rate and Rhythm: Normal rate and regular rhythm. Pulses: Normal pulses. Heart sounds: Normal heart sounds. No murmur heard. No friction rub. Pulmonary: Effort: Pulmonary effort is normal. No respiratory distress. Breath sounds: Normal breath sounds. No stridor. No wheezing, rhonchi or rales. Chest: Chest wall: No tenderness. Abdominal: General: Abdomen is flat. There is no distension. Palpations: Abdomen is soft. There is no mass. Tenderness: There is no abdominal tenderness. There is no right CVA tenderness, left CVA tenderness, guarding or rebound. Hernia: No hernia is present. Musculoskeletal: General: No swelling, tenderness, deformity or signs of injury. Normal range of motion. Cervical back: Normal range of motion and neck supple. No rigidity. Right lower leg: No edema. Left lower leg: No edema. Lymphadenopathy: Cervical: No cervical adenopathy. Skin: General: Skin is warm and dry. Capillary Refill: Capillary refill takes less than 2 seconds. Coloration: Skin is not jaundiced or pale. Findings: No bruising, erythema, lesion or rash. Neurological: General: No focal deficit present. Mental Status: She is alert and oriented to person, place, and time. Cranial Nerves: No cranial nerve deficit. Sensory: No sensory deficit. Motor: No weakness. Coordination: Coordination normal. Gait: Gait normal. Psychiatric: Mood and Affect: Mood normal. Behavior: Behavior normal. Thought Content: Thought content normal. Judgment: Judgment normal. Assessment and Plan ASSESSMENT/PLAN: 1. Rhinosinusitis - ICD9: 473.9, ICD10: J31.0, J32.9 (primary diagnosis) - Will begin treatment with as per antibiotic as written, see orders - The patient should also be given OTC cough and cold meds as needed, warm salt water gargles, throat lozenges and/or OTC throat spray as needed, and nasal saline gtts and suction prn for the first 5-7 days of treatment. - Supportive care with plenty of fluids, rest, and analgesia prn. - Follow up in 3-5 days if symptoms persist or worsen. 2. Left otitis media, unspecified otitis media type - ICD9: 382.9, ICD10: H66.92 - Will begin treatment with as per antibiotic as written, see orders - The patient should also be given OTC cough and cold meds as needed, warm salt water gargles, throat lozenges and/or OTC throat spray as needed, and nasal saline gtts and suction prn for the first 5-7 days of treatment. - Supportive care with plenty of fluids, rest, and analgesia prn. - Follow up in 3-5 days if symptoms persist or worsen. Loyda Peters APRN.PEDRITO documented in this encounter [facility] 12-16-2022 Instructions Ann-Marie Quesada APRN.CNP - 12/16/2022 2:50 PM EST Weight loss medications Least expensive: Wellbutrin Topamax (can have a lot of side effects) Phentermine (controlled substance, can only be on for 3 months and have to be off for 6 months) Most expensive: Contrave Qsymia (has phentermine in it, can be on indefinitely) Wegovy (injectable-very expensive but may be eligible for co -pay card) Saxenda (injectable-very expensive by may be eligible for co-pay card) documented in this encounter [facility] 12-16-2022 History of Present illness Narrative CC: Patient presents with: Establish Care Physical HPI Cheo Woodson is a 27 year old female who presents today for above. Exercise: denies regular aerobic exercise. Diet: Watches diet for salt (salty snacks, added salt, processed frozen/canned foods), sugary/sweet snacks, unhealthy fats: Yes Feels like she can't lost weight no matter what she does. For the past year constantly feels exhausted. No history of COVID prior to this that she is aware of. She has anxiety and depression, currently in counseling. She was referred to psychiatry by her counselor for medication management, has appointment next month. REVIEW OF SYSTEMS GENERAL: Negative for unexplained fevers, chills, night sweats HEENT: Reports frequent headaches. Negative for significant change in vision, significant vision problems, significant ear problems or hearing loss, nasal discharge, or nose bleeds RESPIRATORY: Negative for cough, wheezing and shortness of breath CARDIOVASCULAR: Negative for chest pain, leg swelling and palpitations GI: Negative for abdominal discomfort, blood in stools or black stools, change in bowel habit, heart burn, nausea, vomiting : Negative for dysuria, frequency and incontinence MUSCULOSKELETAL: Negative for joint pain or swelling, back pain, and muscle pain. PSYCH: See HPI Endocrine: reports cold intolerance. no LE edema, no tremors, no hair loss, no dry skin, no heat intolerance, menstrual cycles being irregular, no neck pain/pressure, no polyuria, no polyphagia, no polydipsia, and no nocturia >1 PAST MEDICAL HISTORY Diagnosis Date Anemia Depression alcohol syndrome PAST SURGICAL HISTORY Procedure Laterality Date MIRENA 02/14/2022 Placed in office PAST SURGICAL HISTORY OF right forearm tendon TOOTH EXTRACTION 2015 wisdom teeth ALLERGIES Patient has no known allergies. MEDICATIONS levonorgestrel (MIRENA) 20 mcg/24 hours (7 yrs) 52 mg IUD 1 Each by INTRAUTERINE route as directed. FAMILY HISTORY Problem Relation Age of Onset Alcohol/Drug Mother Alcohol/Drug Father other (cirrhosis of liver) Father No Known Problems Sister No Known Problems Sister No Known Problems Sister No Known Problems Sister No Known Problems Brother No Known Problems Maternal Grandmother No Known Problems Maternal Grandfather No Known Problems Paternal Grandmother No Known Problems Paternal Grandfather Social History Tobacco Use Smoking status: Never Smokeless tobacco: Never Vaping Use Vaping Use: Never used Substance Use Topics Alcohol use: Never Drug use: Never PHYSICAL EXAM BP 123/85 Pulse 80 Resp 16 Ht 163.5 cm (5' 4.37") Wt 97.5 kg (215 lb) LMP 02/11/2022 (LMP Unknown) BMI 36.48 kg/m General Appearance: well appearing, in no acute distress, alert Pysch: mood and affect broad and appropriate Skin: Skin color, texture, turgor normal for age; Eyes: conjunctiva pink and moist, no icterus, sclera white, non-injected Neck: Thyroid normal size and symmetric without palpable nodules, Neck supple, No adenopathy Lymph nodes: No supraclavicular lymphadenopathy Lungs: Lungs clear to auscultation. No wheezing, rhonchi, rales. Heart: RRR without murmur, gallop, or rubs. No ectopy Ext: no edema in LE bilaterally, good distal pulses Health maintenance reviewed with patient: HEPATITIS B(1 of 3 - 3-dose series) Never done HPV VACCINE(1 - 2-dose series) Never done DEPRESSION ASSESSMENT Never done PAP TESTING due on 11/25/2022 INFLUENZA(1) due on 05/30/2023 COVID-19 VACCINE(1) due on 12/16/2023 DTAP,TDAP,TD(2 - Td or Tdap) due on 09/12/2031 HEPATITIS C SCREENING Completed HIV SCREENING Completed ASSESSMENT/PLAN: 1. Wellness examination - ICD9: V70.0, ICD10: Z00.00 (primary diagnosis) - Counseled on healthy diet and regular exercise - Calcium intake with supplements or by diet of 1000 mg/day for under 50, 4033-5526 mg/day for 50+ - Due for PAP, call CLINICAL LAB TECHNOLOGIST to schedule - Depression screening tool completed and reviewed with patient. Based on score and interview, patient is already diagnosed with depression and recommended continuing current plan of care. - Patient was counseled [id number] by myself (the billing provider) for the following immunizations and vaccine components, including side effects: COVID-19, Hep B Vaccine, and Influenza. Patient consents for immunization and understands risks and benefits. A VIS sheet on each immunization was given to the patient. - Follow up for annual exam in one year 2. Fatigue, unspecified type - ICD9: 780.79, ICD10: R53.83 Multiple possible etiologies Check labs: - TSH BLD - CBC + DIFF - COMP METABOLIC PANEL - VITAMIN D 25 HYDROXY If all normal fatigue likely a physical symptom of depression/anxiety 3. Weight gain - ICD9: 783.1, ICD10: R63.5 Check labs. Discussed treatment options briefly, given list of wt loss medications - TSH BLD 4. Depression with anxiety - ICD9: 300.4, ICD10: F41.8 Continue with counseling and psychiatry referral 5. Obesity, Class II, BMI 35-39.9 - ICD9: 278.00, ICD10: E66.9 Weight increasing, see #3 Prescription instructions reviewed with patient as applicable. Potential red flag symptoms discussed with the patient. Reviewed appropriate action plan to take if red flag symptoms occur. Patient agreeable to treatment plan. Ann-Marie Quesada APRN.CNP documented in this encounter [facility] 03-27-2022 History of Present illness Narrative Cheo Woodson presents today for IUD check. She had a Mirena placed on 02/14/2022. She has had spotting since placement. REVIEW OF SYSTEMS: PAIN ASSESSMENT: Negative for pain, history of chronic pain, or current treatment for a chronic pain condition. CLINICAL LAB TECHNOLOGIST: Negative for abnormal vaginal bleeding, abnormal vaginal discharge PHYSICAL EXAMINATION: BP 110/70 Wt 199 lb (90.3kg) LMP 02/11/2022 ABDOMEN:soft, non-tender, no masses, no hepatosplenomegaly and no lymphadenopathy EXTERNAL GENITALIA: Normal genitalia and Bartholins, Urethra, Sken'e normal CERVIX: smooth, no lesions. IUD strings visible. UTERUS: normal size ADNEXA: negative for tenderness or masses IMPRESSION/PLAN: IUD correctly positioned. Patient counseled regarding monthly string check. Follow up for annual exam or sooner if needed. Jimena Millan APRN.CNM documented in this encounter [facility] 09-27-2021 History of Past i llness Narrative Problem Noted Date Resolved Date Supervision of high risk in third trim toby 09/27/2021 01/22/2022 Obesity in 07/18/2021 01/22/2022 Overview: BMI 30 kg/m2 Patient request for diagnostic testing 01/22/2022 Overview: 04/26/2021 Patient desires nuchal ultrasound. Considering genetic carrier screening testing.TKRN documented as of this encounter (statuses as of 03/27/2022) [facility]10[facility]21 History of Past illness Narrative* Problem Noted Date Resolved Date Supervision of high risk in third trim toby 09/27/2021 01/22/2022 Obesity in 07/18/2021 01/22/2022 Overview: BMI 30 kg/m2 Patient request for diagnostic testing 1 01/22/2022 Overview: 04/26/2021 Patient desires nuchal ultrasound. Considering genetic carrier screening testing.TKRN documented as of this encounter (statuses as of 12/16/2022) [facility] History of Past illness Narrative* Problem Noted Date Resolved Date Supervision of high risk in third trim toby 09/27/2021 01/22/2022 Obesity in 07/18/2021 01/22/2022 Overview: BMI 30 kg/m2 Patient request for diagnostic testing 01/22/2022 Overview: 04/26/2021 Patient desires nuchal ultrasound. Considering genetic carrier screening testing.TKRN documented as of this encounter (statuses as of 12/18/2022) [facility] History of Past illness Narrative* Problem Noted Date Resolved Date Supervision of high risk in third trim toby 09/27/2021 01/22/2022 Obesity in 07/18/2021 01/22/2022 Overview: BMI 30 kg/m2 Patient request for diagnostic testing 01/22/2022 Overview: 04/26/2021 Patient desires nuchal ultrasound. Considering genetic carrier screening testing.TKRN documented as of this encounter (statuses as of 12/18/2022) [address]28-2021 History of Past illness Narrative* Problem Noted Date Resolved Date Supervision of high risk in third trim toby 09/27/2021 01/22/2022 Obesity in 07/18/2021 01/22/2022 Overview: BMI 30 kg/m2 Patient request for diagnostic testing 01/22/2022 Overview: 04/26/2021 Patient desires nuchal ultrasound. Considering genetic carrier screening testing.TKRN documented as of this encounter (statuses as of 05/01/2023) [facility] note* Diagnosis Encounter for surveillance of other contraceptive- Primary documented in this encounter [facility] note* Diagnosis Wellness examination- Primary Fatigue, unspecified type Weight gain Abnormal weight gain Depression with anxiety Dysthymic disorder Obesity, Class II, BMI 35-39.9 Obesity, unspecified documented in this encounter [facility] note* Diagnosis Vitamin D deficiency- Primary Unspecified vitamin D deficiency documented in this encounter [facility] note* Diagnosis Rhinosinusitis- Primary Unspecified sinusitis (chronic) Left otitis media, unspecified otitis media type documented in this encounter [facility] note* Diagnosis Anxiety and depression- Primary Acute intractable headache, unspecified headache type Bilateral serous otitis media, unspecified chronicity Benign paroxysmal positional vertigo, unspecified laterality documented in this encounter [facility] Work Phone: Evaluation note* Diagnosis Acute right-sided low back pain, unspecified whether sciatica present- Primary documented in this encounter [facility] note* Diagnosis Lower abdominal pain- Primary Abdominal pain, other specified site Acute right flank pain Abdominal pain, unspecified site documented in this encounter [facility] note* Diagnosis Frequent headaches- Primary Weight gain Abnormal weight gain Easy bruising Other symptoms involving skin and integumentary tissues Recurrent major depressive disorder, remission status unspecified Generalized anxiety disorder Cervical cancer screening Screening for malignant neoplasm of the cervix documented in this encounter [facility] note* Diagnosis Encounter for IUD removal- Primary Encounter for removal of intrauterine contraceptive device documented in this encounter [facility] Summary Purpose Family History No Family History Records FoundNo Family History Records FoundNo Family History Records FoundNo Family History Records Found Advance Directives No Advanced Directives Records FoundNo Advanced Directives Records FoundNo Advanced Directives Records FoundNo Advanced Directives Records Found Additional Source Comments Source Comments (unrecognize d section and content) In the event this informatio n is protected by the Federal Confidentiality of Alcohol and Drug Abuse Patient Records regulations: The Federal rules restrict any use of the information to criminally investigate or prosecute any alcohol or drug abuse patient.[facility] the event this information is protected by the Federal Confidentiality of Alcohol and Drug Abuse Patient Records regulations: The Federal rules restrict any use of the information to criminally investigate or prosecute any alcohol or drug abuse patient.[facility] the event this information is protected by the Federal Confidentiality of Alcohol and Drug Abuse Patient Records regulations: The Federal rules restrict any use of the information to criminally investigate or prosecute any alcohol or drug abuse patient.[facility] the event this information is protected by the Federal Confidentiality of Alcohol and Drug Abuse Patient Records regulations: The Federal rules restrict any use of the information to criminally investigate or prosecute any alcohol or drug abuse patient.[facility] the event this information is protected by the Federal Confidentiality of Alcohol and Drug Abuse Patient Records regulations: The Federal rules restrict any use of the information to criminally investigate or prosecute any alcohol or drug abuse patient.[facility] the event this information is protected by the Federal Confidentiality of Alcohol and Drug Abuse Patient Records regulations: The Federal rules restrict any use of the information to criminally investigate or prosecute any alcohol or drug abuse patient.[facility] the event this information is protected by the Federal Confidentiality of Alcohol and Drug Abuse Patient Records regulations: The Federal rules restrict any use of the information to criminally investigate or prosecute any alcohol or drug abuse patient.[facility] the event this information is protected by the Federal Confidentiality of Alcohol and Drug Abuse Patient Records regulations: The Federal rules restrict any use of the information to criminally investigate or prosecute any alcohol or drug abuse patient.[facility] the event this information is protected by the Federal Confidentiality of Alcohol and Drug Abuse Patient Records regulations: The Federal rules restrict any use of the information to criminally investigate or prosecute any alcohol or drug abuse patient.[facility] the event this information is protected by the Federal Confidentiality of Alcohol and Drug Abuse Patient Records regulations: The Federal rules restrict any use of the information to criminally investigate or prosecute any alcohol or drug abuse patient.[facility] Reason for Visit (unrecogniz ed section and content) Reason Comments IUD Reason Comments Establish Care Physical Reason Comments Head Congestion AMOS, sinus pressure, cough, bilateral ear pain x1 week Reason Comments Establish Care Transferring from [facility].PAP done last year at [facility] and will continue to follow with them. Vertigo Seen at ER Friday for dizziness, vomiting and nausea. Prescribed Meclizine and Zofran.Patient states symptoms better but continues with dizziness intermittently with movement. Reason Comments back and leg pain Lower back and leg p ain x 4 days Reason Comments Abdominal Pain Lowe abdominal/lower back pain x 3 days Reason Comments Results Reason Comments Headache 3 out 7 days x 2-3 m onths with nausea, blurry vision, light sensitivity Bleeding/Bruising X 2-3 months Specialty Diagnoses / Procedures Referred By Russ muller Referred To Contact [facility] DEPARTMENT Diagnoses . Procedures . [facility] [address] [place] [address] [facility] [place] [address] Referral ID Status Reason Start Date Expiration Date Visits Requested Visits Authorized [id number] Authorized Financial Clearance Required - Self Pay Patient Cleared - Qualified HCAP/FA Referred for YOLANDA 04/30/2025 07/29/[phone] Reason Comments Orders <item> Privacy Markings (unrecogniz ed section and content) Section Author: Sweta Grubbs PROHIBITION ON REDISCLOSURE OF CONFIDENTIAL INFORMATION This notice accompanies a disclosure of information concerning a client made to you with the consent of such client. INFORMATION SOURCE (unrecogn ized section and content) DATE CREATED AUTHOR 05/22/2023 [facility] DATE CREATED AUTHOR AUTHOR'S ORGANIZ ATION 05/23/2023 [facility] DATE CREATED AUTHOR AUTHOR'S ORGANIZ ATION 09/08/2025 [facility] DATE CREATED AUTHOR AUTHOR'S ORGANIZ ATION 09/09/2025 [facility] Care Teams (unrecognized sec tion and content) Physical Therapy Assistant Relationship Specialty Start Date End Date Freddie Bolanos PA-C [address] [facility] [place] [address] PCP - General Internal Medicine 05/21/23 Physical Therapy Assistant Relationship Specialty Start Date End Date Alphonso Bueno MD [address] [place], [place] [id number] PCP - General Internal Medicine 09/15/24 Ann-Marie Valdez, CARE ASST.TELEPHONE LINES REPAIRER [address] [place], [place] [address] Mimeograph Operator Internal Medicine 11/08/24 Physical Therapy Assistant Relationship Specialty Start Date End Date Alphonso Bueno MD [address] [place] [address] PCP - General Internal Medicine 09/15/24 Ann-Marie Valdez, CARE ASST.TELEPHONE LINES REPAIRER [address] [place] [address] [facility] Internal Medicine 11/08/24 FOR RECORDS PERTAINING TO PATIENTS WHO ARE OR HAVE BEEN ENROLLED IN A CHEMICAL DEPENDENCY/SUBSTANCEABUSE PROGRAM, SOME INFORMATION MAY BE OMITTED. This clinical summary was aggregated from multiple sources. Caution should be exercised in using it in the provision of clinical care. This summary normalizes information from multiple sources, and as a consequence, information in this document may materially change the coding, format and clinical context of patient data. In addition, data may be omitted in some cases. CLINICAL DECISIONS SHOULD BE BASED ON THE PRIMARY CLINICAL RECORDS. [employer] provides no warranty or guarantee of the accuracy or completeness of information in this document.
[2025-10-11 15:31] VITALS: BP 107/67; PULSE 87; RESP 15; TEMP 36.8; O2SAT 99
== END 2025-10-11 16:01 | disposition home or self-care (01) ==
PROVIDERS: Emergency Provider Emergency Medicine; Visit Provider Emergency Medicine
DX: S29.011A Strain of muscle and tendon of front wall of thorax, initial encounter (principal); R07.9 Chest pain, unspecified; X58.XXXA Exposure to other specified factors, initial encounter
CPT/HCPCS: 71046; 80048; 84484; 84703; 85025; 93005; 96360; 99284; A4216